=== PATIENT | male | born 1950 | race Caucasian/White ===

== ENCOUNTER 2022-08-26 03:35 | Inpatient (IN) ==
[2022-08-26] MEDS ORDERED: ONDANSETRON INJ 2 MG/ML 2 ML VIAL IV STA (05:18)
[2022-08-26] MEDS ORDERED: HYDROmorphone INJ 0.5 MG/0.5 ML SYR IV STA ×2 (05:18→07:38)
[2022-08-26 05:33] LABS: Appearance Urine Clear (Clear); Bilirubin Urine Negative (Negative); Blood Urine Negative (Negative); Color Urine Dark Yellow; Glucose Urine UA Negative (Negative); Ketones Urine 2+ (Negative); Leukocyte Esterase Urine Negative (Negative); Nitrite Urine Negative (Negative); Protein Urine Negative (Negative); Specific Gravity Urine 1.022 (1.000-1.030); Urobilinogen Urine Negative (Negative)
[2022-08-26 05:33] LABS: Basophils # (auto) 0.03 K/uL (0-0.2); Basophils % (auto) 0.3 %; Eosinophils % (auto) 2.2 %; Hematocrit (blood only) 39.8 % (40.1-51.0); Hemoglobin 14.3 g/dl (14.0-18.0); Immature Granulocytes # (auto) 0.03 K/uL (0.00-0.02); Immature Granulocytes % (auto) 0.3 %; Lymphocytes # (auto) 1.26 K/uL (1.2-3.4); Lymphocytes % (auto) 13.9 %; Mean Corpuscular Hemoglobin 33.9 pg (25.0-34.0); Mean Corpuscular Hgb Conc 35.9 g/dL (32.0-36.0); Mean Corpuscular Volume 94.3 fL (80.0-100.0); Mean Platelet Volume 10.4 fL (9.4-12.4); Monocytes # (auto) 0.58 K/uL (0.24-0.82); Monocytes % (auto) 6.4 %; Neutrophils # (auto) 6.95 K/uL (1.4-6.5); Neutrophils % (auto) 76.9 %; Platelet Count 159 K/uL (130-400); RDW Coefficient of Variation 12.6 % (11.5-14.5); RDW Standard Deviation 42.9 fL (36.4-46.3); Red Blood Count 4.22 M/uL (4.63-6.08); White Blood Count 9.05 K/ul (4.8-10.8)
[2022-08-26] MEDS ORDERED: SODIUM CHLORIDE 0.9% 1000ML 1,000 ML IV ONE (05:40)
[2022-08-26 05:42] LABS: iSTAT Creatinine 0.6 mg/dl (0.6-1.3); iSTAT Hemoglobin 12.6 g/dl (14.0-18.0); iSTAT Ionized Calcium 1.12 mmol/l (1.12-1.32)
[2022-08-26 05:42] LABS: Albumin Globulin Ratio 1.8 (0.9-2); Albumin Level 4.6 gm/dl (3.4-5.0); BUN Creatinine Ratio 30.2 (10-20); Bilirubin,Total 1.5 mg/dl (0.2-1.0); Calcium 9.8 mg/dl (8.5-10.1); Creatinine Clr Calc Pharmacy 96.3 ml/min; Est GFR (African American) 112.5 ml/min; Est GFR (Non-African American) 97.1 ml/min; Globulin 2.5 gm/dl (2.5-4.0); Potassium 3.9 mmol/L (3.5-5.1); Total Protein 7.1 gm/dl (6.0-8.3)
[2022-08-26] MEDS ORDERED: OPTIRAY 350 100ml IV ONE (05:45)
--- NOTE | 2022-08-26 07:23 | Emergency Department Note ---
Impression & Plan Small bowel obstruction Admit to the [facility] service ED Provider Note NAME: VINCE JAMIL AGE: 72 SEX: M ARRIVES VIA: Walk-In INFORMANT: Patient and his ED PROVIDER(S): Katiana Dalton DO CHIEF COMPLAINT: Abdominal pain PLAN: Disposition: Admit to the [facility] service Condition: Stable MEDICAL DECISION MAKING: This is a 72-year-old male patient who presents to the emergency department with abdominal pain. Patient does have a history of abdominal pain but states this is the worst episode has lasted the longest. Patient has a history of an abdominal hernia. I cannot appreciate a hernia on my physical exam. Patient has required IV analgesia for the pain. CT scan shows evidence of a high-grade partial small bowel obstruction. He has been on IV fluids and is remained n.p.o. [facility] will [facility] for further management. Triage Nursing notes reviewed and agree with them. Additional history obtained from his who is at the bedside Prior medical records reviewed Vital Signs: reviewed and unremarkable Differential diagnosis: Bowel obstruction, ileus, colitis, diverticulitis, incarcerated hernia ER treatment provided: IV Dilaudid IV Zofran IV normal saline Diagnostics interpreted by me: Cardiac Monitoring: Normal sinus rhythm at a rate of 80 Laboratory studies: See below Imaging studies: As per stat rad CT ABDOMEN & PELVIS With Contrast: Dilated loops of small bowel measure up to 3.3 cmwith a collapsed appearance of distal small bowel loops. Findings are c ompatible with a high-grade small bowel obstruction. Zone of transition is in the left hemipelvis likely related to adhesions Status post cholecystectomy Moderate ascites is likely associated with the small bowel process HPI: 72/M arrives for evaluation of abdominal pain. Patient developed significant periumbilical abdominal pain at noon time yesterday. He had no appetite and stopped eating. Patient has a history of bacterial over the growth in his abdomen since last year and has lost approximately 50 pounds. He takes Bentyl and stool softeners regularly for chronic abdominal pain. He has a history of diverticulitis and a hernia. However, he describes this pain as the worst it has ever been in the long as its ever been. Patient denies having any bowel movements and is not passing gas. ROS: See above HPI for pertinent positives & negatives. A total of 10 systems reviewed and were otherwise negative. PAST MEDICAL HISTORY:See Below PAST SURGICAL HISTORY:See Below FAMILY HISTORY:See Below SOCIAL HISTORY:See Below HOME MEDICATIONS:See list ALLERGIES:See list VITALS:See Below PHYSICAL EXAMINATION: HEENT: Head - normocephalic and atraumatic Pupils are equal, round, and reactive to light. Extraocular eye muscles are intact, and sclera are anicteric. Nose - moist nasal mucosa without discharge. Mouth - moist buccal mucosa. Oropharynx is nonerythematous and there is no tonsillar exudate or edema noted. Neck: Supple; no JVD, nuchal rigidity, cervical lymphadenopathy, or auscultated bruits. Heart: Regular rate and rhythm. There is a normal S1 and S2 with no murmurs, clicks, or gallops appreciated. Lungs: Clear to auscultation bilaterally with no wheezes, rales, or rhonchi. Abdomen: Soft, moderate tenderness to palpation around the umbilicus with good bowel sounds. There are no palpable pulsatile masses or hepatosplenomegaly. There is no guarding, rigidity, or rebound noted. Extremities: No evidence of cyanosis, clubbing, or edema. There are easily palpable peripheral pulses. Skin: warm and dry with good turgor and no rashes. ED COURSE: Times/Reassessments: 500: The patient was evaluated in room A-11. A complete history and physical was performed. An IV lock was initiated and labs are drawn as above. An order was placed for continuous cardiac monitoring. The patient was in a normal sinus rhythm at a rate of 80. Patient was started on IV normal saline solution. He was given a dose of IV Dilaudid and a dose of IV Zofran Patient went for CT scan of the abdomen/pelvis. I reviewed results of the laboratory studies with the patient and his . He was having more abdominal pain and was given another dose of IV Dilaudid. I discussed the case with the [facility]. 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 Tortuous colon Tubulovillous adenoma of colon Surgical History H/O colonoscopy H/O excision of lamina of cervical vertebra for decompression of spinal cord H/O mitral valve repair History of cholecystectomy History of esophagogastroduodenoscopy (EGD) History of incision and drainage Family History Mother Cancer Father Cancer Social History Smoking Status: Never smoker Hx Alcohol Use: No Hx Substance Use: No Preferred Language: Albanian Communication Ability: Effective Visual Impairment: No Limitations Hearing Ability: Normal Platform Man Required: No Beliefs That Will Affect Care: None marital status: Current Living Situation: Spouse current occupational status: employed Feels Safe at Home: Yes caffeine: Yes during the past year weight has: decreased > 10 lbs Do you think of yourself as: straight/heterosexual Gender Identity: Male Assistive Devices: None Allergies Allergies Allergy/AdvReac Type Severity Reaction Status Date / Time Penicillins Allergy Mild rash Verified 09/01/21 08:00 Home Meds Home Medications Medication Instructions Recorded Confirmed atorvastatin 10 mg tablet 10 mg PO DAILY 06/02/19 08/26/22 losartan 25 mg tablet 12.5 mg PO DAILY 06/02/19 08/26/22 aspirin 81 mg capsule 81 mg PO DAILY 08/18/21 08/26/22 ciprofloxacin HCl 500 mg tablet 500 mg PO BID 08/26/22 08/26/22 dicyclomine 10 mg capsule 5 mg PO TID PRN Abdominal Pain 08/26/22 08/26/22 docusate sodium 100 mg capsule 100 mg PO DAILY 08/26/22 08/26/22 polyethylene glycol 3350 17 gram 17 g PO DAILY 08/26/22 08/26/22 oral powder packet sildenafil 50 mg tablet 50 mg PO DAILY PRN Sexual Activity 08/26/22 08/26/22 travoprost 0.004 % eye drops 1 drp ophthalmic (eye) DAILY 08/26/22 08/26/22 Results & Data (ED) Vital Signs Vital Signs - 24 hr 08/26/22 03:38 08/26/22 05:30 08/26/22 06:30 Temperature 36.8 C Temperature Source Temporal Artery Scan Pulse Rate 84 Pulse Rate [Right Finger] 77 Pulse Rate from SpO2 Sensor Respiratory Rate 18 18 Respiratory Effort / Characteristics Non-Labored Spontaneous Respiratory Depth Normal Normal Respiratory Pattern Regular Blood Pressure 121/84 Blood Pressure [Right Arm] 126/70 Blood Pressure Mean 96 Blood Pressure Mean [Right Arm] 88 Pulse Oximetry 98 98 97 Oxygen Delivery Method Room Air Room Air Room Air Sepsis Recent Fever Within 48 Hours No Sepsis New/Unexplained Change in Mental Status No Sepsis Action Taken by Nursing No Action Required 08/26/22 05:51 08/26/22 06:00 08/26/22 06:00 Temperature Temperature Source Pulse Rate 74 72 Pulse Rate [Right Finger] Pulse Rate from SpO2 Sensor 75 71 Respiratory Rate 14 16 Respiratory Effort / Characteristics Respiratory Depth Respiratory Pattern Blood Pressure 122/67 Blood Pressure [Right Arm] Blood Pressure Mean 85 Blood Pressure Mean [Right Arm] Pulse Oximetry 96 97 Oxygen Delivery Method Sepsis Recent Fever Within 48 Hours Sepsis New/Unexplained Change in Mental Status Sepsis Action Taken by Nursing 08/26/22 06:30 08/26/22 07:00 08/26/22 07:00 Temperature Temperature Source Pulse Rate 71 70 Pulse Rate [Right Finger] Pulse Rate from SpO2 Sensor 71 71 Respiratory Rate 14 14 Respiratory Effort / Characteristics Respiratory Depth Respiratory Pattern Blood Pressure 116/65 Blood Pressure [Right Arm] Blood Pressure Mean 82 Blood Pressure Mean [Right Arm] Pulse Oximetry 97 97 Oxygen Delivery Method Sepsis Recent Fever Within 48 Hours Sepsis New/Unexplained Change in Mental Status Sepsis Action Taken by Nursing 08/26/22 07:30 Temperature Temperature Source Pulse Rate 88 Pulse Rate [Right Finger] Pulse Rate from SpO2 Sensor 89 Respiratory Rate 13 Respiratory Effort / Characteristics Respiratory Depth Respiratory Pattern Blood Pressure Blood Pressure [Right Arm] Blood Pressure Mean Blood Pressure Mean [Right Arm] Pulse Oximetry 95 Oxygen Delivery Method Sepsis Recent Fever Within 48 Hours Sepsis New/Unexplained Change in Mental Status Sepsis Action Taken by Nursing Laboratory Data Result diagrams: 08/26/22 03:50 08/26/22 14:18 Lab Results 08/26/22 08/26/22 08/26/22 Range/Units 03:50 03:50 04:00 WBC 9.05 (4.8-10.8) K/ul RBC 4.22 L (4.63-6.08) M/uL Hgb 14.3 (14.0-18.0) g/dl POC Hgb (14.0-18.0) g/dl Hct 39.8 L (40.1-51.0) % POC Hct (42-52) % MCV 94.3 (80.0-100.0) fL MCH 33.9 (25.0-34.0) pg MCHC 35.9 (32.0-36.0) g/dL RDW Std Deviation 42.9 (36.4-46.3) fL RDW Coeff of Rudi 12.6 (11.5-14.5) % Plt Count 159 (130-400) K/uL MPV 10.4 (9.4-12.4) fL Immature Gran % (Auto) 0.3 % Neut % (Auto) 76.9 % Lymph % (Auto) 13.9 % Dale % (Auto) 6.4 % Eos % (Auto) 2.2 % Baso % (Auto) 0.3 % Neut # (Auto) 6.95 H (1.4-6.5) K/uL Lymph # (Auto) 1.26 (1.2-3.4) K/uL Dale # (Auto) 0.58 (0.24-0.82) K/uL Eos # (Auto) 0.20 (0-0.50) K/uL Baso # (Auto) 0.03 (0-0.2) K/uL Immature Gran # (Auto) 0.03 H (0.00-0.02) K/uL POC Sodium (135-144) mmol/L Sodium 134 L (136-145) mmol/L POC Potassium (3.3-5.0) mmol/L Potassium 3.9 (3.5-5.1) mmol/L POC Chloride (101-112) mmol/L Chloride 99 (98-107) mmol/L Carbon Dioxide 28 (21-32) mmol/L POC Total CO2 (24-31) mmol/L Anion Gap 7 (3-11) POC Anion Gap (16-25) mmol/L POC BUN (7-18) mg/dl BUN 19 (6-23) mg/dl Creatinine 0.63 (0.6-1.4) mg/dl POC Creatinine (0.6-1.3) mg/dl Est Cr Clr Drug Dosing 96.3 ml/min Est GFR ( Amer) 112.5 ml/min Est GFR (Non-Af Amer) 97.1 ml/min BUN/Creatinine Ratio 30.2 H (10-20) Glucose 95 (70-99(Fasting)) mg/dl POC Glucose (other) (70-99) mg/dl Calcium 9.8 (8.5-10.1) mg/dl POC Ioniz Calcium Minerva (1.12-1.32) mmol/l Total Bilirubin 1.5 H (0.2-1.0) mg/dl AST 20 (13-39) U/L ALT 18 (7-52) U/L Alkaline Phosphatase 71 (34-104) U/L Total Protein 7.1 (6.0-8.3) gm/dl Albumin 4.6 (3.4-5.0) gm/dl Globulin 2.5 (2.5-4.0) gm/dl Albumin/Globulin Ratio 1.8 (0.9-2) Lipase 8 L (11-82) U/L Urine Color Dark Yellow Urine Appearance Clear (Clear) Urine pH 5.0 (4.5-7.5) Ur Specific [place] 1.022 (1.000-1.030) Urine Protein Negative (Negative) Urine Glucose (UA) Negative (Negative) Urine Ketones 2+ H (Negative) Urine Blood Negative (Negative) Urine Nitrite Negative (Negative) Urine Bilirubin Negative (Negative) Urine Urobilinogen Negative (Negative) Ur Leukocyte Esterase Negative (Negative) 08/26/22 Range/Units 05:26 WBC (4.8-10.8) K/ul RBC (4.63-6.08) M/uL Hgb (14.0-18.0) g/dl POC Hgb 12.6 L (14.0-18.0) g/dl Hct (40.1-51.0) % POC Hct 37 L (42-52) % MCV (80.0-100.0) fL MCH (25.0-34.0) pg MCHC (32.0-36.0) g/dL RDW Std Deviation (36.4-46.3) fL RDW Coeff of Rudi (11.5-14.5) % Plt Count (130-400) K/uL MPV (9.4-12.4) fL Immature Gran % (Auto) % Neut % (Auto) % Lymph % (Auto) % Dale % (Auto) % Eos % (Auto) % Baso % (Auto) % Neut # (Auto) (1.4-6.5) K/uL Lymph # (Auto) (1.2-3.4) K/uL Dale # (Auto) (0.24-0.82) K/uL Eos # (Auto) (0-0.50) K/uL Baso # (Auto) (0-0.2) K/uL Immature Gran # (Auto) (0.00-0.02) K/uL POC Sodium 134 L (135-144) mmol/L Sodium (136-145) mmol/L POC Potassium 4.0 (3.3-5.0) mmol/L Potassium (3.5-5.1) mmol/L POC Chloride 97 L (101-112) mmol/L Chloride (98-107) mmol/L Carbon Dioxide (21-32) mmol/L POC Total CO2 27 (24-31) mmol/L Anion Gap (3-11) POC Anion Gap 15.0 L (16-25) mmol/L POC BUN 18 (7-18) mg/dl BUN (6-23) mg/dl Creatinine (0.6-1.4) mg/dl POC Creatinine 0.6 (0.6-1.3) mg/dl Est Cr Clr Drug Dosing ml/min Est GFR ( Amer) ml/min Est GFR (Non-Af Amer) ml/min BUN/Creatinine Ratio (10-20) Glucose (70-99(Fasting)) mg/dl POC Glucose (other) 93 (70-99) mg/dl Calcium (8.5-10.1) mg/dl POC Ioniz Calcium Minerva 1.12 (1.12-1.32) mmol/l Total Bilirubin (0.2-1.0) mg/dl AST (13-39) U/L ALT (7-52) U/L Alkaline Phosphatase (34-104) U/L Total Protein (6.0-8.3) gm/dl Albumin (3.4-5.0) gm/dl Globulin (2.5-4.0) gm/dl Albumin/Globulin Ratio (0.9-2) Lipase (11-82) U/L Urine Color Urine Appearance (Clear) Urine pH (4.5-7.5) Ur Specific [place] (1.000-1.030) Urine Protein (Negative) Urine Glucose (UA) (Negative) Urine Ketones (Negative) Urine Blood (Negative) Urine Nitrite (Negative) Urine Bilirubin (Negative) Urine Urobilinogen (Negative) Ur Leukocyte Esterase (Negative) Administered Medications Aspirin (Aspirin 81 Mg Ectab) 81 mg PO DAILY XOCHITL Stop: 09/25/22 13:59 Last Admin: 08/26/22 14:44 Dose: Not Given Documented By: ED Atorvastatin Calcium (Atorvastatin 10 Mg Tab) 10 mg PO DAILY XOCHITL Stop: 09/25/22 13:59 Last Admin: 08/26/22 14:44 Dose: Not Given Documented By: ED Ciprofloxacin (Ciprofloxacin 500 Mg Tab) 500 mg PO BID XOCHITL Stop: 09/05/22 13:59 Last Admin: 08/26/22 14:44 Dose: Not Given Documented By: ED Docusate Sodium (Docusate Sodium 100 Mg Cap) 100 mg PO DAILY XOCHITL Stop: 09/25/22 13:59 Last Admin: 08/26/22 14:44 Dose: Not Given Documented By: ED Lactated Ringer's (Lr) 1,000 mls @ 75 mls/hr IV .[id number] XOCHITL Stop: 09/25/22 07:44 Last Admin: 08/26/22 07:56 Dose: 75 mls/hr Documented By: ED Ketorolac Tromethamine (Ketorolac Tromethamine 15 Mg/Ml Vial) 15 mg IV Q8H PRN PRN Reason: moderate pain Stop: 08/31/22 09:44 Last Admin: 08/26/22 17:02 Dose: 15 mg Documented By: SHIRA Losartan Potassium (Losartan Potassium 25 Mg Tab) 12.5 mg PO DAILY XOCHITL Stop: 09/25/22 13:59 Last Admin: 08/26/22 14:44 Dose: Not Given Documented By: ED Polyethylene Glycol (Polyethylene (Miralax) 17 Gm Pack) 17 gm PO DAILY XOCHITL Stop: 09/25/22 13:59 Last Admin: 08/26/22 14:44 Dose: Not Given Documented By: ED Travoprost (Travoprost Z 0.004% Oph Soln 2.5 Ml Btl) 1 drops OPB DAILY XOCHITL Stop: 09/25/22 13:59 Last Admin: 08/26/22 15:25 Dose: 1 drops Documented By: SHIRA Discontinued Medications Hydromorphone HCl (Hydromorphone Inj 0.5 Mg/0.5 Ml Syr) 0.5 mg IV NOW STA Stop: 08/26/22 05:19 Last Admin: 08/26/22 05:26 Dose: 0.5 mg Documented By: KASSIDY Hydromorphone HCl (Hydromorphone Inj 0.5 Mg/0.5 Ml Syr) 0.5 mg IV NOW STA Stop: 08/26/22 07:39 Last Admin: 08/26/22 07:55 Dose: 0.5 mg Documented By: RONNA Sodium Chloride (Nss 1000ml) 1,000 mls @ 999 mls/hr IV .Q1H1M ONE Stop: 08/26/22 06:40 Last Infusion: 08/26/22 07:56 Dose: 0 mls/hr Documented By: Admin: 08/26/22 05:47 Dose: 999 mls/hr Documented By: KASSIDY Ioversol (Optiray 350 100ml) 100 ml IV ONCE ONE Stop: 08/26/22 05:46 Last Admin: 08/26/22 05:46 Dose: 87 ml Documented By: TRACY Ondansetron HCl (Ondansetron Inj 2 Mg/Ml 2 Ml Vial) 4 mg IV NOW STA Stop: 08/26/22 05:19 Last Admin: 08/26/22 05:26 Dose: 4 mg Documented By: KASSIDY Imaging Data Radiologist's Impression: Abdomen/Pelvis CT 08/26/22 05:[address] WITH IV CONTRAST CT DOSE: 269.25 mGy.cm HISTORY: Generalized abdominal pain. Assess for small bowel obstruction. TECHNIQUE: Multiaxial CT images of the abdomen and pelvis were performed following the use of intravenous contrast. A dose lowering technique was ut ilized adhering to the principles of ALARA. COMPARISON STUDY: None. FINDINGS: The lung bases are clear. No pneumoperitoneum. No pneumatosis. No susp icious lytic or blastic osseous lesions. Mild body wall edema. Small amount of ascites. The bladder appears unremarkable. Moderate well-formed stool seen throughout the colon. Normal appendix. Multiple dilated gas and fluid-filled loops of proximal mid small bowel seen throughout the abdomen. There is a focal transition point within the left deep pelvis within a distal bowel loop on image 341 with the distal ileal loops being decompressed. Therefore, this is consistent with a small bowel obstruction. Prior cholecystectomy. The liver, pancreas, adrenal glands unremarkable. There are few punctate calcified granulomas within the spleen. A few bilateral renal hypodense lesions which favor cysts. No hydronephrosis. There is an indeterminate exophytic 12 mm lesion within the left kidney on image 175. This favors a hyperdense cyst but could represent a solid renal lesion. The main portal vein is patent. Dilated common bile duct is likely due to the postcholecystectomy state. No retroperitoneal lymphadenopathy. Mild calcified plaque within the normal caliber abdominal aorta. IMPRESSION: 1. Small bowel obstruction with the transition point located within the left deep pelvis as described above. 2. Small amount of ascites. 3. A 12 mm exophytic indeterminate lesion within the left kidney. This favors a hyperdense cyst but could represent a solid renal mass. Follow-up nonemergent renal ultrasound recommended for further evaluation. 4. Normal appendix. 5. Additional findings as described above. ACT 112: Negative or not required by law. Electronically signed by: Troy Mcdaniels M.D. 08/26/2022 7:59 AM Discharge Plan Visit Data Chief Complaint: Abdominal Pain Stated Complaint: ABD PAIN ED Provider: Katiana Dalton Discharge Problem: Small bowel obstruction Patient Disposition: Admitted As Inpatient Discharge Instructions Interventions: ED Discharge Assessment Last Done: 08/26/22 17:50
[2022-08-26] MEDS ORDERED: ONDANSETRON INJ 2 MG/ML 2 ML VIAL IV PRN (07:38)
[2022-08-26] MEDS: LACTATED RINGER'S 1,000 ML IV SCH ×2 (07:56→21:30)
--- NOTE | 2022-08-26 08:01 | CT Scan Report ---
ABDOMEN AND PELVIS CT WITH IV CONTRAST CT DOSE: 269.25 mGy.cm HISTORY: Generalized abdominal pain. Assess for small bowel obstruction. TECHNIQUE: Multiaxial CT images of the abdomen and pelvis were performed following the use of intrave nous contrast. A dose lowering technique was utilized adhering to the principles of ALARA. COMPARISON STUDY: None. FINDINGS: The lung bases are clear. No pneumoperitoneum. No pneumatosis. No suspicious lytic or blast ic osseous lesions. Mild body wall edema. Small amount of ascites. The bladder appears unremarkable. Moderate well-formed stool seen throughout the colon. Normal appendix. Multiple dilated gas and fluid -filled loops of proximal mid small bowel seen throughout the abdomen. There is a focal transition po int within the left deep pelvis within a distal bowel loop on image 341 with the distal ileal loops b eing decompressed. Therefore, this is consistent with a small bowel obstruction. Prior cholecystectom y. The liver, pancreas, adrenal glands unremarkable. There are few punctate calcified granulomas with in the spleen. A few bilateral renal hypodense lesions which favor cysts. No hydronephrosis. There is an indeterminate exophytic 12 mm lesion within the left kidney on image 175. This favors a hyperdens e cyst but could represent a solid renal lesion. The main portal vein is patent. Dilated common bile duct is likely due to the postcholecystectomy state. No retroperitoneal lymphadenopathy. Mild calcifi ed plaque within the normal caliber abdominal aorta. IMPRESSION: 1. Small bowel obstruction with the transition point located within the left deep pelvis as described above. 2. Small amount of ascites. 3. A 12 mm exophytic indeterminate lesion within the left kidney. This favors a hyperdense cyst but c ould represent a solid renal mass. Follow-up nonemergent renal ultrasound recommended for further jose luation. 4. Normal appendix. 5. Additional findings as described above. ACT 112: Negative or not required by law. Electronically signed by: Troy Mcdaniels M.D. 08/26/2022 7:59 AM
--- NOTE | 2022-08-26 08:47 | History & Physical Report ---
Date of Service August 26, 2022 Assessment & Plan (1) SBO (small bowel obstruction): (2) Diverticulosis of jejunum without diverticulitis: Plan: - Admit to med surg - GI consulted - General Surg consulted - CT today reviewed as above concerning for stricture as can see Multiple dilated gas and fluid-filled loops of proximal mid small bowel seen throughout the abdomen. There is a focal transition point within the left deep pelvis within a distal bowel loop on image 341 with the distal ileal loops being decompressed. Therefore, this is consistent with a small bowel obstruction. - Recent studies from outpatient [facility] reviewed Colonoscopy 02/04/2021 with normal terminal ileum, multiple small mouthed diverticula in the sigmoid, nonbleeding internal hemorrhoids on retroflexion. Upper device assisted enteroscopy on 02/04/2021 with irregular Z-line, mild gastritis, normal duodenum, severe huge chapman jejunal diverticulosis, no mass, lesions or polyp Upper EUS for suspected choledocholithiasis and abdominal pain, normal esophagus, stomach, duodenal bulb and second portion of the duodenum, no significant pathology in the ampulla or common bile duct, history of cholecystectomy, pancreatic parenchymal abnormalities consisting with hyperechoic strands and hyperechoic foci were noted in the entire pancreas, celiac trunk, endosonographically normal - Previously done studies includes urea breath test, stool antigens -- negative - WBC 9K - T bili 1.5, other LFTs within normal ranges - Stool cultures - No hx of IBS, Crohns disease, UC - Denies alcohol use, previous chewing tobacco use but quit 20 years ago. - Negative NSAID use, kidney today with normal function, ok to use toradol for pain prn today, tramdol if needed prn - Currently on cipro 500 mg BID since May per colorectal surgeon and GI - will continue - Cont LR at 75 ml/hr for hydration while NPO - No nausea, so no needs for NGT at this time - antiemetics ordered (3) HLD (hyperlipidemia): Plan: - Cont statin therapy (4) Hypertension: Plan: - Monitor BP, currently in 120s/80s, at home on losartan 12.5 mg daily DVT ppx: - teds, scds CODE: Full code Dispo: From home, likely to remain in the hospital x 1-2 days (5) Renal neoplasm: History of Present Illness Chief Complaint: Abdominal pain Primary Care Provider: Davi Kaur MD This is a 72-year-old male with PMHx of HTN, HLD, jejunal diverticulosis, history of subdural hematoma in 2016, history of intercerebral hemorrhage without residual deficit 2018, BPH without LUTS. Previously, the patient has been following with GI as an outpatient for abdominal pain and weight loss which would be began around March 2020. During his visit on 03/23/22, he reported attacks of abdominal pain, bloating, reflux 2 times per week lasting a few hours, but then sometimes has no symptoms for 2 weeks. Patient has previously reported that laying down helps as well as laying on the left side, and that symptoms would subside within a small amount of time. No constipation, and is having regular soft bowel movements daily. Since the beginning of that 2 year timeframe he has lost about 30-40 lbs. His lowest weight was about 130 lbs, and currently is back up to about 140 lbs. Pt was started on a 10 day course of Cipro 500 mg twice daily to assist specifically with weight gain and on dicyclomine for abdominal cramping, but reports this medication did not seem to improve symptoms. He is also status post cholecystectomy in February 2021. He recently saw colorectal surgeon, Dr. Lambert at [facility] – [place], [place] on 05/30/2022 and was restarted on ciprofloxacin 500 mg twice a day for 3 months for weight gain again. He had seen her again on 07/25/22 and at that point her plan was to continue antibiotics and was considering diagnostic laparoscopy and small bowel resection of worst appearing disease. Today the patient reports that his pain was different, starting yesterday and was unable to be relieved by lying down or lying on his left side. The pain was also constant in nature and unable to be improved with anything. He did not try any OTC medications, Tylenol for pain. He also reports that he has had no appetite recently and who is present at bedside is concerned and continues to try to get him to eat however he just feels that he cannot. He denies any nausea, vomiting. Last bowel movement was 2 days ago. Stated that occasionally he passes mucous with bowel movements. Reports that he is passing small amounts of flatus and belching today. He denies any abdominal distention currently. Patient denies any fevers, chills or sweats. He denies any known swollen lymph nodes or night sweats. 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 His only other concern is right hip pain, which he feels whenever he is up on his feet for extended periods of time. Sometimes his hands feel arthritic as well. He does not take any medication for this. Allergies Allergy/AdvReac Type Severity Reaction Status Date / Time Penicillins Allergy Mild rash Verified 09/01/21 08:00 Home Medications Medication Instructions Recorded Confirmed Type atorvastatin 10 mg tablet 10 mg PO DAILY 06/02/19 08/26/22 History losartan 25 mg tablet 12.5 mg PO DAILY 06/02/19 08/26/22 History aspirin 81 mg capsule 81 mg PO DAILY 08/18/21 08/26/22 History ciprofloxacin HCl 500 mg tablet 500 mg PO BID 08/26/22 08/26/22 History dicyclomine 10 mg capsule 5 mg PO TID PRN Abdominal Pain 08/26/22 08/26/22 History docusate sodium 100 mg capsule 100 mg PO DAILY 08/26/22 08/26/22 History polyethylene glycol 3350 17 gram 17 g PO DAILY 08/26/22 08/26/22 History oral powder packet sildenafil 50 mg tablet 50 mg PO DAILY PRN Sexual Activity 08/26/22 08/26/22 History travoprost 0.004 % eye drops 1 drp ophthalmic (eye) DAILY 08/26/22 08/26/22 History 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 Tortuous colon Tubulovillous adenoma of colon Surgical History H/O colonoscopy H/O excision of lamina of cervical vertebra for decompression of spinal cord H/O mitral valve repair History of cholecystectomy History of esophagogastroduodenoscopy (EGD) History of incision and drainage Family History Mother Cancer Father Cancer Social History Smoking Status: Never smoker Hx Alcohol Use: No Hx Substance Use: No Preferred Language: Albanian Visual Impairment: No Limitations Hearing Ability: Normal Beliefs That Will Affect Care: None marital status: Current Living Situation: Spouse current occupational status: employed Feels Safe at Home: Yes caffeine: Yes during the past year weight has: decreased > 10 lbs Do you think of yourself as: straight/heterosexual Gender Identity: Male Assistive Devices: Glasses Review of Systems Review of Systems: Constitutional: No fever, sweats or chills Eyes: No diplopia, no worsening or blurred vision ENT: normal hearing, no trouble swallowing Respiratory: No cough, sputum, dyspnea at rest or on exertion Cardiovascular: No chest pain, tightness or palpitations Abdomen: As per HPI. Musculoskeletal: + R hip pain, occasional finer and wrist pain, no other specific joint pain, calf pain, or swelling Neurologic: No weakness, numbness/tingling, or balance problems Psychiatric: No anxiety or depression Skin: No rash or itch Physical Exam Physical Exam: General: awake, alert, no apparent distress, thin, BMI 20.4 Head: Normocephalic, atraumatic ENT: PERRL, EOMI, no pharyngeal exudate, mucous membranes moist Chest: Clear to auscultation, on room air, no adventitious breath sounds Cardiac: Regular rate and rhythm, no murmur, no JVD, normal peripheral pulses, good capillary refill Abdominal: Hypoactive bowel sounds x 4 quadrants,no high pitched tinkling sounds, muscular abdomen, nondistended, minimally tender to palpation, no rebound or guarding Extremities: Normal inspection, no peripheral edema or erythema, calfs nontender to palpation Psych: Normal mood and affect Neuro: AAO x 3, strength intact bilaterally and rated 5/5, no motor deficits, speech is clear, no peripheral sensory deficits Results & Data Results & Data ([facility]) Vital Signs (Past 12 Hours) Vital Signs Temp Pulse Pulse Resp BP BP Pulse Ox 08/26/22 08:00 73 16 97 08/26/22 08:00 128/68 08/26/22 07:30 88 13 95 08/26/22 07:00 70 14 97 08/26/22 07:00 116/65 08/26/22 06:30 71 14 97 08/26/22 06:00 72 16 97 08/26/22 06:00 122/67 08/26/22 05:51 74 14 96 08/26/22 06:30 97 08/26/22 05:30 77 18 126/70 98 08/26/22 03:38 36.8 C 84 18 121/84 98 O2 Del Method 08/26/22 08:00 08/26/22 08:00 08/26/22 07:30 08/26/22 07:00 08/26/22 07:00 08/26/22 06:30 08/26/22 06:00 08/26/22 06:00 08/26/22 05:51 08/26/22 06:30 Room Air 08/26/22 05:30 Room Air 08/26/22 03:38 Room Air Laboratory Results 08/26/22 08/26/22 08/26/22 08:01 05:26 04:00 WBC RBC Hgb POC Hgb 12.6 L Hct POC Hct 37 L MCV MCH MCHC RDW Std Deviation RDW Coeff of Rudi Plt Count MPV Immature Gran % (Auto) Neut % (Auto) Lymph % (Auto) [place] % (Auto) Eos % (Auto) Baso % (Auto) Neut # (Auto) Lymph # (Auto) [place] # (Auto) Eos # (Auto) Baso # (Auto) Immature Gran # (Auto) POC Sodium 134 L Sodium POC Potassium 4.0 Potassium POC Chloride 97 L Chloride Carbon Dioxide POC Total CO2 27 Anion Gap POC Anion Gap 15.0 L POC BUN 18 BUN Creatinine POC Creatinine 0.6 Est Cr Clr Drug Dosing Est GFR ( Amer) Est GFR (Non-Af Amer) BUN/Creatinine Ratio Glucose POC Glucose (other) 93 Calcium POC Ioniz Calcium [place] 1.12 Total Bilirubin AST ALT Alkaline Phosphatase Total Protein Albumin Globulin Albumin/Globulin Ratio Lipase Urine Color Dark Yellow Urine Appearance Clear Urine pH 5.0 Ur Specific [place] 1.022 Urine Protein Negative Urine Glucose (UA) Negative Urine Ketones 2+ H Urine Blood Negative Urine Nitrite Negative Urine Bilirubin Negative Urine Urobilinogen Negative Ur Leukocyte Esterase Negative SARS-CoV-2, RNA, NAAT NEGATIVE 08/26/22 08/26/22 03:50 03:50 WBC 9.05 RBC 4.22 L Hgb 14.3 POC Hgb Hct 39.8 L POC Hct MCV 94.3 MCH 33.9 MCHC 35.9 RDW Std Deviation 42.9 RDW Coeff of Rudi 12.6 Plt Count 159 MPV 10.4 Immature Gran % (Auto) 0.3 Neut % (Auto) 76.9 Lymph % (Auto) 13.9 [place] % (Auto) 6.4 Eos % (Auto) 2.2 Baso % (Auto) 0.3 Neut # (Auto) 6.95 H Lymph # (Auto) 1.26 [place] # (Auto) 0.58 Eos # (Auto) 0.20 Baso # (Auto) 0.03 Immature Gran # (Auto) 0.03 H POC Sodium Sodium 134 L POC Potassium Potassium 3.9 POC Chloride Chloride 99 Carbon Dioxide 28 POC Total CO2 Anion Gap 7 POC Anion Gap POC BUN BUN 19 Creatinine 0.63 POC Creatinine Est Cr Clr Drug Dosing 96.3 Est GFR ( Amer) 112.5 Est GFR (Non-Af Amer) 97.1 BUN/Creatinine Ratio 30.2 H Glucose 95 POC Glucose (other) Calcium 9.8 POC Ioniz Calcium Min[place]a Total Bilirubin 1.5 H AST 20 ALT 18 Alkaline Phosphatase 71 Total Protein 7.1 Albumin 4.6 Globulin 2.5 Albumin/Globulin Ratio 1.8 Lipase 8 L Urine Color Urine Appearance Urine pH Ur Specific [place] Urine Protein Urine Glucose (UA) Urine Ketones Urine Blood Urine Nitrite Urine Bilirubin Urine Urobilinogen Ur Leukocyte Esterase SARS-CoV-2, RNA, NAAT Diagnostic Findings Abdomen/Pelvis CT 08/26/22 05:[address] WITH IV CONTRAST CT DOSE: 269.25 mGy.cm HISTORY: Generalized abdominal pain. Assess for small bowel obstruction. TECHNIQUE: Multiaxial CT images of the abdomen and pelvis were performed following the use of intravenous contrast. A dose lowering technique was utilized adhering to the principles of ALARA. COMPARISON STUDY: None. FINDINGS: The lung bases are clear. No pneumoperitoneum. No pneumatosis. No suspicious lytic or blastic osseous lesions. Mild body wall edema. Small amount of ascites. The bladder appears unremarkable. Moderate well-formed stool seen throughout the colon. Normal appendix. Multiple dilated gas and fluid-filled loops of proximal mid small bowel seen throughout the abdomen. There is a focal transition point within the left deep pelvis within a distal bowel loop on image 341 with the distal ileal loops being decompressed. Therefore, this is consistent with a small bowel obstruction. Prior cholecystectomy. The liver, pancreas, adrenal glands unremarkable. There are few punctate calcified granulom as within the spleen. A few bilateral renal hypodense lesions which favor cysts. No hydronephrosis. There is an indeterminate exophytic 12 mm lesion within the left kidney on image 175. This favors a hyperdense cyst but could represent a solid renal lesion. The main portal vein is patent. Dilated common bile duct is likely due to the postcholecystectomy state. No retroperitoneal lymphadenopathy. Mild calcified plaque within the normal caliber abdominal aorta. IMPRESSION: 1. Small bowel obstruction with the transition point located within the left deep pelvis as described above. 2. Small amount of ascites. 3. A 12 mm exophytic indeterminate lesion within the left kidney. This favors a hyperdense cyst but could represent a solid renal mass. Follow-up nonemergent renal ultrasound recommended for further evaluation. 4. Normal appendix. 5. Additional findings as described above. ACT 112: Negative or not required by law. Electronically signed by: Troy Mcdaniels M.D. 08/26/2022 7:59 AM Code Status & VTE Plan Code Status Full code VTE Prophylaxis Plan VTE Prophylaxis will be ordered: Yes Supervising Physician Co-Signing Physician Notes I have seen and examined the patient and have discussed the case with the provider above. I agree with the assessment and plan as stated. 72 yo M presents with abdominal pain and intermittent vomiting. He has an involved hi story of weight loss, chronic abdominal pain and intermittent nausea and is currently on chronic antibiotics. He is being worked up by GI and general surgery for his weight loss. Significant weight loss in the past year despite normal diet. Normal BMs but sometimes they appear like a "mucus ball." Breath hydrogen test for small bacterial overgrowth was inconclusive. He has been placed on chronic abx and had gained 10 lbs but weight has plateaued. Large jejunal diverticula present on imaging and scopes. He is now presenting with what appears to be a small bowel obstruction. Last BM was two days ago and was formed. Last meal was yesterday. He takes docusate and Miralax daily. Physical exam reveals no acute distress, hemodynamically stable. Cardiac exam reveals S1/2 heard with no m/g/r, lungs are clear to auscultation throughout. Abdomen is soft , NTND (has already had two doses of hydromorphone and antiemetic therapy). Fingernails with engine oil (pt is a neon sign mechanic). No per ipheral edema or other abnormality on exam. He is thin but doesn't appear cachectic. Labs reveal normal CBC, normal CMP x total bili 1.5. UA normal. CT a/p reveals small bowel obstruction with the transition point located within the left deep pelvis with a small amount of ascites. There is an incidental finding of 12 mm exophytic indeterminate lesion within the left kidney. This favors a hyperdense cyst but could represent a solid renal mass. Follow-up nonemergent renal ultrasound recommended for further evaluation. Agree with bowel rest and supportive care. GI and general surgery consults given historical complexity. DO Triston
[2022-08-26] MEDS ORDERED: traMADol HCL 50 MG TABLET PO PRN (09:45)
[2022-08-26] MEDS ORDERED: KETOROLAC TROMETHAMINE 15 MG/ML VIAL IV PRN (09:45)
[2022-08-26] MEDS ORDERED: DICYCLOMINE HCL 10 MG CAP PO PRN (13:23)
[2022-08-26] MEDS ORDERED: SILDENAFIL 50 MG PO PRN (13:23)
[2022-08-26] MEDS ORDERED: ACETAMINOPHEN 325 MG TAB PO PRN (13:23)
--- NOTE | 2022-08-26 13:48 | Gastrointestinal Consultation ---
Date of Consultation August 26, 2022 Assessment & Plan (1) SBO (small bowel obstruction): 72 year old male with history of BPH, hyperlipidemia, closed head injury, mitral regurg S/P repair, colon admitted with SBO Intermittent abd pain, weight loss x 2/3 years, EGD/Colon negative, CTAP w/ couple of nodular areas in the small bowel loop in the left abdomen could be intraluminal. Follow up CTE was negative. Was planned for VCE, retained patency in the right lower quadrant, likely in the distal small bowel. Enteroscopy in [place] w/ severe huge chapman jejunal diverticulosis. Been treated w/ ABX for suspected SIBO given flare up of his symptoms w/ negative imaging. Most recently he was evaluated by colorectal surgery and there is a tentative plan for a diagnostic laparoscopy with small bowel resection. Now admitted w/ SBO with the transition point located within the left deep pelvis as described above. Agree with general surgery consultation NPO for bowel rest Continue IVF for hydration Would consider NG tube placement if he develops nausea/vomiting Antiemetics PRN Analgesia PRN Can continue home dosing of ABX He notes his symptoms returned about 1 week ago. Midline abdominal pain. Present x 1 week. Worsened overnight and became more severe, not improved with OTC t herapy. Denies any associated nausea/vomiting. Suggests his last BM was yesterday and that this movement was normal. He has passed gas last evening and today. Currently, he states that he feels well and his pain is controlled. CT showing SBO. Weight max was 219 Supervising Physician Co-Signing Physician Notes I saw and evaluated the patient. I discussed his case with my nurse practitioner Ms. Fernandez. Patient presented with abdominal discomfort and was found to have evidence of a recurrent small bowel obstruction. He has had a fairly extensive gastrointestinal evaluation in the past to include upper endoscopy colonoscopy and wireless capsule endoscopy. The patient does have a transition point seen on the CT scan thus perhaps the patient would be best served with general surgery evaluation. Physical examination Pleasant male no obvious distress , Abdomen mildly tender without rebound Impression patient with a recurrent small bowel obstruction with transition point in his lower pelvis. Generally would recommend conservative therapy with n.p.o. status, perhaps NG tube placement and IV hydration. Would recommend general surgery consultation as there is feels that this likely be more beneficial to this patient. For the present time we would not recommend any repeat gastrointestinal evaluation.: Recommendations continue IV hydration Consider placement of an NG tube General surgery consultation GI to sign off please call with questions History of Present Illness Reason for Consultation: SBO Requesting Physician: Emelia Attending Physician: Romario Zuñiga MD History of Present Illness 72 year old male with history of BPH, hyperlipidemia, closed head injury, mitral regurg S/P repair, colon admitted with SBO. He has a complex GI history, weight loss, constipation, abd pain, EGD/Colon negative, CTAP w/ couple of nodular areas in the small bowel loop in the left abdomen could be intraluminal. Follow up CTE was negative. Was planned for VCE. Had worsening abd pain pre- procedure so KUB obtained and showed wall thickening of a loop of normal sized small bowel. Had patency capsule which appeared retained in the right lower quadrant, likely in the distal small bowel. Enteroscopy in [place] w/ severe huge chapman jejunal diverticulosis. He has been treated intermittently with ABX for suspected SIBO given flare up of his symptoms. Most recently he was evaluated by colorectal surgery and there is a tentative plan for a diagnostic laparoscopy with small bowel resection. He notes his symptoms returned about 1 week ago. Midline abdominal pain. Present x 1 week. Worsened overnight and became more severe, not improved with OTC therapy. Denies any associated nausea/vomiting. Suggests his last BM was yesterday and that this movement was normal. He has passed gas last evening and today. Currently, he states that he feels well and his pain is controlled. CT showing SBO. Weight max was 219 Unintentional weight loss from [id number] Weight stable from [id number] CTAP 2021: Small bowel obstruction with the transition point located within the left deep pelvis as described above. Small amount of ascites. A 12 mm exophytic indeterminate lesion within the left kidney. This favors a hyperdense cyst but could represent a solid renal mass. Follow-up nonemergent renal ultrasound recommended for further evaluation. Normal appendix. Hydrogen Breath test 2020: inconclusive KUB 2020:Ovoid radiopaque foreign body in the right lower quadrant, likely in the distal small bowel. Nonobstructive bowel gas pattern, with a large amount of gas throughout normal caliber large bowel. KUB 2020:Questionable wall thickening of a loop of normal sized small bowel in the right lower quadrant. 2. No evidence of intestinal obstruction. CTE 2020: No gross abnormality identified within the bowel aside from large amount of retained fecal material throughout the colon. The small bowel loops are better distended on the previous examination and the small nodular opacities can no longer clearly be identified. Remaining findings are stable from the recent diagnostic CT. CTAP 2020: Mild to moderate stool burden in the colon. Couple of nodular areas in the small bowel loop in the left abdomen could be intraluminal. Follow-up CT enterography recommended. Upper Balloon Enteroscopy 2020: To evaluate manuel-jejunal "nodular" areas seen on CT scan: - Z-line regular, 46 cm from the incisors. - Mild gastritis (previously biopsied andnegative for H. pylori). - Normal examined duodenum. - Successful single balloon-assisted enteroscopy to distal jejunum. - Severe huge chapman jejunal diverticulosis, most likely correlating to the finding seen on CT scan. - No mass lesions or polyps seen. EGD 2020: Normal esophagus. - Erythematous mucosa in the antrum. Biopsied. - Normal duodenal bulb and second portion of the duodenum. Biopsied EUS 2020: - Normal esophagus. - Normal stomach. - Normal duodenal bulb and second portion of the duodenum. Biopsied. - There was no sign of significant pathology in the ampulla. - There was no sign of significant pathology in the common bile duct. - Evidence of a cholecystectomy. - There was no evidence of significant pathology in the visualized portion of the liver. - Pancreatic parenchymal abnormalities consisting of hyperechoic strands and hyperechoic foci were noted in the entire pancreas. - The celiac trunk was endosonographically normal. Colonoscopy 2020: The examined portion of the ileum was normal. - Diverticulosis in the sigmoid colon. - Non-bleeding internal hemorrhoids. Allergies Allergy/AdvReac Type Severity Reaction Status Date / Time Penicillins Allergy Mild rash Verified 09/01/21 08:00 Home Medications Medication Instructions Recorded Confirmed Type atorvastatin 10 mg tablet 10 mg PO DAILY 06/02/19 08/26/22 History losartan 25 mg tablet 12.5 mg PO DAILY 06/02/19 08/26/22 History aspirin 81 mg capsule 81 mg PO DAILY 08/18/21 08/26/22 History ciprofloxacin HCl 500 mg tablet 500 mg PO BID 08/26/22 08/26/22 History dicyclomine 10 mg capsule 5 mg PO TID PRN Abdominal Pain 08/26/22 08/26/22 History docusate sodium 100 mg capsule 100 mg PO DAILY 08/26/22 08/26/22 History polyethylene glycol 3350 17 gram 17 g PO DAILY 08/26/22 08/26/22 History oral powder packet sildenafil 50 mg tablet 50 mg PO DAILY PRN Sexual Activity 08/26/22 08/26/22 History travoprost 0.004 % eye drops 1 drp ophthalmic (eye) DAILY 08/26/22 08/26/22 History Patient History Medical History BPH loc w urin obs/LUTS Cervical myelopathy Cervical vertebral fusion CHI (closed head injury) Colon polyps Diverticulosis Glaucoma History of rectal abscess HLD (hyperlipidemia) Hypertension Intracerebral hemorrhage Mitral regurgitation Pressure injury of sacral region, stage 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 Tortuous colon Tubulovillous adenoma of colon Surgical History H/O colonoscopy H/O excision of lamina of cervical vertebra for decompression of spinal cord H/O mitral valve repair History of cholecystectomy History of esophagogastroduodenoscopy (EGD) History of incision and drainage Family History Mother Cancer Father Cancer Social History Smoking Status: Never smoker Hx Alcohol Use: No Hx Substance Use: No Preferred Language: Citizen Of [place] Visual Impairment: No Limitations Hearing Ability: Normal Beliefs That Will Affect Care: None marital status: Current Living Situation: Spouse current occupational status: employed Feels Safe at Home: Yes caffeine: Yes during the past year weight has: decreased > 10 lbs Do you think of yourself as: straight/heterosexual Gender Identity: Male Assistive Devices: Glasses Review of Systems Review of Systems: All systems reviewed & are unremarkable except as noted in HPI & below Physical Exam Constitutional: Thin, frail male in no acute distress Eyes: PERRL, conjunctivae normal, anicteric sclerae Neck: trachea midline Respiratory: normal respiratory effort, lungs clear to auscultation Cardiovascular: Rate/Rhythm: regular rate and regular rhythm Gastrointestinal (Abdomen): Inspection/Auscultation: abdomen normal to inspection; abdomen not distended and + abnormal bowel sounds (hypoactive) Skin: no rashes, warm and dry Results & Data ([facility]) Vital Signs (Past 12 Hours) Vital Signs Temp Pulse Pulse Resp BP BP Pulse Ox 08/26/22 12:30 73 18 114/66 97 08/26/22 12:00 66 14 97 08/26/22 12:00 113/63 08/26/22 11:30 74 14 113/64 97 08/26/22 11:00 71 14 97 08/26/22 11:00 113/64 08/26/22 10:30 73 22 97 08/26/22 10:00 71 16 97 08/26/22 10:00 114/61 08/26/22 09:30 71 16 96 08/26/22 09:00 78 14 93 08/26/22 09:00 123/73 08/26/22 08:30 69 12 96 08/26/22 09:31 36.8 C 78 14 123/73 93 08/26/22 08:00 73 16 97 08/26/22 08:00 128/68 08/26/22 07:30 88 13 95 08/26/22 07:00 70 14 97 08/26/22 07:00 116/65 08/26/22 06:30 71 14 97 08/26/22 06:00 72 16 97 08/26/22 06:00 122/67 08/26/22 05:51 74 14 96 08/26/22 06:30 97 08/26/22 05:30 77 18 126/70 98 08/26/22 03:38 36.8 C 84 18 121/84 98 O2 Del Method 08/26/22 12:30 08/26/22 12:00 08/26/22 12:00 08/26/22 11:30 08/26/22 11:00 08/26/22 11:00 08/26/22 10:30 08/26/22 10:00 08/26/22 10:00 08/26/22 09:30 08/26/22 09:00 08/26/22 09:00 08/26/22 08:30 08/26/22 09:31 08/26/22 08:00 08/26/22 08:00 08/26/22 07:30 08/26/22 07:00 08/26/22 07:00 08/26/22 06:30 08/26/22 06:00 08/26/22 06:00 08/26/22 05:51 08/26/22 06:30 Room Air 08/26/22 05:30 Room Air 08/26/22 03:38 Room Air Laboratory Results 08/26/22 08/26/22 08/26/22 Range/Units 08:01 05:26 04:00 WBC (4.8-10.8) K/ul RBC (4.63-6.08) M/uL Hgb (14.0-18.0) g/dl POC Hgb 12.6 L (14.0-18.0) g/dl Hct (40.1-51.0) % POC Hct 37 L (42-52) % MCV (80.0-100.0) fL MCH (25.0-34.0) pg MCHC (32.0-36.0) g/dL RDW Std Deviation (36.4-46.3) fL RDW Coeff of Rudi (11.5-14.5) % Plt Count (130-400) K/uL MPV (9.4-12.4) fL Immature Gran % (Auto) % Neut % (Auto) % Lymph % (Auto) % [place] % (Auto) % Eos % (Auto) % Baso % (Auto) % Neut # (Auto) (1.4-6.5) K/uL Lymph # (Auto) (1.2-3.4) K/uL [place] # (Auto) (0.24-0.82) K/uL Eos # (Auto) (0-0.50) K/uL Baso # (Auto) (0-0.2) K/uL Immature Gran # (Auto) (0.00-0.02) K/uL POC Sodium 134 L (135-144) mmol/L Sodium (136-145) mmol/L POC Potassium 4.0 (3.3-5.0) mmol/L Potassium (3.5-5.1) mmol/L POC Chloride 97 L (101-112) mmol/L Chloride (98-107) mmol/L Carbon Dioxide (21-32) mmol/L POC Total CO2 27 (24-31) mmol/L Anion Gap (3-11) POC Anion Gap 15.0 L (16-25) mmol/L POC BUN 18 (7-18) mg/dl BUN (6-23) mg/dl Creatinine (0.6-1.4) mg/dl POC Creatinine 0.6 (0.6-1.3) mg/dl Est Cr Clr Drug Dosing ml/min Est GFR ( Amer) ml/min Est GFR (Non-Af Amer) ml/min BUN/Creatinine Ratio (10-20) Glucose (70-99(Fasting)) mg/dl POC Glucose (other) 93 (70-99) mg/dl Calcium (8.5-10.1) mg/dl POC Ioniz Calcium Minerva 1.12 (1.12-1.32) mmol/l Total Bilirubin (0.2-1.0) mg/dl AST (13-39) U/L ALT (7-52) U/L Alkaline Phosphatase (34-104) U/L Total Protein (6.0-8.3) gm/dl Albumin (3.4-5.0) gm/dl Globulin (2.5-4.0) gm/dl Albumin/Globulin Ratio (0.9-2) Lipase (11-82) U/L Urine Color Dark Yellow Urine Appearance Clear (Clear) Urine pH 5.0 (4.5-7.5) Ur Specific [place] 1.022 (1.000-1.030) Urine Protein Negative (Negative) Urine Glucose (UA) Negative (Negative) Urine Ketones 2+ H (Negative) Urine Blood Negative (Negative) Urine Nitrite Negative (Negative) Urine Bilirubin Negative (Negative) Urine Urobilinogen Negative (Negative) Ur Leukocyte Esterase Negative (Negative) SARS-CoV-2, RNA, NAAT NEGATIVE (NEGATIVE) 08/26/22 08/26/22 Range/Units 03:50 03:50 WBC 9.05 (4.8-10.8) K/ul RBC 4.22 L (4.63-6.08) M/uL Hgb 14.3 (14.0-18.0) g/dl POC Hgb (14.0-18.0) g/dl Hct 39.8 L (40.1-51.0) % POC Hct (42-52) % MCV 94.3 (80.0-100.0) fL MCH 33.9 (25.0-34.0) pg MCHC 35.9 (32.0-36.0) g/dL RDW Std Deviation 42.9 (36.4-46.3) fL RDW Coeff of Rudi 12.6 (11.5-14.5) % Plt Count 159 (130-400) K/uL MPV 10.4 (9.4-12.4) fL Immature Gran % (Auto) 0.3 % Neut % (Auto) 76.9 % Lymph % (Auto) 13.9 % [place] % (Auto) 6.4 % Eos % (Auto) 2.2 % Baso % (Auto) 0.3 % Neut # (Auto) 6.95 H (1.4-6.5) K/uL Lymph # (Auto) 1.26 (1.2-3.4) K/uL [place] # (Auto) 0.58 (0.24-0.82) K/uL Eos # (Auto) 0.20 (0-0.50) K/uL Baso # (Auto) 0.03 (0-0.2) K/uL Immature Gran # (Auto) 0.03 H (0.00-0.02) K/uL POC Sodium (135-144) mmol/L Sodium 134 L (136-145) mmol/L POC Potassium (3.3-5.0) mmol/L Potassium 3.9 (3.5-5.1) mmol/L POC Chloride (101-112) mmol/L Chloride 99 (98-107) mmol/L Carbon Dioxide 28 (21-32) mmol/L POC Total CO2 (24-31) mmol/L Anion Gap 7 (3-11) POC Anion Gap (16-25) mmol/L POC BUN (7-18) mg/dl BUN 19 (6-23) mg/dl Creatinine 0.63 (0.6-1.4) mg/dl POC Creatinine (0.6-1.3) mg/dl Est Cr Clr Drug Dosing 96.3 ml/min Est GFR ( Amer) 112.5 ml/min Est GFR (Non-Af Amer) 97.1 ml/min BUN/Creatinine Ratio 30.2 H (10-20) Glucose 95 (70-99(Fasting)) mg/dl POC Glucose (other) (70-99) mg/dl Calcium 9.8 (8.5-10.1) mg/dl POC Ioniz Calcium Minerva (1.12-1.32) mmol/l Total Bilirubin 1.5 H (0.2-1.0) mg/dl AST 20 (13-39) U/L ALT 18 (7-52) U/L Alkaline Phosphatase 71 (34-104) U/L Total Protein 7.1 (6.0-8.3) gm/dl Albumin 4.6 (3.4-5.0) gm/dl Globulin 2.5 (2.5-4.0) gm/dl Albumin/Globulin Ratio 1.8 (0.9-2) Lipase 8 L (11-82) U/L Urine Color Urine Appearance (Clear) Urine pH (4.5-7.5) Ur Specific [place] (1.000-1.030) Urine Protein (Negative) Urine Glucose (UA) (Negative) Urine Ketones (Negative) Urine Blood (Negative) Urine Nitrite (Negative) Urine Bilirubin (Negative) Urine Urobilinogen (Negative) Ur Leukocyte Esterase (Negative) SARS-CoV-2, RNA, NAAT (NEGATIVE)
[2022-08-26] MEDS ORDERED: LOSARTAN POTASSIUM 25 MG TAB PO SCH (14:00)
[2022-08-26] MEDS: POLYETHYLENE (MIRALAX) 17 GM PACK PO SCH (14:44)
[2022-08-26] MEDS: ATORVASTATIN 10 MG TAB PO SCH (14:44)
[2022-08-26] MEDS: DOCUSATE SODIUM 100 MG CAP PO SCH (14:44)
[2022-08-26] MEDS: ASPIRIN 81 MG ECTAB PO SCH (14:44)
[2022-08-26] MEDS: CIPROFLOXACIN 500 MG TAB PO SCH ×2 (14:44→22:14)
[2022-08-26 15:08] LABS: BUN Creatinine Ratio 26.7 (10-20); Creatinine Clr Calc Pharmacy 101.1 ml/min; Est GFR (African American) 114.8 ml/min; Est GFR (Non-African American) 99.1 ml/min; Potassium 4.1 mmol/L (3.5-5.1)
--- NOTE | 2022-08-26 15:22 | Surgery Consultation ---
Date of Consultation August 26, 2022 Assessment & Plan (1) SBO (small bowel obstruction): Chronic PSBO, no previous imaging here for comparison. Exam benign. Keep NPO for tonight, can hold on NG for now as symptoms are improving and stomach is not significantly distended. Hopefully he will continue to improve and can have outpatient follow-up as planned. If not, would consider [place] out [place] [facility] Supervising Physician Co-Signing Physician Notes As per Lupillo mccarthy The patient this time feels a lot better than he has when he first came in not complaining and abdominal discomfort He has extensive work-up at [facility] regarding this abdominal pain that appears to be localized in the left lower quadrant not triggered for any foods that he eats or activity that he does At this time we will continue with nonoperative management and will follow the patient with medical service admission History of Present Illness Attending Physician: Romario Zuñiga MD History of Present Illness 72 y/o male [place] with [facility] [place], jejunal diverticulosis and small bowel stricture now with abdominal pain and dry heaves similar to in the past but lasting longer than usual. Symptoms usually resolve within a few hours but now continued overnight. Last episode was Aug 09. Feels better after medicated in ED. He has follow-up scheduled with colorectal surgery on Sep 19. Has had numerous endoscopies and capsule endoscopy x2. Last BM was yesterday, has some flatus. Previous abdominal surgery was lap coleen. Allergies Allergy/AdvReac Type Severity Reaction Status Date / Time Penicillins Allergy Mild rash Verified 09/01/21 08:00 Home Medications Medication Instructions Recorded Confirmed Type atorvastatin 10 mg tablet 10 mg PO DAILY 06/02/19 08/26/22 History losartan 25 mg tablet 12.5 mg PO DAILY 06/02/19 08/26/22 History aspirin 81 mg capsule 81 mg PO DAILY 08/18/21 08/26/22 History ciprofloxacin HCl 500 mg tablet 500 mg PO BID 08/26/22 08/26/22 History dicyclomine 10 mg capsule 5 mg PO TID PRN Abdominal Pain 08/26/22 08/26/22 History docusate sodium 100 mg capsule 100 mg PO DAILY 08/26/22 08/26/22 History polyethylene glycol 3350 17 gram 17 g PO DAILY 08/26/22 08/26/22 History oral powder packet sildenafil 50 mg tablet 50 mg PO DAILY PRN Sexual Activity 08/26/22 08/26/22 History travoprost 0.004 % eye drops 1 drp ophthalmic (eye) DAILY 08/26/22 08/26/22 History Patient History Medical History BPH loc w urin obs/LUTS Cervical myelopathy Cervical vertebral fusion CHI (closed head injury) Colon polyps Diverticulosis Glaucoma History of rectal abscess HLD (hyperlipidemia) Hypertension Intracerebral hemorrhage Mitral regurgitation Pressure injury of sacral region, stage 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 Tortuous colon Tubulovillous adenoma of colon Surgical History H/O colonoscopy H/O excision of lamina of cervical vertebra for decompression of spinal cord H/O mitral valve repair History of cholecystectomy History of esophagogastroduodenoscopy (EGD) History of incision and drainage Family History Mother Cancer Father Cancer Social History Smoking Status: Never smoker Hx Alcohol Use: No Hx Substance Use: No Preferred Language: [place] Visual Impairment: No Limitations Hearing Ability: Normal Beliefs That Will Affect Care: None marital status: Current Living Situation: Spouse current occupational status: employed Feels Safe at Home: Yes caffeine: Yes during the past year weight has: decreased > 10 lbs Do you think of yourself as: straight/heterosexual Gender Identity: Male Assistive Devices: Glasses Review of Systems Constitutional: no fever and no chills Gastrointestinal: + abdominal pain, + belching and + nausea; no bloating and no vomiting Physical Exam Constitutional: WD/WN, vitals as above Respiratory: normal respiratory effort, lungs clear to auscultation Cardiovascular: RRR, no murmur, no edema Gastrointestinal (Abdomen): Inspection/Auscultation: + abdominal surgical scar (laparoscopy); abdomen not distended Percussion/Palpation: abdomen soft; abdomen nontender Skin: no rashes, warm and dry Results & Data ([facility]) Vital Signs (Past 12 Hours) Vital Signs Temp Pulse Pulse Resp BP BP Pulse Ox 08/26/22 14:57 82 14 131/71 98 08/26/22 14:00 77 15 97 08/26/22 14:00 131/71 08/26/22 13:30 73 24 98 08/26/22 13:00 71 16 96 08/26/22 13:00 128/74 08/26/22 12:30 73 18 114/66 97 08/26/22 12:00 66 14 97 08/26/22 12:00 113/63 08/26/22 11:30 74 14 113/64 97 08/26/22 11:00 71 14 97 08/26/22 11:00 113/64 08/26/22 10:30 73 22 97 08/26/22 10:00 71 16 97 08/26/22 10:00 114/61 08/26/22 09:30 71 16 96 08/26/22 09:00 78 14 93 08/26/22 09:00 123/73 08/26/22 08:30 69 12 96 08/26/22 09:31 36.8 C 78 14 123/73 93 08/26/22 08:00 73 16 97 08/26/22 08:00 128/68 08/26/22 07:30 88 13 95 08/26/22 07:00 70 14 97 08/26/22 07:00 116/65 08/26/22 06:30 71 14 97 08/26/22 06:00 72 16 97 08/26/22 06:00 122/67 08/26/22 05:51 74 14 96 08/26/22 06:30 97 08/26/22 05:30 77 18 126/70 98 08/26/22 03:38 36.8 C 84 18 121/84 98 O2 Del Method 08/26/22 14:57 Room Air 08/26/22 14:00 08/26/22 14:00 08/26/22 13:30 08/26/22 13:00 08/26/22 13:00 08/26/22 12:30 08/26/22 12:00 08/26/22 12:00 08/26/22 11:30 08/26/22 11:00 08/26/22 11:00 08/26/22 10:30 08/26/22 10:00 08/26/22 10:00 08/26/22 09:30 08/26/22 09:00 08/26/22 09:00 08/26/22 08:30 08/26/22 09:31 08/26/22 08:00 08/26/22 08:00 08/26/22 07:30 08/26/22 07:00 08/26/22 07:00 08/26/22 06:30 08/26/22 06:00 08/26/22 06:00 08/26/22 05:51 08/26/22 06:30 Room Air 08/26/22 05:30 Room Air 08/26/22 03:38 Room Air PG Care Time/CCT Total # of Minutes Spent Total Time Spent with Patient: Total time spent is greater than 50% in coordination of care (as documented) at patient's floor/unit and/or counseling patient: Coding Level of Care Code 49193 Initial Inpt Care Lvl 1 Diagnoses SBO (small bowel obstruction) K56.609
[2022-08-26] MEDS: TRAVOPROST Z 0.004% OPH SOLN 2.5 ML BTL OPB SCH (15:25)
--- NOTE | 2022-08-26 17:19 | Ultrasound Report ---
US renal/blad retro comp CLINICAL HISTORY: 12mm renal neoplasm TECHNIQUE: Multiple sonographic real-time images of the kidneys and bladder were obtained. COMPARISON: Comparison is made to CT abdomen pelvis 08/26/2022 FINDINGS: The right kidney measures 9.4 cm in length, and the left kidney measures 11.8 cm in length. The right kidney is normal in size, contour, cortical thickness, and echogenicity. No hydronephrosis is identified. No renal lesion is identified. No perinephric fluid collection is seen. The left kidney is normal in size, contour, cortical thickness and echogenicity. No hydronephrosis i s identified. A dominant cyst measures 3.1 cm with a mural nodule and septation. Partial visualizati on of a smaller cystic lesion corresponding to hyperdense lesion on CT performed same day. No perine phric fluid collection is seen. The bladder is underdistended limiting visualization. Possible wall thickening. IMPRESSION: 1. A 12 mm exophytic lesion in the left kidney represents a cyst rather than a solid nodule. 2. A mural nodule and septation are noted in the left superior pole cyst. No nodular enhancement was seen on CT. ACT 112: Negative or not required by law. Electronically signed by: Magdaleno Chávez M.D. 08/26/2022 5:18 PM
--- NOTE | 2022-08-27 05:51 | Surgery Progress Note ---
Date of Service August 27, 2022 Assessment & Plan (1) Small bowel obstruction: Plan: Patient has been admitted on the hospitalist service. Recommend proceeding as follows: Consideration be given to advancing diet as he has had return of his bowel function. Would recommend beginning with clear liquids. Continue IV fluids until oral intake is adequate Admission and Anticipated Discharge Date Admission Date: August 26, 2022 Supervising Physician Co-Signing Physician Notes As per En Larsen physician physician's assistant Patient is started on clear liquids for breakfast Subjective Patient is resting comfortably in bed. He notes that he feels improved since arrival to the hospital. He says that he has had a bowel movement and is passing flatus since admission. He denies any nausea or vomiting. Physical Exam Gastrointestinal (Abdomen): Abdomen is soft, nondistended, nontender to palpation. Results & Data ([facility]) Vital Signs (Past 12 Hours) Vital Signs Temp Pulse Resp BP Pulse Ox O2 Del Method 08/26/22 22:06 36.9 C 74 14 118/71 95 Room Air 08/26/22 22:04 37.1 C 74 14 121/71 95 Room Air 08/26/22 17:58 37.1 C 81 16 114/71 97 Room Air PG Care Time/CCT Total # of Minutes Spent Total Time Spent with Patient: Total time spent is greater than 50% in coordination of care (as documented) at patient's floor/unit and/or counseling patient: Coding Level of Care Code 19117 Subseq Hosp Care Lvl 1 Diagnoses Small bowel obstruction K56.609
[2022-08-27 07:10] LABS: BUN Creatinine Ratio 34.3 (10-20); Calcium 8.6 mg/dl (8.5-10.1); Creatinine Clr Calc Pharmacy 86.9 ml/min; Est GFR (African American) 109.7 ml/min; Est GFR (Non-African American) 94.7 ml/min
[2022-08-27 07:46] LABS: Hematocrit (blood only) 33.5 % (40.1-51.0); Mean Corpuscular Hemoglobin 32.9 pg (25.0-34.0); Mean Corpuscular Hgb Conc 35.8 g/dL (32.0-36.0); Mean Corpuscular Volume 91.8 fL (80.0-100.0); Mean Platelet Volume 10.5 fL (9.4-12.4); Platelet Count 138 K/uL (130-400); RDW Coefficient of Variation 12.2 % (11.5-14.5); RDW Standard Deviation 41.3 fL (36.4-46.3); Red Blood Count 3.65 M/uL (4.63-6.08); White Blood Count 6.14 K/ul (4.8-10.8)
[2022-08-27] MEDS: ASPIRIN 81 MG ECTAB PO SCH (10:34)
[2022-08-27] MEDS: DOCUSATE SODIUM 100 MG CAP PO SCH (10:34)
[2022-08-27] MEDS: POLYETHYLENE (MIRALAX) 17 GM PACK PO SCH (10:34)
[2022-08-27] MEDS: TRAVOPROST Z 0.004% OPH SOLN 2.5 ML BTL OPB SCH (10:34)
[2022-08-27] MEDS: ATORVASTATIN 10 MG TAB PO SCH (10:34)
[2022-08-27] MEDS: LACTATED RINGER'S 1,000 ML IV SCH ×2 (10:35→21:11)
[2022-08-27] MEDS: CIPROFLOXACIN 500 MG TAB PO SCH ×2 (10:35→21:08)
--- NOTE | 2022-08-27 15:37 | Hospitalist Progress Note ---
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 There is a focal transition point within the left deep pelvis within a distal bowel loop on image 341 with the distal ileal loops being decompressed. Therefore, this is consistent with a small bowel obstruction. - Recent studies from outpatient [facility] reviewed Colonoscopy 02/04/2021 with normal terminal ileum, multiple small mouthed diverticula in the sigmoid, nonbleeding internal hemorrhoids on retroflexion. Upper device assisted enteroscopy on 02/04/2021 with irregular Z-line, mild gastritis, normal duodenum, severe huge chapman jejunal diverticulosis, no mass, lesions or polyp Upper EUS for suspected choledocholithiasis and abdominal pain, normal esophagus, stomach, duodenal bulb and second portion of the duodenum, no significant pathology in the ampulla or common bile duct, history of cholecystectomy, pancreatic parenchymal abnormalities consisting with hyperechoic strands and hyperechoic foci were noted in the entire pancreas, celiac trunk, endosonographically normal - Previously done studies includes urea breath test, stool antigens -- negative - WBC 9K - T bili 1.5, other LFTs within normal ranges - Stool cultures - No hx of IBS, Crohns disease, UC - Denies alcohol use, previous chewing tobacco use but quit 20 years ago. - Negative NSAID use, kidney today with normal function, ok to use toradol for pain prn today, tramdol if needed prn - Currently on cipro 500 mg BID since May per colorectal surgeon and GI - will continue - Cont LR at 75 ml/hr for hydration while NPO - No nausea, so no needs for NGT at this time - antiemetics ordered 08/27 Positive BMs, abdominal pain, nausea resolved Clear liquids for now Monitor closely General surgery consulted (3) HLD (hyperlipidemia): Plan: - Cont statin therapy (4) Hypertension: Plan: - Monitor BP, currently in 120s/80s, at home on losartan 12.5 mg daily DVT ppx: - teds, scds CODE: Full code Dispo: From home, possible discharge tomorrow when cleared by general surgery (5) Renal neoplasm: Admission and Anticipated Discharge Date Admission Date: August 26, 2022 Subjective Follow-up for small bowel obstruction, etc. Seen sitting up in bed, having lunch with clear liquid diet Comfortable, not distressed States he feels better today compared to yesterday No abdominal pain, nausea vomiting Positive BMs this morning no chest pain, dyspnea, palpitations, dizziness Tolerating clear liquid diet so far No other symptom Review of Systems Review of Systems: all noted and negative except for above Physical Exam Physical Exam: General- oriented x 3, not in distress, speaks in sentences with no effort or accessory muscle use Eyes- anicteric Neck- no JVD Lungs- clear breath sounds bilaterally, no rales/wheezes Heart- normal rate, regular rhythm; no murmurs Abdomen- normal bowel sounds, nondistended, soft, nontender Extremities- no pretibial edema, no calf tenderness Neuro- alert, oriented x 3; no gross focal neurologic deficits Skin- warm & dry Results & Data Results & Data ([facility]) Vital Signs (Past 12 Hours) Vital Signs Temp Pulse Resp BP Pulse Ox O2 Del Method 08/27/22 07:45 37.0 C 70 18 112/62 97 Room Air all noted and reviewed including below
--- NOTE | 2022-08-28 05:04 | Surgery Progress Note ---
Date of Service August 28, 2022 Assessment & Plan (1) Small bowel obstruction: Plan: Patient has been admitted on the hospitalist service. We recommend proceeding as follows: Consideration be given to advancing diet as he is tolerating clear liquids and if this is tolerated he can be discharged home thereafter Continue IV fluids until certain oral intake will be adequate Admission and Anticipated Discharge Date Admission Date: August 26, 2022 Supervising Physician Co-Signing Physician Notes As per En Larsen physician communication assistant will increase diet and if tolerates patient can be discharged from our point of view Subjective Patient is resting comfortably in bed. He denies any nausea or vomiting. He notes that his bowels move several times yesterday. He denies any nausea or vomiting. He denies significant abdominal pain. He is tolerating clear liquids without difficulty. Physical Exam Gastrointestinal (Abdomen): Abdomen is soft, nondistended, nontender to palpation. Bowel sounds are present. Results & Data ([facility]) Vital Signs (Past 12 Hours) Vital Signs Temp Pulse Resp BP Pulse Ox O2 Del Method 08/27/22 21:46 36.9 C 60 16 116/67 96 Room Air PG Care Time/CCT Total # of Minutes Spent Total Time Spent with Patient: Total time spent is greater than 50% in coordination of care (as documented) at patient's floor/unit and/or counseling patient: Coding Level of Care Code 91235 Subseq Hosp Care Lvl 1 Diagnoses Small bowel obstruction K56.609
[2022-08-28] MEDS: TRAVOPROST Z 0.004% OPH SOLN 2.5 ML BTL OPB SCH (08:35)
[2022-08-28] MEDS: ATORVASTATIN 10 MG TAB PO SCH (08:36)
[2022-08-28] MEDS: POLYETHYLENE (MIRALAX) 17 GM PACK PO SCH (08:36)
[2022-08-28] MEDS: CIPROFLOXACIN 500 MG TAB PO SCH ×2 (08:36→20:30)
[2022-08-28] MEDS: DOCUSATE SODIUM 100 MG CAP PO SCH (08:36)
[2022-08-28] MEDS: ASPIRIN 81 MG ECTAB PO SCH (08:36)
--- NOTE | 2022-08-28 10:55 | XRay Report ---
KUB CLINICAL HISTORY: Follow-up small bowel obstruction. FINDINGS: 2 AP supine abdominal radiographs are correlated with abdominal CT dated 08/26/2022. Cholec ystectomy clips are seen in the right upper quadrant. Gaseous distention of the small bowel loops ind icates persistent small bowel obstruction. Small bowel loops measure up to 3.6 cm in diameter. There is a small amount of gas and stool within the colon. No evidence of intraperitoneal free air is seen on these supine images. There are no abnormal abdominal calcifications. Phleboliths are noted in the pelvis. The skeletal structures are osteopenic and appear intact. There is lumbosacral spondylosis. T he patient is status post midline sternotomy and cardiac valve surgery. Epicardial pacing leads are i n place. The heart is enlarged. IMPRESSION: Persistent small bowel obstruction. Electronically signed by: John Palomo M.D. 08/28/2022 10:54 AM
--- NOTE | 2022-08-28 16:51 | Hospitalist Progress Note ---
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 There is a focal transition point within the left deep pelvis within a distal bowel loop on image 341 with the distal ileal loops being decompressed. Therefore, this is consistent with a small bowel obstruction. - Recent studies from outpatient [facility] reviewed Colonoscopy 02/04/2021 with normal terminal ileum, multiple small mouthed diverticula in the sigmoid, nonbleeding internal hemorrhoids on retroflexion. Upper device assisted enteroscopy on 02/04/2021 with irregular Z-line, mild gastritis, normal duodenum, severe huge chapman jejunal diverticulosis, no mass, lesions or polyp Upper EUS for suspected choledocholithiasis and abdominal pain, normal esophagus, stomach, duodenal bulb and second portion of the duodenum, no significant pathology in the ampulla or common bile duct, history of cholecystectomy, pancreatic parenchymal abnormalities consisting with hyperechoic strands and hyperechoic foci were noted in the entire pancreas, celiac trunk, endosonographically normal - Previously done studies includes urea breath test, stool antigens -- negative - WBC 9K - T bili 1.5, other LFTs within normal ranges - Stool cultures - No hx of IBS, Crohns disease, UC - Denies alcohol use, previous chewing tobacco use but quit 20 years ago. - Negative NSAID use, kidney today with normal function, ok to use toradol for pain prn today, tramdol if needed prn - Currently on cipro 500 mg BID since May per colorectal surgeon and GI - will continue - Cont LR at 75 ml/hr for hydration while NPO - No nausea, so no needs for NGT at this time - antiemetics ordered 08/27 Positive BMs, abdominal pain, nausea resolved Clear liquids for now Monitor closely General surgery consulted 08/28 Repeat KUB: Persistent small bowel obstruction pattern Patient however clinically improving, tolerating soft diet positive BMs Discussed with Dr. Gomez, recommend to continue monitoring patient for now while on soft diet We will monitor closely Reevaluate in the morning (3) HLD (hyperlipidemia): Plan: - Cont statin therapy (4) Hypertension: Plan: - Monitor BP, currently in 120s/80s, at home on losartan 12.5 mg daily DVT ppx: - teds, scds CODE: Full code Dispo: Anticipate discharge to home when cleared by general surgeon (5) Renal neoplasm: Admission and Anticipated Discharge Date Admission Date: August 26, 2022 Subjective Follow-up for small bowel obstruction, etc. Seen resting in bed, comfortable, in good spirits Tolerating soft diet so far No abdominal pain, nausea vomiting No fevers or chills no chest pain, dyspnea, palpitations, dizziness No other symptoms Review of Systems Review of Systems: all noted and negative except for above Physical Exam Physical Exam: General- oriented x 3, not in distress, speaks in sentences with no effort or accessory muscle use Eyes- anicteric Neck- no JVD Lungs- clear breath sounds bilaterally, no crackles or wheezing Heart- normal rate, regular rhythm; no murmurs Abdomen- normal bowel sounds, nondistended, soft, nontender Extremities- no pretibial edema, no calf tenderness Neuro- alert, oriented x 3; no gross focal neurologic deficits Skin- warm & dry Results & Data Results & Data ([facility]) Vital Signs (Past 12 Hours) Vital Signs Temp Pulse Resp BP Pulse Ox O2 Del Method 08/28/22 15:30 36.8 C 66 18 116/66 99 Room Air 08/28/22 07:26 36.6 C 78 18 125/69 100 Room Air all noted and reviewed including below
[2022-08-29] MEDS: CIPROFLOXACIN 500 MG TAB PO SCH (09:12)
[2022-08-29] MEDS: ASPIRIN 81 MG ECTAB PO SCH (09:13)
[2022-08-29] MEDS: ATORVASTATIN 10 MG TAB PO SCH (09:13)
[2022-08-29] MEDS: TRAVOPROST Z 0.004% OPH SOLN 2.5 ML BTL OPB SCH (09:14)
[2022-08-29] MEDS: DOCUSATE SODIUM 100 MG CAP PO SCH (09:18)
[2022-08-29] MEDS: POLYETHYLENE (MIRALAX) 17 GM PACK PO SCH (09:18)
--- NOTE | 2022-08-29 11:37 | Discharge Summary ---
Discharge Summary Date of Service August 29, 2022 Notes For Next Care Provider Patient small bowel obstruction resolved with conservative management Patient has an upcoming appointment with colorectal surgeon Dr. Ashlie Lambert at [facility] for evaluation of jejunal diverticulitis, possible small bowel resection Medication Changes From Visit None Admission HPI Per Admitting Provider This is a 72-year-old male with PMHx of HTN, HLD, jejunal diverticulosis, history of subdural hematoma in 2015, history of intercerebral hemorrhage with out residual deficit 2018, BPH without LUTS. Previously, the patient has been following with GI as an outpatient for abdominal pain and weight loss which would be began around March 2020. During his visit on 03/23/22, he reported attacks of abdominal pain, bloating, reflux 2 times per week lasting a few hours, but then sometimes has no symptoms for 2 weeks. Patient has previously reported that laying down helps as well as laying on the left side, and that symptoms would subside within a small amount of time. No constipation, and is having regular soft bowel movements daily. Since the beginning of that 2 year timeframe he has lost about 30-40 lbs. His lowest weight was about 130 lbs, and currently is back up to about 140 lbs. Pt was started on a 10 day course of Cipro 500 mg twice daily to assist specifically with weight gain and on dicyclomine for abdominal cramping, but reports this medication did not seem to improve symptoms. He is also status post cholecystectomy in February 2021. He recently saw colorectal surgeon, Dr. Lambert at [facility] on 05/30/2022 and was restarted on ciprofloxacin 500 mg twice a day for 3 months for weight gain again. He had seen her again on 07/25/22 and at that point her plan was to continue antibiotics and was considering diagnostic laparoscopy and small bowel resection of worst appearing disease. Today the patient reports that his pain was different, starting yesterday and was unable to be relieved by lying down or lying on his left side. The pain was also constant in nature and unable to be improved with anything. He did not try any OTC medications, Tylenol for pain. He also reports that he has had no appetite recently and who is present at bedside is concerned and continues to try to get him to eat however he just feels that he cannot. He denies any nausea, vomiting. Last bowel movement was 2 days ago. Stated that occasionally he passes mucous with bowel movements. Reports that he is passing small amounts of flatus and belching today. He denies any abdominal distention currently. Patient denies any fevers, chills or sweats. He denies any known swollen lymph nodes or night sweats. 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 His only other concern is right hip pain, which he feels whenever he is up on his feet for extended periods of time. Sometimes his hands feel arthritic as well. He does not take any medication for this. Admission Exam Per Admitting Provider Physical Exam: General: awake, alert, no apparent distress, thin, BMI 20.4 Head: Normocephalic, atraumatic ENT: PERRL, EOMI, no pharyngeal exudate, mucous membranes moist Chest: Clear to auscultation, on room air, no adventitious breath sounds Cardiac: Regular rate and rhythm, no murmur, no JVD, normal peripheral pulses, good capillary refill Abdominal: Hypoactive bowel sounds x 4 quadrants,no high pitched tinkling sounds, muscular abdomen, nondistended, minimally tender to palpation, no rebound or guarding Extremities: Normal inspection, no peripheral edema or erythema, calfs nontender to palpation Psych: Normal mood and affect Neuro: AAO x 3, strength intact bilaterally and rated 5/5, no motor deficits, speech is clear, no peripheral sensory deficits Principal Dx & Hospital Course #1 = Principal Diagnosis (1) SBO (small bowel obstruction): (2) 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 There is a focal transition point within the left deep pelvis within a distal bowel loop on image 341 with the distal ileal loops being decompressed. Therefore, this is consistent with a small bowel obstruction. - Recent studies from outpatient [facility] reviewed Colonoscopy 02/04/2021 with normal terminal ileum, multiple small mouthed diverticula in the sigmoid, nonbleeding internal hemorrhoids on retroflexion. Upper device assisted enteroscopy on 02/04/2021 with irregular Z-line, mild gastritis, normal duodenum, severe huge chapman jejunal diverticulosis, no mass, lesions or polyp Upper EUS for suspected choledocholithiasis and abdominal pain, normal esophagus, stomach, duodenal bulb and second portion of the duodenum, no significant pathology in the ampulla or common bile duct, history of chol ecystectomy, pancreatic parenchymal abnormalities consisting with hyperechoic strands and hyperechoic foci were noted in the entire pancreas, celiac trunk, endosonographically normal -Follows with GI, also with [facility] colorectal surgery Dr. Ashlie Lambert for SIBO, jejunal diverticulosis Possible small bowel resection being contemplated, upcoming appointment September 19, 2020 Patient seen by general surgery service Manage conservatively with bowel rest, IV fluids Fortunately patient clinically improved significantly, positive bowel movements, abdominal pain resolved, tolerating soft diet Repeat KUB showing persistent small bowel obstruction pattern but patient clinically improving as mentioned above Cleared for discharge by general surgery Advised low fiber diet for a few days Follow-up with PCP in 1 week Follow-up with colorectal surgery [facility] as scheduled (3) HLD (hyperlipidemia): - Cont statin therapy (4) Hypertension: - on losartan 12.5 mg daily (5) Renal lesion: Exophytic lesion at the left kidney found on CT abdomen pelvis incidentally Renal ultrasound recommended Renal ultrasound: 1. A 12 mm exophytic lesion in the left kidney represents a cyst rather than a solid nodule. 2. A mural nodule and septation are noted in the left superior pole cyst. No nodular enhancement was seen on CT. Please refer to full report in the Ordered Studies section Plan Discharge to home Follow-up with PCP in 1 week Follow-up with colorectal surgery in [place] September, Discharge Exam General: awake, alert, no apparent distress, thin, BMI 20.4 Head: Normocephalic, atraumatic ENT: PERRL, EOMI, no pharyngeal exudate, mucous membranes moist Chest: Clear to auscultation, on room air, no adventitious breath sounds Cardiac: Regular rate and rhythm, no murmur, no JVD, normal peripheral pulses, good capillary refill Abdominal: Hypoactive bowel sounds x 4 quadrants,no high pitched tinkling sounds, muscular abdomen, nondistended, minimally tender to palpation, no rebound or guarding Extremities: Normal inspection, no peripheral edema or erythema, calfs nontender to palpation Psych: Normal mood and affect Neuro: AAO x 3, strength intact bilaterally and rated 5/5, no motor deficits, speech is clear, no peripheral sensory deficits Updated Medication List Medication Instructions Recorded Confirmed Type atorvastatin 10 mg tablet 10 mg PO DAILY 06/02/19 08/26/22 History losartan 25 mg tablet 12.5 mg PO DAILY 06/02/19 08/26/22 History aspirin 81 mg capsule 81 mg PO DAILY 08/18/21 08/26/22 History ciprofloxacin HCl 500 mg tablet 500 mg PO BID 08/26/22 08/26/22 History dicyclomine 10 mg capsule 5 mg PO TID PRN Abdominal Pain 08/26/22 08/26/22 History docusate sodium 100 mg capsule 100 mg PO DAILY 08/26/22 08/26/22 History polyethylene glycol 3350 17 gram 17 g PO DAILY 08/26/22 08/26/22 History oral powder packet sildenafil 50 mg tablet 50 mg PO DAILY PRN Sexual Activity 08/26/22 08/26/22 History travoprost 0.004 % eye drops 1 drp ophthalmic (eye) DAILY 08/26/22 08/26/22 History Hospital Stay Data Consultations 08/26/22 07:38 ED Decision to Admit Stat 08/26/22 07:39 Consult General Surgery Routine 08/26/22 13:23 Consult Gastroenterology Routine Diagnostic Imagining Performed Abdomen/Pelvis CT 08/26/22 05:[address] WITH IV CONTRAST CT DOSE: 269.25 mGy.cm HISTORY: Generalized abdominal pain. Assess for small bowel obstruction. TECHNIQUE: Multiaxial CT images of the abdomen and pelvis were performed following the use of intravenous contrast. A dose lowering technique was utilized adhering to the principles of ALARA. COMPARISON STUDY: None. FINDINGS: The lung bases are clear. No pneumoperitoneum. No pneumatosis. No suspicious lytic or blastic osseous lesions. Mild body wall edema. Small amount of ascites. The bladder appears unremarkable. Moderate well-formed stool seen throughout the colon. Normal appendix. Multiple dilated gas and fluid-filled loops of proximal mid small bowel seen throughout the abdomen. There is a focal transition point within the left deep pelvis within a distal bowel loop on image 341 with the distal ileal loops being decompressed. Therefore, this is consistent with a small bowel obstruction. Prior cholecystectomy. The liver, pancreas, adrenal glands unremarkable. There are few punctate calcified granulomas within the spleen. A few bilateral renal hypodense lesions which favor cysts. No hydronephrosis. There is an indeterminate exophytic 12 mm lesion within the left kidney on image 175. This favors a hyperdense cyst but could represent a solid renal lesion. The main portal vein is patent. Dilated common bile duct is likely due to the postcholecystectomy state. No retroperitoneal lymphadenopathy. Mild calcified plaque within the normal caliber abdominal aorta. IMPRESSION: 1. Small bowel obstruction with the transition point located within the left deep pelvis as described above. 2. Small amount of ascites. 3. A 12 mm exophytic indeterminate lesion within the left kidney. This favors a hyperdense cyst but could represent a solid renal mass. Follow-up nonemergent renal ultrasound recommended for further evaluation. 4. Normal appendix. 5. Additional findings as described above. ACT 112: Negative or not required by law. Electronically signed by: Troy Mcdaniels M.D. 08/26/2022 7:59 AM Renal Ultrasound 08/26/22 12:16 US renal/blad retro comp CLINICAL HISTORY: 12mm renal neoplasm TECHNIQUE: Multiple sonographic real-time images of the kidneys and bladder were obtained. COMPARISON: Comparison is made to CT abdomen pelvis 08/26/2022 FINDINGS: The right kidney measures 9.4 cm in length, and the left kidney measures 11.8 cm in length. The right kidney is normal in size, contour, cortical thickness, and echogenicity. No hydronephrosis is identified. No renal lesion is identified. No perinephric fluid collection is seen. The left kidney is normal in size, contour, cortical thickness and echogenicity. No hydronephrosis is identified. A dominant cyst measures 3.1 cm with a mural nodule and septation. Partial visualization of a smaller cystic lesion corresponding to hyperdense lesion on CT performed same day. No perinephric fluid collection is seen. The bladder is underdistended limiting visualization. Possible wall thickening. IMPRESSION: 1. A 12 mm exophytic lesion in the left kidney represents a cyst rather than a solid nodule. 2. A mural nodule and septation are noted in the left superior pole cyst. No nodular enhancement was seen on CT. ACT 112: Negative or not required by law. Electronically signed by: Magdaleno Chávez M.D. 08/26/2022 5:18 PM KUB X-Ray 08/28/22 10:27 KUB CLINICAL HISTORY: Follow-up small bowel obstruction. FINDINGS: 2 AP supine abdominal radiographs are correlated with abdominal CT dated 08/26/2022. Cholecystectomy clips are seen in the right upper quadrant. Gaseous distention of the small bowel loops indicates persistent small bowel obstruction. Small bowel loops measure up to 3.6 cm in diameter. There is a sma ll amount of gas and stool within the colon. No evidence of intraperitoneal free air is seen on these supine images. There are no abnormal abdominal calcifications. Phleboliths are noted in the pelvis. The skeletal structures are osteopenic and appear intact. There is lumbosacral spondylosis. The patient is status post midline sternotomy and cardiac valve surgery. Epicardial pacing leads are in place. The heart is enlarged. IMPRESSION: Persistent small bowel obstruction. Electronically signed by: John Palomo M.D. 08/28/2022 10:54 AM Pending Results Patient Have Any Pending Studies at Discharge: Yes Discharge Instructions Given to Patient (Per Discharging Provider) Please continue your usual medication regimen including MiraLAX and docusate. Low fiber diet for the next 3 to 5 days. Drink plenty of fluids. PLEASE CALL YOUR PRIMARY CARE PHYSICIAN OR RETURN TO THE ER IF WITH WORSENING OF SYMPTOMS, INCLUDING Worsening abdominal pain, nausea vomiting, fevers or chills, etc. FOLLOW UP WITH PRIMARY CARE PHYSICIAN OUTLINED ABOVE. Follow-up with [facility] colorectal surgeon Dr. Lambert. Total Time Total Time Spent Total Time Spent (In Minutes): >30 minutes
== END 2022-08-29 12:09 | disposition home or self-care (01) | DRG 390 ==
LOC: ED 03:35 → EDINP 07:38 → 3N 17:50

== ENCOUNTER 2023-08-23 10:08 | Inpatient (IN) ==
[2023-08-23] MEDS ORDERED: METOPROLOL TARTRATE 1 MG/ML VIAL IV STA (10:39)
[2023-08-23] MEDS ORDERED: SODIUM CHLORIDE 0.9% 500 ML IV SCH (10:45)
--- NOTE | 2023-08-23 10:56 | Emergency Department Note ---
Impression & Plan Atrial fibrillation with rapid ventricular response, Cough, Headache, COVID-19, Weakness ED Provider Note Provider: Ismael Worthington MD DATE OF SERVICE: 08/23/2023 CHIEF COMPLAINT: Weakness, cough HISTORY OF PRESENT ILLNESS: Patient is a 73-year-old gentleman history of SBO, hypertension, and A-fib on Eliquis follows with [facility] cardiology referred here from the primary office today with illness starting 4 days ago on Monday. Cough maybe a little shortness of breath with weakness. Generalized myalgias. Some congestion. Pending COVID test at this time. Denies leg swelling. Little bit pain in the neck and shoulders and the bit of headache at times. Denies any trauma or falls. States compliance to medication but and he is home medication yet today. Is normally on Eliquis. Reports feeling quite weak and found to be in A-fib at the office and sent here for further evaluation. Denies abdominal pain or significant nausea or vomiting. Denies chest pain but again some pain in the neck and shoulders. Has been present for several days. PAST MEDICAL HISTORY: As noted above MEDICATIONS: Reviewed home medication SOCIAL HISTORY: PHYSICAL EXAM: GENERAL: alert and oriented in no acute distress on stretcher Head: normocephalic and atraumatic EYES: No injection, discharge or icterus. NECK: Trachea midline. ENT: Mucous membranes pink and moist. LUNGS: Airway patent. No retractions. Breath sounds clear with good air entry bilaterally. HEART: Tachycardic irregular regular rate and rhythm. ABDOMEN: Soft and non-tender, without guarding or rebound. SKIN: Acyanotic, warm, dry, without rashes EXTREMITIES: Without swelling, tenderness or deformity NEUROLOGICAL: No focal deficits. No aphasia. No facial droop or slurred speech. Ambulatory. EK bpm atrial fibrillation with rapid ventricular response. No acute ST segment elevation with inferior T wave inversions and incomplete right bundle branch block. QTc 406. CONTINUOUS CARDIAC MONITORING: was ordered and showed a heart rate of 70s-140s bpm in A-fib Patient's laboratory studies and imaging reviewed. Differential includes Infection, dehydration, metabolic abnormality, hypo/hyperglycemia, electrolyte disturbance, anemia, hypoxia, cardiac sources, intracerebral event, toxicologic, neurologic, as well as other pathologies. IMPRESSION/MEDICAL DECISION MAKING: Patient appears to be in rapid A-fib likely contributing to his symptoms. Reports a bit of pain in the neck and shoulders as well as a bit of a headache. Unclear if this is all from infectious etiology or possibly a mimic of demand ischemia given his tachycardia. Normally on Eliquis. Did not take morning meds including metoprolol. Given IV dose of metoprolol. Does not appear fluid overloaded. Benign abdomen otherwise. Respiratory viral panel sent. Electrolytes and culture sent. Patient responded well to 1 IV dose of metoprolol here. Transiently on oxygen but quickly weaned off here. Generalized weakness. Troponin minimally elevated likely demand in setting of rapid A-fib. Believe COVID-19 a test positive for his causing exacerbation of his A-fib and the majority of his other symptoms. Patient does have a mild leukocytosis of 12.9 but no clear evidence of pneumonia on the x-ray. Electrolytes without severe abnormality or signs of significant kidney dysfunction with a sodium noted however of 131. Did receive some IV fluid hydration. Respiratory viral panel negative other than COVID. Head CT co mpleted given his report of headache and use of anticoagulation history of head bleed which was reassuringly reported as normal. Given his generalized weakness with COVID for which he has been vaccinated before as well as elevated troponin recommend continued observation. Patient in agreement. Hospitalist contacted. Given a dose of Tylenol here to help with headache myalgias. DIAGNOSIS: Rapid A-fib, weakness, COVID-19, cough, headache DISPOSITION: Hospitalist will evaluate Patient was agreeable with this plan. 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 Tortuous colon Tubulovillous adenoma of colon Surgical History H/O colonoscopy H/O excision of lamina of cervical vertebra for decompression of spinal cord H/O mitral valve repair History of cholecystectomy History of esophagogastroduodenoscopy (EGD) History of incision and drainage Family History Mother Cancer Father Cancer Social History Smoking Status: Never smoker Hx Alcohol Use: No Hx Substance Use: No Preferred Language: Swedish Communication Ability: Effective Visual Impairment: No Limitations Hearing Ability: Normal Food Processor Required: No Beliefs That Will Affect Care: None marital status: Current Living Situation: Spouse current occupational status: employed Other Information That Helps Us Care for You: No Feels Safe at Home: Yes Safety Concerns: Feels Safe At This Time Diet: regular caffeine: Yes during the past year weight has: decreased > 10 lbs Do you think of yourself as: straight/heterosexual Gender Identity: Male Assistive Devices: Denture - Upper, Denture - Lower and Glasses Allergies Allergies Allergy/AdvReac Type Severity Reaction Status Date / Time Penicillins Allergy Mild rash Verified 07/14/23 08:52 Home Meds Home Medications Medication Instructions Recorded Confirmed apixaban 5 mg tablet (Eliquis) 5 mg PO BID 08/23/23 08/23/23 atorvastatin 10 mg tablet 10 mg PO DAILY 08/23/23 08/23/23 metoprolol succinate 25 mg 25 mg PO DAILY 08/23/23 08/23/23 tablet,extended release 24 hr omeprazole 40 mg capsule,delayed 40 mg PO DAILY 08/23/23 08/23/23 release Results & Data (ED) Vital Signs Vital Signs - 24 hr 08/23/23 10:16 08/23/23 10:47 08/23/23 10:51 Temperature 36.8 C Temperature Source Temporal Artery Scan Pulse Rate 127 H 128 H 155 H Pulse Rate [Apical] Pulse Rate from SpO2 Sensor Pulse Rhythm Irregular Pulse Rhythm [Apical] Respiratory Rate 18 14 Respiratory Effort / Characteristics Non-Labored Respiratory Depth Normal Respiratory Pattern Regular Blood Pressure 124/72 146/94 H Blood Pressure Mean 89 Blood Pressure Position Sitting Pulse Oximetry 99 96 Oxygen Delivery Method Room Air Room Air Oxygen Flow Rate Sepsis Recent Fever Within 48 Hours No Sepsis New/Unexplained Change in Mental Status No Sepsis Action Taken by Nursing No Action Required 08/23/23 10:54 08/23/23 10:56 08/23/23 10:47 Temperature Temperature Source Pulse Rate 121 H Pulse Rate [Apical] 134 H Pulse Rate from SpO2 Sensor Pulse Rhythm Pulse Rhythm [Apical] Irregular Respiratory Rate 22 20 Respiratory Effort / Characteristics Respiratory Depth Respiratory Pattern Blood Pressure Blood Pressure Mean Blood Pressure Position Pulse Oximetry 96 95 Oxygen Delivery Method Room Air Room Air Oxygen Flow Rate 0 Sepsis Recent Fever Within 48 Hours Sepsis New/Unexplained Change in Mental Status Sepsis Action Taken by Nursing 08/23/23 10:50 08/23/23 11:00 08/23/23 11:34 Temperature Temperature Source Pulse Rate 121 H 103 H 108 H Pulse Rate [Apical] Pulse Rate from SpO2 Sensor 108 H Pulse Rhythm Pulse Rhythm [Apical] Respiratory Rate 23 23 Respiratory Effort / Characteristics Respiratory Depth Respiratory Pattern Blood Pressure 97/66 L Blood Pressure Mean 76 Blood Pressure Position Pulse Oximetry 78 L Oxygen Delivery Method Oxygen Flow Rate Sepsis Recent Fever Within 48 Hours Sepsis New/Unexplained Change in Mental Status Sepsis Action Taken by Nursing 08/23/23 11:02 08/23/23 11:02 08/23/23 11:10 Temperature Temperature Source Pulse Rate 99 H 102 H Pulse Rate [Apical] Pulse Rate from SpO2 Sensor 105 H 111 H Pulse Rhythm Pulse Rhythm [Apical] Respiratory Rate 26 H 24 Respiratory Effort / Characteristics Respiratory Depth Respiratory Pattern Blood Pressure 97/66 L Blood Pressure Mean 78 Blood Pressure Position Pulse Oximetry 99 98 Oxygen Delivery Method Oxygen Flow Rate Sepsis Recent Fever Within 48 Hours Sepsis New/Unexplained Change in Mental Status Sepsis Action Taken by Nursing 08/23/23 11:32 08/23/23 11:48 08/23/23 11:50 Temperature Temperature Source Pulse Rate 108 H 103 H 109 H Pulse Rate [Apical] Pulse Rate from SpO2 Sensor Pulse Rhythm Pulse Rhythm [Apical] Respiratory Rate 24 13 24 Respiratory Effort / Characteristics Respiratory Depth Respiratory Pattern Blood Pressure Blood Pressure Mean Blood Pressure Position Pulse Oximetry Oxygen Delivery Method Oxygen Flow Rate Sepsis Recent Fever Within 48 Hours Sepsis New/Unexplained Change in Mental Status Sepsis Action Taken by Nursing 08/23/23 12:00 08/23/23 12:10 08/23/23 12:27 Temperature Temperature Source Pulse Rate 95 H 103 H 102 H Pulse Rate [Apical] Pulse Rate from SpO2 Sensor 94 H 95 H Pulse Rhythm Pulse Rhythm [Apical] Respiratory Rate 22 22 Respiratory Effort / Characteristics Respiratory Depth Respiratory Pattern Blood Pressure Blood Pressure Mean Blood Pressure Position Pulse Oximetry 95 81 L Oxygen Delivery Method Oxygen Flow Rate Sepsis Recent Fever Within 48 Hours Sepsis New/Unexplained Change in Mental Status Sepsis Action Taken by Nursing 08/23/23 12:20 08/23/23 12:33 08/23/23 12:37 Temperature Temperature Source Pulse Rate 98 H 125 H Pulse Rate [Apical] Pulse Rate from SpO2 Sensor 100 H Pulse Rhythm Pulse Rhythm [Apical] Respiratory Rate 21 18 Respiratory Effort / Characteristics Respiratory Depth Respiratory Pattern Blood Pressure 140/97 Blood Pressure Mean 109 Blood Pressure Position Pulse Oximetry 92 Oxygen Delivery Method Oxygen Flow Rate Sepsis Recent Fever Within 48 Hours Sepsis New/Unexplained Change in Mental Status Sepsis Action Taken by Nursing 08/23/23 12:37 08/23/23 12:40 08/23/23 12:50 Temperature Temperature Source Pulse Rate 115 H 118 H 90 Pulse Rate [Apical] Pulse Rate from SpO2 Sensor Pulse Rhythm Pulse Rhythm [Apical] Respiratory Rate 19 19 23 Respiratory Effort / Characteristics Respiratory Depth Respiratory Pattern Blood Pressure Blood Pressure Mean Blood Pressure Position Pulse Oximetry Oxygen Delivery Method Oxygen Flow Rate Sepsis Recent Fever Within 48 Hours Sepsis New/Unexplained Change in Mental Status Sepsis Action Taken by Nursing 08/23/23 13:00 Temperature Temperature Source Pulse Rate 96 H Pulse Rate [Apical] Pulse Rate from SpO2 Sensor Pulse Rhythm Pulse Rhythm [Apical] Respiratory Rate 22 Respiratory Effort / Characteristics Respiratory Depth Respiratory Pattern Blood Pressure Blood Pressure Mean Blood Pressure Position Pulse Oximetry Oxygen Delivery Method Oxygen Flow Rate Sepsis Recent Fever Within 48 Hours Sepsis New/Unexplained Change in Mental Status Sepsis Action Taken by Nursing Laboratory Data 08/23/23 10:45 08/23/23 10:45 Lab Results 08/23/23 08/23/23 08/23/23 Range/Units 10:45 10:45 10:45 WBC 12.09 H (4.8-10.8) K/ul RBC 4.53 L (4.70-6.10) M/uL Hgb 15.0 (14.0-18.0) g/dl Hct 42.6 (42.0-52.0) % MCV 94.0 (80.0-100.0) fL MCH 33.1 (25.0-34.0) pg MCHC 35.2 (32.0-36.0) g/dL RDW Std Deviation 43.4 (36.4-46.3) fL RDW Coeff of Rudi 12.6 (11.5-14.5) % Plt Count 127 L (130-400) K/uL MPV 10.6 (9.4-12.4) fL Immature Gran % (Auto) 0.5 % Neut % (Auto) 83.0 % Lymph % (Auto) 8.1 % [place] % (Auto) 8.3 % Eos % (Auto) 0.0 % Baso % (Auto) 0.1 % Neut # (Auto) 10.04 H (1.40-6.50) K/uL Lymph # (Auto) 0.98 L (1.20-3.40) K/uL [place] # (Auto) 1.00 H (0.11-0.59) K/uL Eos # (Auto) 0.00 (0.00-0.50) K/uL Baso # (Auto) 0.01 (0.00-0.20) K/uL Immature Gran # (Auto) 0.06 (0.01-0.20) K/uL PT 12.4 H (9.0-12.0) Seconds INR 1.1 (0.9-1.1) Sodium 131 L (136-145) mmol/L Potassium 4.4 (3.5-5.1) mmol/L Chloride 96 L (98-107) mmol/L Carbon Dioxide 26 (21-32) mmol/L Anion Gap 9 (3-11) BUN 20 (6-23) mg/dl Creatinine 0.85 (0.6-1.4) mg/dl Est Cr Clr Drug Dosing 66.8 ml/min Est GFR ( Amer) 98.8 ml/min Est GFR (Non-Af Amer) 85.2 ml/min BUN/Creatinine Ratio 23.5 H (10-20) Glucose 105 H (70-99(Fasting)) mg/dl Lactate (0.4-2.0) mmol/L Calcium 9.7 (8.6-10.3) mg/dl Magnesium 1.8 (1.7-2.4) mg/dl Total Bilirubin 1.5 H (0.2-1.0) mg/dl AST 17 (13-39) U/L ALT 20 (7-52) U/L Alkaline Phosphatase 78 (34-104) U/L Troponin I High Sens 32.1 H (0-20) pg/ml Total Protein 7.4 (6.0-8.3) gm/dl Albumin 4.6 (3.4-5.0) gm/dl Globulin 2.8 (2.5-4.0) gm/dl Albumin/Globulin Ratio 1.6 (0.9-2) TSH 2.098 (0.300-4.500) uIu/ml Adenovirus (PCR) (NotDetected) B. pertussis DNA (PCR) (NotDetected) B.parapertussis DNA PCR (NotDetected) C. pneumoniae DNA (PCR) (NotDetected) Coronavirus OC43 (PCR) (NotDetected) Coronavirus HKU1 (PCR) (NotDetected) Coronavirus 229E (PCR) (NotDetected) SARS-CoV-2 (PCR) (NotDetected) Coronavirus NL63 (PCR) (NotDetected) Human Metapneumovir PCR (NotDetected) Influenza Type A (PCR) (NotDetected) Influenza Type B (PCR) (NotDetected) M. pneumoniae (PCR) (NotDetected) Parainfluenza 1 (PCR) (NotDetected) Parainfluenza 2 (PCR) (NotDetected) Parainfluenza 3 (PCR) (NotDetected) Parainfluenza 4 (PCR) (NotDetected) RSV (PCR) (NotDetected) Entero/Rhino (PCR) (NotDetected) 08/23/23 08/23/23 08/23/23 Range/Units 10:45 11:25 12:41 WBC (4.8-10.8) K/ul RBC (4.70-6.10) M/uL Hgb (14.0-18.0) g/dl Hct (42.0-52.0) % MCV (80.0-100.0) fL MCH (25.0-34.0) pg MCHC (32.0-36.0) g/dL RDW Std Deviation (36.4-46.3) fL RDW Coeff of Rudi (11.5-14.5) % Plt Count (130-400) K/uL MPV (9.4-12.4) fL Immature Gran % (Auto) % Neut % (Auto) % Lymph % (Auto) % [place] % (Auto) % Eos % (Auto) % Baso % (Auto) % Neut # (Auto) (1.40-6.50) K/uL Lymph # (Auto) (1.20-3.40) K/uL [place] # (Auto) (0.11-0.59) K/uL Eos # (Auto) (0.00-0.50) K/uL Baso # (Auto) (0.00-0.20) K/uL Immature Gran # (Auto) (0.01-0.20) K/uL PT (9.0-12.0) Seconds INR (0.9-1.1) Sodium (136-145) mmol/L Potassium (3.5-5.1) mmol/L Chloride (98-107) mmol/L Carbon Dioxide (21-32) mmol/L Anion Gap (3-11) BUN (6-23) mg/dl Creatinine (0.6-1.4) mg/dl Est Cr Clr Drug Dosing ml/min Est GFR ( Amer) ml/min Est GFR (Non-Af Amer) ml/min BUN/Creatinine Ratio (10-20) Glucose (70-99(Fasting)) mg/dl Lactate 1.2 (0.4-2.0) mmol/L Calcium (8.6-10.3) mg/dl Magnesium (1.7-2.4) mg/dl Total Bilirubin (0.2-1.0) mg/dl AST (13-39) U/L ALT (7-52) U/L Alkaline Phosphatase (34-104) U/L Troponin I High Sens 29.3 H (0-20) pg/ml Total Protein (6.0-8.3) gm/dl Albumin (3.4-5.0) gm/dl Globulin (2.5-4.0) gm/dl Albumin/Globulin Ratio (0.9-2) TSH (0.300-4.500) uIu/ml Adenovirus (PCR) Not Detected (NotDetected) B. pertussis DNA (PCR) Not Detected (NotDetected) B.parapertussis DNA PCR Not Detected (NotDetected) C. pneumoniae DNA (PCR) Not Detected (NotDetected) Coronavirus OC43 (PCR) Not Detected (NotDetected) Coronavirus HKU1 (PCR) Not Detected (NotDetected) Coronavirus 229E (PCR) Not Detected (NotDetected) SARS-CoV-2 (PCR) DETECTED A* (NotDetected) Coronavirus NL63 (PCR) Not Detected (NotDetected) Human Metapneumovir PCR Not Detected (NotDetected) Influenza Type A (PCR) Not Detected (NotDetected) Influenza Type B (PCR) Not Detected (NotDetected) M. pneumoniae (PCR) Not Detected (NotDetected) Parainfluenza 1 (PCR) Not Detected (NotDetected) Parainfluenza 2 (PCR) Not Detected (NotDetected) Parainfluenza 3 (PCR) Not Detected (NotDetected) Parainfluenza 4 (PCR) Not Detected (NotDetected) RSV (PCR) Not Detected (NotDetected) Entero/Rhino (PCR) Not Detected (NotDetected) Administered Medications Discontinued Medications Acetaminophen (Acetaminophen 500 Mg Tab) 1,000 mg PO NOW STA Stop: 08/23/23 12:24 Last Admin: 08/23/23 12:36 Dose: 1,000 mg Documented By: JAMSHID Apixaban (Apixaban 5 Mg Tablet) 5 mg PO BID XOCHITL Stop: 09/22/23 12:29 Last Admin: 08/23/23 12:37 Dose: 5 mg Documented By: JAMSHID Dexamethasone (Dexamethasone Sod Inj 4 Mg/Ml Vial) 6 mg IV NOW STA Stop: 08/23/23 12:04 Last Admin: 08/23/23 12:37 Dose: 6 mg Documented By: JAMSHID Sodium Chloride (Nss) 500 mls @ 999 mls/hr IV .Q31M XOCHITL Stop: 08/23/23 11:15 Last Infusion: 08/23/23 12:27 Dose: 0 mls/hr Documented By: Admin: 08/23/23 10:50 Dose: 999 mls/hr Documented By: JAMSHID Metoprolol Succinate (Metoprolol Succ 25mg Ext Rel Tab) 25 mg PO QAM XOCHITL Stop: 09/22/23 12:29 Last Admin: 08/23/23 12:43 Dose: 25 mg Documented By: JAMSHID Metoprolol Tartrate (Metoprolol Tartrate 1 Mg/Ml Vial) 5 mg IV NOW STA Stop: 08/23/23 10:40 Last Admin: 08/23/23 10:47 Dose: 5 mg Documented By: KV Imaging Data Radiologist's Impression: Chest X-Ray 08/23/23 10:39 SINGLE VIEW CHEST CLINICAL HISTORY: Cough. Generalized weakness FINDINGS: 2 AP, portable, upright chest radiographs are compared to chest x-ray and chest CT dated 03/25/2012. The patient is status post midline sternotomy and cardiac valve surgery. The heart is enlarged noting atherosclerotic calcification of the thoracic aorta. The pulmonary vasculature is noncongested. Chronic interstitial thickening is similar to previous. There are punctate calcified fibroadenomas. As a normal scarring are seen bilaterally. No airspace consolidation or large pleural effusion is identified. No pneumothorax is seen. The skeletal structures are osteopenic. The bony thorax is grossly intact. IMPRESSION: Cardiomegaly with no active disease in the chest. ACT 112: Negative or not required by law. Electronically signed by: John Palomo M.D. 08/23/2023 11:[address] 08/23/23 11:16 CT SCAN OF THE BRAIN WITHOUT IV CONTRAST CLINICAL HISTORY: Headache COMPARISON STUDY: No priors. TECHNIQUE: Unenhanced axial CT scan of the brain is performed from the vertex to the skull base. A dose lowering technique was utilized adhering to the principles of ALARA. CT DOSE: 547.75 mGy.cm FINDINGS: Brain parenchyma: There is age-related involutional change noting mild subcortical and periventricular microangiopathic disease. There is no hemorrhage, mass effect, or evidence of acute territorial ischemia by CT criteria. Whitney-white matter differentiation is preserved. No extra-axial fluid collection is seen. Ventricles, sulci, cisterns: Prominent secondary to involutional change. Intracranial vasculature: There is atherosclerotic calcification of the cavernous carotid arteries. Calvarium: Unremarkable. Sinuses and mastoids: The visualized paranasal sinuses are clear. The mastoid air cells are well pneumatized. Orbits: The bony orbits are grossly intact. There are bilateral ocular lens implants. IMPRESSION: There is no hemorrhage, mass effect, or evidence of acute territorial ischemia by CT criteria. ACT 112: Negative or not required by law. Electronically signed by: John Palomo M.D. 08/23/2023 11:57 AM Discharge Plan Visit Data Chief Complaint: Cardiac Assessment Stated Complaint: DOC REF,AFIB,SOB ED Provider: Ismael Worthington Discharge Problem: Atrial fibrillation with rapid ventricular response, Cough, Headache, COVID-19, Weakness Patient Disposition: Admitted As Inpatient Discharge Instructions Interventions: ED Discharge Assessment Last Done: 08/23/23 13:45
[2023-08-23 11:17] LABS: Basophils # (auto) 0.01 K/uL (0.00-0.20); Basophils % (auto) 0.1 %; Hematocrit (blood only) 42.6 % (42.0-52.0); Immature Granulocytes # (auto) 0.06 K/uL (0.01-0.20); Immature Granulocytes % (auto) 0.5 %; Lymphocytes # (auto) 0.98 K/uL (1.20-3.40); Lymphocytes % (auto) 8.1 %; Mean Corpuscular Hemoglobin 33.1 pg (25.0-34.0); Mean Corpuscular Hgb Conc 35.2 g/dL (32.0-36.0); Mean Platelet Volume 10.6 fL (9.4-12.4); Monocytes % (auto) 8.3 %; Neutrophils # (auto) 10.04 K/uL (1.40-6.50); Platelet Count 127 K/uL (130-400); RDW Coefficient of Variation 12.6 % (11.5-14.5); RDW Standard Deviation 43.4 fL (36.4-46.3); Red Blood Count 4.53 M/uL (4.70-6.10); White Blood Count 12.09 K/ul (4.8-10.8)
--- NOTE | 2023-08-23 11:17 | XRay Report ---
SINGLE VIEW CHEST CLINICAL HISTORY: Cough. Generalized weakness FINDINGS: 2 AP, portable, upright chest radiographs are compared to chest x-ray and chest CT dated . The patient is status post midline sternotomy and cardiac valve surgery. The heart is enlarg ed noting atherosclerotic calcification of the thoracic aorta. The pulmonary vasculature is nonconges jose antonio. Chronic interstitial thickening is similar to previous. There are punctate calcified fibroadenom as. As a normal scarring are seen bilaterally. No airspace consolidation or large pleural effusion is identified. No pneumothorax is seen. The skeletal structures are osteopenic. The bony thorax is sebastian sly intact. IMPRESSION: Cardiomegaly with no active disease in the chest. ACT 112: Negative or not required by law. Electronically signed by: John Palomo M.D. 08/23/2023 11:15 AM
[2023-08-23 11:29] LABS: Albumin Globulin Ratio 1.6 (0.9-2); Albumin Level 4.6 gm/dl (3.4-5.0); BUN Creatinine Ratio 23.5 (10-20); Bilirubin,Total 1.5 mg/dl (0.2-1.0); Calcium 9.7 mg/dl (8.6-10.3); Creatinine Clr Calc Pharmacy 66.8 ml/min; Est GFR (African American) 98.8 ml/min; Est GFR (Non-African American) 85.2 ml/min; Globulin 2.8 gm/dl (2.5-4.0); Magnesium 1.8 mg/dl (1.7-2.4); Potassium 4.4 mmol/L (3.5-5.1); Total Protein 7.4 gm/dl (6.0-8.3)
[2023-08-23 11:33] LABS: Troponin I High Sensitivity 32.1 pg/ml (0-20)
[2023-08-23 11:39] LABS: INR 1.1 (0.9-1.1); Prothrombin Time 12.4 Seconds (9.0-12.0)
[2023-08-23 11:42] LABS: Thyroid Stimulating Hormone 2.098 uIu/ml (0.300-4.500)
[2023-08-23 11:59] LABS: Adenovirus PCR Not Detected (NotDetected); Bordetella parapertussis PCR Not Detected (NotDetected); Bordetella pertussis PCR Not Detected (NotDetected); Chlamydia pneumoniae PCR Not Detected (NotDetected); Coronavirus 229E PCR Not Detected (NotDetected); Coronavirus HKU1 PCR Not Detected (NotDetected); Coronavirus NL63 PCR Not Detected (NotDetected); Coronavirus OC43PCR Not Detected (NotDetected); Human Metapneumovirus PCR Not Detected (NotDetected); Influenza A PCR Not Detected (NotDetected); Influenza B PCR Not Detected (NotDetected); Mycoplasma pneumoniae PCR Not Detected (NotDetected); Parainfluenza Virus 1 PCR Not Detected (NotDetected); Parainfluenza Virus 2 PCR Not Detected (NotDetected); Parainfluenza Virus 3 PCR Not Detected (NotDetected); Parainfluenza Virus 4 PCR Not Detected (NotDetected); Respiratory Syncytial VirusPCR Not Detected (NotDetected); Rhinovirus/Enterovirus PCR Not Detected (NotDetected)
--- NOTE | 2023-08-23 11:59 | CT Scan Report ---
CT SCAN OF THE BRAIN WITHOUT IV CONTRAST CLINICAL HISTORY: Headache COMPARISON STUDY: No priors. TECHNIQUE: Unenhanced axial CT scan of the brain is performed from the vertex to the skull base. A do se lowering technique was utilized adhering to the principles of ALARA. CT DOSE: 547.75 mGy.cm FINDINGS: Brain parenchyma: There is age-related involutional change noting mild subcortical and periventricula r microangiopathic disease. There is no hemorrhage, mass effect, or evidence of acute territorial isc hemia by CT criteria. Whitney-white matter differentiation is preserved. No extra-axial fluid collection is seen. Ventricles, sulci, cisterns: Prominent secondary to involutional change. Intracranial vasculature: There is atherosclerotic calcification of the cavernous carotid arteries. Calvarium: Unremarkable. Sinuses and mastoids: The visualized paranasal sinuses are clear. The mastoid air cells are well pneu matized. Orbits: The bony orbits are grossly intact. There are bilateral ocular lens implants. IMPRESSION: There is no hemorrhage, mass effect, or evidence of acute territorial ischemia by CT isiah powell. ACT 112: Negative or not required by law. Electronically signed by: John Palomo M.D. 08/23/2023 11:57 AM
[2023-08-23 12:03] LABS: Coronavirus CoV-2 (COVID19)PCR DETECTED (NotDetected)
[2023-08-23] MEDS ORDERED: DEXAMETHASONE SOD INJ 4 MG/ML VIAL IV STA (12:03)
[2023-08-23] MEDS ORDERED: ACETAMINOPHEN 500 MG TAB PO STA (12:23)
[2023-08-23] MEDS ORDERED: METOPROLOL SUCC 25MG EXT REL TAB PO SCH (12:30)
[2023-08-23] MEDS ORDERED: APIXABAN 5 MG TABLET PO SCH (12:30)
--- NOTE | 2023-08-23 13:05 | History & Physical Report ---
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 Initial O2 sat 99% on room air with repeat recorded at 81% on room air. However upon repeat evaluation is 97% on room air. WBC: 12. Lactate WNL CXR: No infiltrate In ER given dexamethasone 6mg IV Airborne isolation Supplemental oxygen as needed. Currently patient not hypoxic Dexamethasone 6mg IV daily Will hold on Remdesivir at this time as discussion with patient and he declines Incentive spirometry Mucinex Xopenex inhaler prn CBC, CMP in am (2) Atrial fibrillation with RVR: Plan: History persistent atrial fibrillation. Anticoagulated on Eliquis Rapid atrial fibrillation in setting of acute infection with COVID-19 Initial ER presentation with afib with heart rate in the 120s. Has trended down to HR 90's-low 100's. BP 140/97 In ER given IV metoprolol tartrate 5mg and his home morning dose of metoprolol succinate 25mg TSH: 2.0. Troponin: 32 Continue Eliquis Plan to continue home metoprolol succinate however will closely monitor HR and may need to further adjust medication 07/04/2023 echo: Mild diffuse LV hypokinesis, EF 45-50%, mitral valve repair and annuloplasty ring, mild mitral regurgitation, mild tricuspid regurgitation, aortic root mildly enlarged 3.9 cm, proximal ascending thoracic aorta mildly enlarged 4 cm Will hold on repeat echo at this time Consider cardiology consult if worsening (3) Elevated troponin: Plan: HS Troponin: 32 -->29 EKG Afib RVR, incomplete RBBB Likely demand ischemia in setting of rapid A-fib Trend troponin Will hold on echo at this time given recent outpatient echo. If troponins uptrending plan on repeat echo and cardiology consult (4) H/O mitral valve repair: Plan: Myxomatous mitral regurgitation s/p mitral valve repair in 2012 Follows with [facility] cardiology (5) Hypertension: Plan: Continue metoprolol succinate (6) HLD (hyperlipidemia): Plan: Continue atorvastatin DVT Prophylaxis On Eliquis Full Code as per discussion with pt, however reports would not want prolonged life support if poor prognosis Follows with Dr Pancho Lovell for routine care Pt was seen and care coordinated with Dr Harp. 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 History obtained from patient as well as inpatient and outpatient chart review. Patient states 3 days ago started with sore throat, ear pressure, headache, fatigue, rhinorrhea, cough, myalgias. States cough productive white color phlegm. Denies any shortness of breath, chest pain, palpitations. Had fever up to 102F. States today temperature has been 98F. Seen at PCPs office today for reported fever, URI symptoms. At PCPs office found to be tachycardic and in rapid atrial fibrillation and was referred to ER. Patient states didn't have meds this morning, otherwise he has not missed doses of medications. Reports family sick recently with URI symptoms as well. Reports had 3 COVID-19 vaccinations. Patient follows with [facility] cardiology. Was transition from metoprolol tartrate to metoprolol succinate in 07/2023. Denies diaphoresis, N/V/D/C, dizziness, syncope, vision changes, CP, SOB, orthopnea, palpitations, hemoptysis, choking, ear discharge, abdominal pain, paresthesias, extremity edema, rashes, urinary symptoms. Allergies Allergy/AdvReac Type Severity Reaction Status Date / Time Penicillins Allergy Mild rash Verified 07/14/23 08:52 Home Medications Medication Instructions Recorded Confirmed Type apixaban 5 mg tablet (Eliquis) 5 mg PO BID 08/23/23 08/23/23 History atorvastatin 10 mg tablet 10 mg PO DAILY 08/23/23 08/23/23 History metoprolol succinate 25 mg 25 mg PO DAILY 08/23/23 08/23/23 History tablet,extended release 24 hr omeprazole 40 mg capsule,delayed 40 mg PO DAILY 08/23/23 08/23/23 History release 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 Tortuous colon Tubulovillous adenoma of colon Surgical History H/O colonoscopy H/O excision of lamina of cervical vertebra for decompression of spinal cord H/O mitral valve repair History of cholecystectomy History of esophagogastroduodenoscopy (EGD) History of incision and drainage Family History Mother Cancer Father Cancer Social History Smoking Status: Never smoker Hx Alcohol Use: No Hx Substance Use: No Preferred Language: [place] Communication Ability: Effective Visual Impairment: No Limitations Hearing Ability: Normal District Plant Engineer Required: No Beliefs That Will Affect Care: None marital status: Current Living Situation: Spouse current occupational status: employed Other Information That Helps Us Care for You: No Feels Safe at Home: Yes Safety Concerns: Feels Safe At This Time Diet: regular caffeine: Yes during the past year weight has: decreased > 10 lbs Do you think of yourself as: straight/heterosexual Gender Identity: Male Assistive Devices: Denture - Upper, Denture - Lower and Glasses Review of Systems Review of Systems: All systems reviewed & are unremarkable except as noted in HPI & below Physical Exam Physical Exam: General: no acute distress, WDWN Head: normocephalic, atraumatic Eyes: conjunctiva non-injected, anicteric ENT: normal inspection external ears, nose, mucous membranes moist Neck: supple, trachea midline, +healed surgical scar posterior neck Lungs: clear, no respiratory distress, 97% on RA, R: 20, no wheezing/rhonchi/rales noted CV: irregularly irregular, no pretibial edema Abd: normal BS, soft, non-tender Ext: no cyanosis, no erythema, no calf tenderness Neuro: A&O x 3, no focal deficits noted, normal affect Skin: warm, dry Results & Data Results & Data Vital Signs (Past 12 Hours) Vital Signs Temp Pulse Pulse Resp BP Pulse Ox O2 Del Method 08/23/23 12:27 102 H 08/23/23 12:10 103 H 22 81 L 08/23/23 12:00 95 H 22 95 08/23/23 11:50 109 H 24 08/23/23 11:48 103 H 13 08/23/23 11:32 108 H 24 08/23/23 11:10 102 H 24 98 08/23/23 11:02 97/66 L 08/23/23 11:02 99 H 26 H 99 08/23/23 11:34 108 H 08/23/23 11:00 103 H 23 97/66 L 78 L 08/23/23 10:50 121 H 23 08/23/23 10:47 121 H 20 08/23/23 10:56 95 Room Air 08/23/23 10:54 134 H 22 96 Room Air 08/23/23 10:51 155 H 14 96 Room Air 08/23/23 10:47 128 H 146/94 H 08/23/23 10:16 36.8 C 127 H 18 124/72 99 Room Air O2 Flow Rate 08/23/23 12:27 08/23/23 12:10 08/23/23 12:00 08/23/23 11:50 08/23/23 11:48 08/23/23 11:32 08/23/23 11:10 08/23/23 11:02 08/23/23 11:02 08/23/23 11:34 08/23/23 11:00 08/23/23 10:50 08/23/23 10:47 08/23/23 10:56 0 08/23/23 10:54 08/23/23 10:51 08/23/23 10:47 08/23/23 10:16 Laboratory Results Short CBC 08/23/23 Range/Units 10:45 WBC 12.09 H (4.8-10.8) K/ul Hgb 15.0 (14.0-18.0) g/dl Hct 42.6 (42.0-52.0) % Plt Count 127 L (130-400) K/uL BMP 08/23/23 10:45 Sodium 131 L Potassium 4.4 Chloride 96 L Carbon Dioxide 26 BUN 20 Creatinine 0.85 Glucose 105 H Calcium 9.7 Liver Function 08/23/23 Range/Units 10:45 Total Bilirubin 1.5 H (0.2-1.0) mg/dl AST 17 (13-39) U/L ALT 20 (7-52) U/L Alkaline Phosphatase 78 (34-104) U/L Albumin 4.6 (3.4-5.0) gm/dl Urine 08/23/23 Range/Units Unknown Urine Color Dark Yellow Urine Appearance Clear (Clear) Urine pH 5.5 (4.5-7.5) Ur Specific [place] 1.028 (1.000-1.030) Urine Protein 1+ H (Negative) Urine Glucose (UA) Negative (Negative) Diagnostic Findings Chest X-Ray 08/23/23 10:39 SINGLE VIEW CHEST CLINICAL HISTORY: Cough. Generalized weakness FINDINGS: 2 AP, portable, upright chest radiographs are compared to chest x-ray and chest CT dated 03/25/2012. The patient is status post midline sternotomy and cardiac valve surgery. The heart is enlarged noting atherosclerotic calcification of the thoracic aorta. The pulmonary vasculature is noncongested. Chronic interstitial thickening is similar to previous. There are punctate calcified fibroadenomas. As a normal scarring are seen bilaterally. No airspace consolidation or large pleural effusion is identified. No pneumothorax is seen. The skeletal structures are osteopenic. The bony thorax is grossly intact. IMPRESSION: Cardiomegaly with no active disease in the chest. ACT 112: Negative or not required by law. Electronically signed by: John Palomo M.D. 08/23/2023 11:[address] 08/23/23 11:16 CT SCAN OF THE BRAIN WITHOUT IV CONTRAST CLINICAL HISTORY: Headache COMPARISON STUDY: No priors. TECHNIQUE: Unenhanced axial CT scan of the brain is performed from the vertex to the skull base. A dose lowering technique was utilized adhering to the principles of ALARA. CT DOSE: 547.75 mGy.cm FINDINGS: Brain parenchyma: There is age-related involutional change noting mild subcortical and periventricular microangiopathic disease. There is no hemorrhage, mass effect, or evidence of acute territorial ischemia by CT criteria. Whitney-white matter differentiation is preserved. No extra-axial fluid collection is seen. Ventricles, sulci, cisterns: Prominent secondary to involutional change. Intracranial vasculature: There is atherosclerotic calcification of the cavernous carotid arteries. Calvarium: Unremarkable. Sinuses and mastoids: The visualized paranasal sinuses are clear. The mastoid air cells are well pneumatized. Orbits: The bony orbits are grossly intact. There are bilateral ocular lens implants. IMPRESSION: There is no hemorrhage, mass effect, or evidence of acute territorial ischemia by CT criteria. ACT 112: Negative or not required by law. Electronically signed by: John Palomo M.D. 08/23/2023 11:57 AM ECG Additional Comments: atrial fibrillation, rate 134, incomplete RBBB per my interpreation Supervising Physician Co-Signing Physician Notes I have seen and discussed the case with the collaborating PA-C. I agree with the above H&P. I have reviewed and confirmed the patients medical history, the findings on physical examination, and the patients diagnosis and treatment plan with Shirley MCCALL and agree with the information documented. In short, Mr. Light is a 73 year old gentleman with history including PAF who is admitted due to a fib RVR iso COVID infection. Patient initally with rates in 130s, improved with po metorpolol and IV lopressor, as well as small fluid bolus. There was concern initially for hypoxia, prompting IV dex; but patient denied any respiratory symptoms, noting mostly postnasal drip and generalized fatigue, with occasional cough. Plan to continue dex IV, hold on remdesivir per patient, and to monitor on tele for adequate rate control. Symptomatic management. Rest of plan as above.
[2023-08-23 13:19] LABS: Appearance Urine Clear (Clear); Bacteria Urine Automated Negative (Negative); Blood Urine Trace (Negative); Color Urine Dark Yellow; Epithelial Cell Urine Auto 20-30 /lpf (0-5); Glucose Urine UA Negative (Negative); Ketones Urine 3+ (Negative); Leukocyte Esterase Urine Trace (Negative); Nitrite Urine Negative (Negative); Protein Urine 1+ (Negative); Specific Gravity Urine 1.028 (1.000-1.030); Urobilinogen Urine Positive (Negative); pH Urine 5.5 (4.5-7.5)
[2023-08-23 13:25] LABS: Bilirubin Urine 1+ (Negative)
[2023-08-23 13:27] LABS: RBC Urine Automated 0-4 /hpf (0-4)
[2023-08-23] MEDS ORDERED: ACETAMINOPHEN 325 MG TAB PO PRN (13:46)
[2023-08-23] MEDS ORDERED: ONDANSETRON INJ 2 MG/ML 2 ML VIAL IV PRN (13:46)
[2023-08-23] MEDS ORDERED: POLYETHYLENE (MIRALAX) 17 GM PACK PO PRN (13:46)
[2023-08-23] MEDS ORDERED: LEVALBUTEROL TARTRATE 15 GM HFA.AER.AD INH PRN (14:07)
--- NOTE | 2023-08-23 16:50 | Electrocardiogram Report ---
Test Reason : Blood Pressure : / mmHG Vent. Rate : 134 BPM Atrial Rate : 000 BPM P-R Int : 000 ms QRS Dur : 102 ms QT Int : 272 ms P-R-T Axes : 000 123 -21 degrees QTc Int : 406 ms Poor data quality, interpretation may be adversely affected Atrial fibrillation with rapid ventricular response with premature ventricular or aberrantly conducte d complexes Right axis deviation Incomplete right bundle branch block Septal infarct , age undetermined T wave abnormality, consider inferior ischemia Abnormal ECG When compared with ECG of 02-FEB-2013 17:39, Atrial fibrillation has replaced Sinus rhythm Vent. rate has increased BY 70 BPM Incomplete right bundle branch block is now Present Septal infarct is now Present Confirmed by Quinton Morris ([id number]) on 08/23/2023 4:49:56 PM Referred By: REFERRED SELF Confirmed By:Quinton Morris
[2023-08-23] MEDS: guaiFENesin 600 MG TABCR PO SCH (21:41)
[2023-08-23] MEDS: APIXABAN 5 MG TABLET PO SCH (21:42)
[2023-08-24 07:46] LABS: Hematocrit (blood only) 34.5 % (42.0-52.0); Hemoglobin 12.2 g/dl (14.0-18.0); Immature Granulocytes # (auto) 0.04 K/uL (0.01-0.20); Immature Granulocytes % (auto) 0.7 %; Lymphocytes # (auto) 0.55 K/uL (1.20-3.40); Lymphocytes % (auto) 9.5 %; Mean Corpuscular Hemoglobin 32.8 pg (25.0-34.0); Mean Corpuscular Hgb Conc 35.4 g/dL (32.0-36.0); Mean Corpuscular Volume 92.7 fL (80.0-100.0); Mean Platelet Volume 10.4 fL (9.4-12.4); Monocytes # (auto) 0.43 K/uL (0.11-0.59); Monocytes % (auto) 7.4 %; Neutrophils # (auto) 4.78 K/uL (1.40-6.50); Neutrophils % (auto) 82.4 %; Platelet Count 113 K/uL (130-400); RDW Coefficient of Variation 12.5 % (11.5-14.5); RDW Standard Deviation 42.5 fL (36.4-46.3); Red Blood Count 3.72 M/uL (4.70-6.10)
[2023-08-24 07:58] LABS: Albumin Globulin Ratio 1.5 (0.9-2); Albumin Level 3.5 gm/dl (3.4-5.0); Bilirubin,Total 0.8 mg/dl (0.2-1.0); Calcium 8.7 mg/dl (8.6-10.3); Creatinine Clr Calc Pharmacy 93.9 ml/min; Est GFR (Non-African American) 98.4 ml/min; Globulin 2.3 gm/dl (2.5-4.0); Magnesium 1.9 mg/dl (1.7-2.4); Potassium 4.4 mmol/L (3.5-5.1); Total Protein 5.8 gm/dl (6.0-8.3)
[2023-08-24] MEDS ORDERED: dexAMETHasone 6 MG in SYRINGE 0 ML IV SCH (09:00)
[2023-08-24] MEDS: guaiFENesin 600 MG TABCR PO SCH ×2 (10:25→22:11)
[2023-08-24] MEDS: METOPROLOL SUCC 25MG EXT REL TAB PO SCH (10:25)
[2023-08-24] MEDS: PANTOprazole 40 MG TAB PO SCH (10:25)
[2023-08-24] MEDS: APIXABAN 5 MG TABLET PO SCH ×2 (10:27→22:11)
[2023-08-24] MEDS: ATORVASTATIN 10 MG TAB PO SCH (10:27)
--- NOTE | 2023-08-24 13:00 | Electrocardiogram Report ---
Test Reason : Blood Pressure : / mmHG Vent. Rate : 069 BPM Atrial Rate : 060 BPM P-R Int : 000 ms QRS Dur : 108 ms QT Int : 420 ms P-R-T Axes : 000 077 026 degrees QTc Int : 450 ms Atrial fibrillation Abnormal ECG When compared with ECG of 23-AUG-2023 10:31, Vent. rate has decreased BY 65 BPM Incomplete right bundle branch block is no longer Present Criteria for Septal infarct are no longer Present Confirmed by Angelo Allen ([id number] on 08/24/2023 1:00:07 PM Referred By: REFERRED SELF Confirmed By:Angelo Allen
--- NOTE | 2023-08-24 16:03 | Hospitalist Progress Note ---
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 Initial O2 sat 99% on room air with repeat recorded at 81% on room air. However upon repeat evaluation is 97% on room air. WBC: 12. Lactate WNL CXR: No infiltrate In ER given dexamethasone 6mg IV Airborne isolation Supplemental oxygen as needed. Currently patient not hypoxic Dexamethasone 6mg IV daily Will hold on Remdesivir at this time as discussion with patient and he declines Incentive spirometry Mucinex Xopenex inhaler prn Respiratory symptoms are absent and he has been saturating normally on room air We will discontinue intravenous dexamethasone and observe (2) Atrial fibrillation with RVR: Plan: History persistent atrial fibrillation. Anticoagulated on Eliquis Rapid atrial fibrillation in setting of acute infection with COVID-19 Initial ER presentation with afib with heart rate in the 120s. Has trended down to HR 90's-low 100's. BP 140/97 In ER given IV metoprolol tartrate 5mg and his home morning dose of metoprolol succinate 25mg TSH: 2.0. Troponin: 32 Continue Eliquis Plan to continue home metoprolol succinate however will closely monitor HR and may need to further adjust medication 07/04/2023 echo: Mild diffuse LV hypokinesis, EF 45-50%, mitral valve repair and annuloplasty ring, mild mitral regurgitation, mild tricuspid regurgitation, aortic root mildly enlarged 3.9 cm, proximal ascending thoracic aorta mildly enlarged 4 cm Will hold on repeat echo at this time Heart rate remains stable following restarting cardiac medications Cardiology consult has been canceled and the patient heart rate remains stable We will continue current management (3) Elevated troponin: Plan: HS Troponin: 32 -->29 EKG Afib RVR, incomplete RBBB Likely demand ischemia in setting of rapid A-fib Trend troponin Will hold on echo at this time given recent outpatient echo. If troponins uptrending plan on repeat echo and cardiology consult (4) H/O mitral valve repair: Plan: Myxomatous mitral regurgitation s/p mitral valve repair in 2012 Follows with [facility] cardiology (5) Hypertension: Plan: Continue metoprolol succinate (6) HLD (hyperlipidemia): Plan: Continue atorvastatin DVT Prophylaxis On Eliquis Full Code as per discussion with pt, however reports would not want prolonged life support if poor prognosis Follows with Dr Pancho Lovell for routine care Likely discharge tomorrow Admission and Anticipated Discharge Date Admission Date: August 23, 2023 Subjective 08/24/2023 The patient was seen and examined in telemetry unit He was admitted with URI symptoms for the last 3 days and noted to have A-fib with RVR and COVID-positive He has been feeling much better since admission Apparently he was not taking his cardiac medications for the last few days Heart rate is controlled and symptoms are better Review of Systems Review of Systems: All systems reviewed and are unremarkable except as noted below Physical Exam Physical Exam: Lying in bed comfortably Constitutional: average body habitus; not ill appearing Eyes: PERRL, conjunctivae normal, anicteric sclerae ENMT: external ear and nose normal, oropharynx normal Neck: trachea midline, no thyromegaly Respiratory: no respiratory distress Auscultation: lungs clear to auscultation bilaterally Cardiovascular: Rate/Rhythm: regular rate and regular rhythm Heart Sounds: normal S1 and normal S2; no murmur Extremities: no edema Gastrointestinal (Abdomen): Inspection/Auscultation: normal bowel sounds; abdomen not distended Percussion/Palpation: abdomen soft; abdomen nontender Musculoskeletal: No acute arthritis involving any joint Neurologic: normal touch/pain/proprioception and moves all extremities; no focal motor deficits Lymphatic: no cervical or axillary lymphadenopathy Results & Data Results & Data Vital Signs (Past 12 Hours) Vital Signs Temp Pulse Resp BP Pulse Ox O2 Del Method 08/24/23 11:52 36.6 C 79 19 117/74 99 Room Air 08/24/23 07:50 36.7 C 76 19 106/62 98 Room Air Laboratory Results Short CBC 08/24/23 Range/Units 06:58 WBC 5.80 (4.8-10.8) K/ul Hgb 12.2 L (14.0-18.0) g/dl Hct 34.5 L (42.0-52.0) % Plt Count 113 L (130-400) K/uL BMP 08/24/23 06:58 Sodium 132 L Potassium 4.4 Chloride 100 Carbon Dioxide 28 BUN 21 Creatinine 0.60 Glucose 121 H Calcium 8.7 Liver Function 08/24/23 Range/Units 06:58 Total Bilirubin 0.8 D (0.2-1.0) mg/dl AST 14 (13-39) U/L ALT 15 (7-52) U/L Alkaline Phosphatase 53 (34-104) U/L Albumin 3.5 (3.4-5.0) gm/dl Medications Administered Current Inpatient Medications Acetaminophen (Acetaminophen 325 Mg Tab) 650 mg PO Q4H PRN PRN Reason: Pain or Fever Stop: 09/22/23 13:45 Apixaban (Apixaban 5 Mg Tablet) 5 mg PO BID XOCHITL Stop: 09/22/23 20:59 Last Admin: 08/24/23 10:27 Dose: 5 mg Atorvastatin Calcium (Atorvastatin 10 Mg Tab) 10 mg PO DAILY XOCHITL Stop: 09/23/23 08:59 Last Admin: 08/24/23 10:27 Dose: 10 mg Guaifenesin (Guaifenesin 600 Mg Tabcr) 600 mg PO Q12 XOCHITL Stop: 08/26/23 20:59 Last Admin: 08/24/23 10:25 Dose: 600 mg Dexamethasone 6 mg/ Syringe 1.5 mls @ 1 mls/min IV DAILY XOCHITL Stop: 09/02/23 09:02 Last Admin: 08/24/23 10:38 Dose: 1 mls/min Levalbuterol HCl (Levalbuterol Tartrate 15 Gm Hfa.Aer.Ad) 2 puffs INH QIDR PRN PRN Reason: Shortness Of Breath Or Wheezing Stop: 09/22/23 14:06 Metoprolol Succinate (Metoprolol Succ 25mg Ext Rel Tab) 25 mg PO DAILY XOCHITL Stop: 09/23/23 08:59 Last Admin: 08/24/23 10:25 Dose: 25 mg Ondansetron HCl (Ondansetron Inj 2 Mg/Ml 2 Ml Vial) 4 mg IV Q6H PRN PRN Reason: Nausea Stop: 09/22/23 13:45 Pantoprazole Sodium (Pantoprazole 40 Mg Tab) 40 mg PO DAILY XOCHITL Stop: 09/23/23 08:59 Last Admin: 08/24/23 10:25 Dose: 40 mg Polyethylene Glycol (Polyethylene (Miralax) 17 Gm Pack) 17 gm PO DAILY PRN PRN Reason: Constipation Stop: 09/22/23 13:45
[2023-08-24 20:01] VITALS: RESP 18
[2023-08-25 03:43] VITALS: TEMP 97.3
[2023-08-25 07:22] LABS: Basophils # (auto) 0.01 K/uL (0.00-0.20); Basophils % (auto) 0.1 %; Hematocrit (blood only) 35.3 % (42.0-52.0); Hemoglobin 12.6 g/dl (14.0-18.0); Immature Granulocytes # (auto) 0.05 K/uL (0.01-0.20); Immature Granulocytes % (auto) 0.6 %; Lymphocytes # (auto) 0.54 K/uL (1.20-3.40); Mean Corpuscular Hemoglobin 33.1 pg (25.0-34.0); Mean Corpuscular Hgb Conc 35.7 g/dL (32.0-36.0); Mean Corpuscular Volume 92.7 fL (80.0-100.0); Mean Platelet Volume 10.1 fL (9.4-12.4); Monocytes # (auto) 0.59 K/uL (0.11-0.59); Monocytes % (auto) 7.6 %; Neutrophils # (auto) 6.56 K/uL (1.40-6.50); Neutrophils % (auto) 84.7 %; Platelet Count 121 K/uL (130-400); RDW Coefficient of Variation 12.8 % (11.5-14.5); RDW Standard Deviation 42.9 fL (36.4-46.3); Red Blood Count 3.81 M/uL (4.70-6.10); White Blood Count 7.75 K/ul (4.8-10.8)
[2023-08-25 07:42] LABS: BUN Creatinine Ratio 31.8 (10-20); Calcium 9.2 mg/dl (8.6-10.3); Creatinine Clr Calc Pharmacy 85.4 ml/min; Est GFR (African American) 109.6 ml/min; Est GFR (Non-African American) 94.6 ml/min; Magnesium 1.8 mg/dl (1.7-2.4)
[2023-08-25 08:28] VITALS: BP 102/66; PULSE 72; O2SAT 99
[2023-08-25] MEDS: APIXABAN 5 MG TABLET PO SCH (10:28)
[2023-08-25] MEDS: METOPROLOL SUCC 25MG EXT REL TAB PO SCH (10:28)
[2023-08-25] MEDS: guaiFENesin 600 MG TABCR PO SCH (10:28)
[2023-08-25] MEDS: ATORVASTATIN 10 MG TAB PO SCH (10:29)
[2023-08-25] MEDS: PANTOprazole 40 MG TAB PO SCH (10:29)
--- NOTE | 2023-08-25 14:23 | Hospitalist Progress Note ---
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 Initial O2 sat 99% on room air with repeat recorded at 81% on room air. However upon repeat evaluation is 97% on room air. WBC: 12. Lactate WNL CXR: No infiltrate In ER given dexamethasone 6mg IV Airborne isolation Supplemental oxygen as needed. Currently patient not hypoxic Dexamethasone 6mg IV daily Will hold on Remdesivir at this time as discussion with patient and he declines Incentive spirometry Mucinex Xopenex inhaler prn Respiratory symptoms are absent and he has been saturating normally on room air We will discontinue intravenous dexamethasone and observe Remains asymptomatic-he will be discharged home with home isolation for the next of the days (2) Atrial fibrillation with RVR: Plan: History persistent atrial fibrillation. Anticoagulated on Eliquis Rapid atrial fibrillation in setting of acute infection with COVID-19 Initial ER presentation with afib with heart rate in the 120s. Has trended down to HR 90's-low 100's. BP 140/97 In ER given IV metoprolol tartrate 5mg and his home morning dose of metoprolol succinate 25mg TSH: 2.0. Troponin: 32 Continue Eliquis Plan to continue home metoprolol succinate however will closely monitor HR and may need to further adjust medication 07/04/2023 echo: Mild diffuse LV hypokinesis, EF 45-50%, mitral valve repair and annuloplasty ring, mild mitral regurgitation, mild tricuspid regurgitation, aortic root mildly enlarged 3.9 cm, proximal ascending thoracic aorta mildly enlarged 4 cm Will hold on repeat echo at this time Heart rate remains stable following restarting cardiac medications Cardiology consult has been canceled and the patient heart rate remains stable We will continue current management Discussed with the senior buyer planner-it is controlled and will not change any medication (3) Elevated troponin: Plan: HS Troponin: 32 -->29 EKG Afib RVR, incomplete RBBB Likely demand ischemia in setting of rapid A-fib Trend troponin Will hold on echo at this time given recent outpatient echo. If troponins uptrending plan on repeat echo and cardiology consult (4) H/O mitral valve repair: Plan: Myxomatous mitral regurgitation s/p mitral valve repair in 2013 Follows with [facility] cardiology (5) Hypertension: Plan: Continue metoprolol succinate (6) HLD (hyperlipidemia): Plan: Continue atorvastatin DVT Prophylaxis On Eliquis Full Code as per discussion with pt, however reports would not want prolonged life support if poor prognosis Follows with Dr Pancho Lovell for routine care Likely discharge tomorrow Admission and Anticipated Discharge Date Admission Date: August 23, 2023 Subjective 08/24/2023 The patient was seen and examined in telemetry unit He was admitted with URI symptoms for the last 3 days and noted to have A-fib with RVR and COVID-positive He has been feeling much better since admission Apparently he was not taking his cardiac medications for the last few days Heart rate is controlled and symptoms are better 08/25/2023 The patient was seen and examined in telemetry unit He has been feeling much better without respiratory and/or cardiac symptoms Case discussed with Dr. Gleason in the room with any change with his metoprolol on discharge Review of Systems Review of Systems: All systems reviewed and are unremarkable except as noted below Physical Exam Physical Exam: Lying in bed comfortably Constitutional: average body habitus; not ill appearing Eyes: PERRL, conjunctivae normal, anicteric sclerae ENMT: external ear and nose normal, oropharynx normal Neck: trachea midline, no thyromegaly Respiratory: no respiratory distress Auscultation: lungs clear to auscultation bilaterally Cardiovascular: Rate/Rhythm: regular rate and regular rhythm Heart Sounds: normal S1 and normal S2; no murmur Extremities: no edema Gastrointestinal (Abdomen): Inspection/Auscultation: normal bowel sounds; abdomen not distended Percussion/Palpation: abdomen soft; abdomen nontender Musculoskeletal: No acute arthritis involving any of the joint Neurologic: normal touch/pain/proprioception and moves all extremities; no focal motor deficits Lymphatic: no cervical or axillary lymphadenopathy Results & Data Results & Data Vital Signs (Past 12 Hours) Vital Signs Temp Pulse Resp BP Pulse Ox O2 Del Method 08/25/23 07:30 Room Air 08/25/23 08:27 36.3 C L 72 18 102/66 99 Room Air 08/25/23 03:43 36.3 C L 71 18 91/53 L 97 Room Air Laboratory Results Short CBC 08/25/23 Range/Units 06:34 WBC 7.75 (4.8-10.8) K/ul Hgb 12.6 L (14.0-18.0) g/dl Hct 35.3 L (42.0-52.0) % Plt Count 121 L (130-400) K/uL BMP 08/25/23 06:34 Sodium 135 L Potassium 4.0 Chloride 101 Carbon Dioxide 28 BUN 21 Creatinine 0.66 Glucose 118 H Calcium 9.2
--- NOTE | 2023-08-26 08:00 | Discharge Summary ---
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 History obtained from patient as well as inpatient and outpatient chart review. Patient states 3 days ago started with sore throat, ear pressure, headache, fatigue, rhinorrhea, cough, myalgias. States cough productive white color phlegm. Denies any shortness of breath, chest pa in, palpitations. Had fever up to 102F. States today temperature has been 98F. Seen at PCPs office today for reported fever, URI symptoms. At PCPs office found to be tachycardic and in rapid atrial fibrillation and was referred to ER. Patient states didn't have meds this morning, otherwise he has not missed doses of medications. Reports family sick recently with URI symptoms as well. Reports had 3 COVID-19 vaccinations. Patient follows with [facility] cardiology. Was transition from metoprolol tartrate to metoprolol succinate in 07/2023. Denies diaphoresis, N/V/D/C, dizziness, syncope, vision changes, CP, SOB, orthopnea, palpitations, hemoptysis, choking, ear discharge, abdominal pain, paresthesias, extremity edema, rashes, urinary symptoms. Admission Exam Per Admitting Provider Physical Exam: General: no acute distress, WDWN Head: normocephalic, atraumatic Eyes: conjunctiva non-injected, anicteric ENT: normal inspection external ears, nose, mucous membranes moist Neck: supple, trachea midline, +healed surgical scar posterior neck Lungs: clear, no respiratory distress, 97% on RA, R: 20, no wheezing/rhonchi/rales noted CV: irregularly irregular, no pretibial edema Abd: normal BS, soft, non-tender Ext: no cyanosis, no erythema, no calf tenderness Neuro: A&O x 3, no focal deficits noted, normal affect Skin: warm, dry Principal Diagnosis Atrial fibrillation with RVR, Discharge Exam Lying in bed comfortably Constitutional average body habitus; not ill appearing Eyes PERRL, conjunctivae normal, anicteric sclerae ENMT external ear and nose normal, oropharynx normal Neck trachea midline, no thyromegaly Respiratory no respiratory distress Auscultation: lungs clear to auscultation bilaterally Cardiovascular Rate/Rhythm: regular rate and regular rhythm Heart Sounds: normal S1 and normal S2; no murmur Extremities: no edema Gastrointestinal (Abdomen) Inspection/Auscultation: normal bowel sounds; abdomen not distended Percussion/Palpation: abdomen soft; abdomen nontender Neurologic normal touch/pain/proprioception and moves all extremities; no focal motor deficits Lymphatic no cervical or axillary lymphadenopathy Discharge Data Allergies Allergy/AdvReac Type Severity Reaction Status Date / Time Penicillins Allergy Mild rash Verified 07/14/23 08:52 Consultations 08/23/23 13:05 ED Decision to Admit Stat Ordered Studies 08/23/23 11:16 CT head/brain wo con Stat Hospital Course (1) COVID-19: Patient is 73-year-old male with PMH HTN, dyslipidemia, 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 Initial O2 sat 99% on room air with repeat recorded at 81% on room air. However upon repeat evaluation is 97% on room air. WBC: 12. Lactate WNL CXR: No infiltrate In ER given dexamethasone 6mg IV Airborne isolation Supplemental oxygen as needed. Currently patient not hypoxic Dexamethasone 6mg IV daily Will hold on Remdesivir at this time as discussion with patient and he declines Incentive spirometry Mucinex Xopenex inhaler prn Respiratory symptoms are absent and he has been saturating normally on room air We will discontinue intravenous dexamethasone and observe Remains asymptomatic-he will be discharged home with home isolation for the next of the days (2) Atrial fibrillation with RVR: History persistent atrial fibrillation. Anticoagulated on Eliquis Rapid atrial fibrillation in setting of acute infection with COVID-19 Initial ER presentation with afib with heart rate in the 120s. Has trended down to HR 90's-low 100's. BP 140/97 In ER given IV metoprolol tartrate 5mg and his home morning dose of metoprolol succinate 25mg TSH: 2.0. Troponin: 32 Continue Eliquis Plan to continue home metoprolol succinate however will closely monitor HR and may need to further adjust medication 07/04/2023 echo: Mild diffuse LV hypokinesis, EF 45-50%, mitral valve repair and annuloplasty ring, mild mitral regurgitation, mild tricuspid regurgitation, aortic root mildly enlarged 3.9 cm, proximal ascending thoracic aorta mildly enlarged 4 cm Will hold on repeat echo at this time Heart rate remains stable following restarting cardiac medications Cardiology consult has been canceled and the patient heart rate remains stable We will continue current management 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 If troponins uptrending plan on repeat echo and cardiology consult (4) H/O mitral valve repair: Myxomatous mitral regurgitation s/p mitral valve repair in 2012 Follows with [facility] cardiology (5) Hypertension: Continue metoprolol succinate (6) HLD (hyperlipidemia): Continue atorvastatin DVT Prophylaxis On Eliquis Full Code as per discussion with pt, however reports would not want prolonged life support if poor prognosis Follows with Dr Pancho Lovell for routine care Likely discharge tomorrow Total Time Total Time Spent Total Time Spent (In Minutes): 35 minutes Discharge Plan Discharge Items Patient Disposition: Home - Self-Care Reason For Visit: AFIB RVR Discharge Diagnosis: Atrial fibrillation with RVR, Activity: Resume your previous activity Non-emergency contact: Primary Care Provider Call non-emergency contact if: you have any medication questions and your symptoms worsen Follow-up/Referrals: Davi Kaur MD [Primary Care Provider] - (Date & Time 08/31/2023 9:40 AM Provider BOYD Bishop Department Family Practice [facility] ) Diet: Heart Healthy Addtl Attending Provider Instructions: Please take precautions to avoid falls No change in your current medications Please give appointment with your healthcare provider Follow the isolation instruction as per the guidelines below: Home Isolation COVID-19 Instructions The following information about Home Isolation is from the CDC Website: https://www.cdc.gov/coronavirus/2019-ncov/hcp/eiqpdkiz-ubevxlr-xzwzhj.html Stay home except to get medical care People who are mildly ill with COVID-19 are able to isolate at home during their illness. You should restrict activities outside your home, except for getting medical care. Do not go to work, school, or public areas. Avoid using public transportation, ride-sharing, or taxis. Separate yourself from other people and animals in your home People: As much as possible, you should stay in a specific room and away from other people in your home. Also, you should use a separate bathroom, if available. Animals: You should restrict contact with pets and other animals while you are sick with COVID-19, just like you would around other people. Although there have not been reports of pets or other animals becoming sick with COVID-19, it is still recommended that people sick with COVID-19 limit contact with animals until more information is known about the virus. When possible, have another member of your household care for your animals while you are sick. If you are sick with COVID-19, avoid contact with your pet, including petting, snuggling, being kissed or licked, and sharing food. If you must care for your pet or be around animals while you are sick, wash your hands before and after you interact with pets and wear a face mask. Call ahead before visiting your doctor If you have a medical appointment, call the healthcare provider and tell them that you have or may have COVID-19. This will help the healthcare providers office take steps to keep other people from getting infected or exposed. Wear a face mask You should wear a face mask when you are around other people (e.g., sharing a room or vehicle) or pets and before you enter a healthcare providers office. If you are not able to wear a face mask (for example, because it causes trouble breathing), then people who live with you should not stay in the same room with you, or they should wear a face mask if they enter your room. Cover your coughs and sneezes Cover your mouth and nose with a tissue when you cough or sneeze. Throw used tissues in a lined trash can. Immediately wash your hands with soap and water for at least 20 seconds or, if soap and water are not available, clean your hands with an alcohol-based hand analysis director that contains at least 60% alcohol. Clean your hands often Wash your hands often with soap and water for at least 20 seconds, especially after blowing your nose, coughing, or sneezing; going to the bathroom; and before eating or preparing food. If soap and water are not readily available, use an alcohol-based hand analysis director with at least 60% alcohol, covering all surfaces of your hands and rubbing them together until they feel dry. Soap and water are the best option if hands are visibly dirty. Avoid touching your eyes, nose, and mouth with unwashed hands. Avoid sharing personal household items You should not share dishes, drinking glasses, cups, eating utensils, towels, or bedding with other people or pets in your home. After using these items, they should be washed thoroughly with soap and water. Clean all high-touch surfaces everyday High touch surfaces include counters, tabletops, doorknobs, bathroom fixtures, toilets, phones, keyboards, tablets, and bedside tables. Also, clean any surfaces that may have blood, stool, or body fluids on them. Use a household cleaning spray or wipe, according to the label instructions. Labels contain instructions for safe and effective use of the cleaning product including precautions you should take when applying the product, such as wearing gloves and making sure you have good ventilation during use of the product. Monitor your symptoms Seek prompt medical attention if your illness is worsening (e.g., difficulty breathing).Beforeseeking care, call your healthcare provider and tell them that you have, or are being evaluated for, COVID-19. Put on a face mask before you enter the facility. These steps will help the healthcare providers office to keep other people in the office or waiting room from getting infected or exposed. Ask your healthcare provider to call the local or state health department. Persons who are placed under active monitoring or facilitated self- monitoring should follow instructions provided by their local health department or occupational health professionals, as appropriate. When working with your local health department check their available hours. If you have a medical emergency and need to call 911, notify the dispatch personnel that you have, or are being evaluated for COVID-19. If possible, put on a face mask before emergency medical services arrive. Discontinuing home isolation Patients with confirmed COVID-19 should remain under home isolation precautions until the risk of secondary transmission to others is thought to be low. The decision to discontinue home isolation precautions should be made on a [id number] basis, in consultation with healthcare providers and state and local health departments. Pending Studies at Discharge: No Stand-Alone Forms: My [facility], Smoking Cessation Medications and DC Order Prescriptions: Continued atorvastatin 10 mg tablet 10 mg PO DAILY omeprazole 40 mg capsule,delayed release(DR/EC) 40 mg PO DAILY metoprolol succinate 25 mg tablet extended release 24 hr 25 mg PO DAILY Eliquis 5 mg tablet 5 mg PO BID Discharge Orders: Discharge Order (Routine); Ordered 08/25/23 Ordered By: Vandana Escalante Admission Data Admit Date/Time: 08/23/23 13:09 Attending Provider: Vandana Escalante Admit Provider: Julai Harp Primary Care Provider: Davi Kaur Other Providers: Julia Harp Other Interventions: Discharge Summary Assessment (RN) Last Done: 08/25/23 14:45
== END 2023-08-25 15:38 | disposition home or self-care (01) | DRG 178 ==
LOC: ED 10:08 → SUATTDRO 13:09 → EDINP 13:09 → 2S 22:04
DX: L89.151 Pressure ulcer of sacral region, stage 1; Z79.899 Other long term (current) drug therapy; I24.89 Other forms of acute ischemic heart disease; Z79.01 Long term (current) use of anticoagulants; U07.1 COVID-19; I45.10 Unspecified right bundle-branch block; Z88.0 Allergy status to penicillin; I10 Essential (primary) hypertension; Z98.1 Arthrodesis status; I48.19 Other persistent atrial fibrillation; N40.0 Benign prostatic hyperplasia without lower urinary tract symptoms; R79.89 Other specified abnormal findings of blood chemistry; E78.5 Hyperlipidemia, unspecified

== ENCOUNTER 2025-08-06 10:37 | Inpatient (IN) ==
--- NOTE | 2025-08-06 10:48 | Emergency Department Note ---
Impression & Plan Fall from standing, Chronic anticoagulation, Anemia, Thrombocytopenia, Acute hyponatremia, Clavicle fracture, Hematoma ED Provider Note NAME: VINCE JAMIL AGE: 75 SEX: M : 1950 ARRIVES VIA: Walk-In INFORMANT: Patient, ED PROVIDER(S): Chandan Padilla DO CHIEF COMPLAINT: fall HPI: This was not prehospital trauma/injury alert by EMS. This is a 75-year-old male with the PMHx of paroxysmal atrial fibrillation on chronic anticoagulation with apixaban, hypertension, hyperlipidemia, mitral valve repair presenting to [facility] for further evaluation of fall. Patient is accompanied by his who provide additional history. The patient states that this morning he was walking out to his woodpile when he tripped on brush that he had cut in the previous days. Patient states he fell directly onto his right shoulder. Patient did strike the right side of his head. He did not lose consciousness. Patient denies prodromal symptoms and states that this is purely a mechanical fall. Patient reports severe pain within his right shoulder. He is concerned about it being dislocated. No prior surgery or dislocation to the shoulder. Patient denies any other complaints at this time. No pain medications prior to arrival. They endorse anticoagulation with apixaban. They deny neck or back pain. They deny fever or chills. No cough or congestion. Denies chest pain or palpitations. No shortness of breath. They deny abdominal pain, nausea and vomiting. No urinary complaints. No recent changes in bowel movements. Patient denies recent changes in medications or OTC supplements. Patient offers no other complaints, today. ADDITIONAL HISTORY OBTAINED: Per HPI Chronic Medical/Social Conditions Affecting Care: Per HPI PAST MEDICAL HISTORY: See Below PAST SURGICAL HISTORY: See Below FAMILY HISTORY: See Below SOCIAL HISTORY: See Below HOME MEDICATIONS: See Below ALLERGIES: See Below VITALS: See Below PHYSICAL EXAMINATION: Primary Survey Airway: Intact Breathing: Normal, breath sounds equal bilaterally Circulation: Skin warm, distal pulses 2+, capillary refill less than 2 seconds Disability Pupils: Equal and reactive to light, 4mm, brisk GCS: 15, E = 4, V=5, M= 6 Motor Function: Moves all extremities. Sensory: No deficits Secondary Survey GEN: Well developed and well-nourished HENT: Head: No external signs of trauma. No obvious contusions, abrasions, or laceration. No raccoon eyes or helms sign. Mouth/Throat: No blood within the oral cavity. No malocclusion. Eyes: EOMI. Pupils are 4 mm, round and reactive bilaterally. Ears: TMs are intact bilaterally. no hematomas. No hemotympanum. Nose: no nasal septal hematoma. no gross deformity. Neck: C-collar in place. no midline C-spine tenderness. No step-offs. Cardiovascular: RRR. Pulses present in all 4 extremities. Pulmonary/Chest: BS equal bilaterally. no tenderness or ecchymosis. Abdomen: no tenderness or ecchymosis. Musculoskeletal: Pelvis: no instability. Back: no midline tenderness. No step-offs or deformities. Extremities: no gross deformities. tenderness to palpation with poor range of motion of the right shoulder. Tenderness over the clavicle. Extremity is neurovascularly intact. 2+ radials with brisk cap refill. no obvious deformity. Soft tissues are normal. SILT M/R/U. 5/5 AIN/PIN/U. 2+ radials with brisk capillary refill. Minimal R knee abrasion. Skin: No laceration. Knee abrasion. Neuro: No focal neurological deficits. GCS as above. Psych: Normal mood and affect. MEDICAL DECISION MAKING: Vitals: The patient is afebrile and HDS. An order was placed for continuous cardiorespiratory monitoring. I reviewed and this shows a rate of 60-80s with regular rhythm. EKG: EKG independently interpreted by me reveals rate controlled atrial fibrillation at 81 bpm. There are frequent PVCs present on the rhythm strip appears to be 3. No significant interval changes otherwise. Patient does not have any evidence of ST segment changes to suggest STEMI. Differential diagnoses include but not limited to multi-system trauma, ICH, skull fracture, spine / spinal cord injury, fracture, dislocation, traumatic abdominal injuries, solid / visceral organ injuries, MSK sprain / strain, contusion, whiplash, concussion In summary, this is a 75-year-old male who presented as an injury alert. Patient was brought into the emergency/resuscitation room by EMS. Full ATLS protocol was initiated under direction of the ED team. The history was concerning for multi-system trauma. Airway intact and self maintained, breath sounds bilateral and equal along with normal effort, circulation intact with pp in 4 extremities, GCS 15 with normal speech and sensorium and AGUIRRE. Full physical examination as above. History and secondary survey as above. Labs drawn. eFAST deferred for WBCT as the patient has no abdominal/chest complaints, evidence of trauma in these areas or hemodynamic instability. Collar placed on arrival. Pt was not given tetanus. Initial/stabilizing treatments include Pain control medications. Imaging performed and reviewed as above. Patient was taken to the CT suite. Labs were independently interpreted by me as chronic anemia and thrombocytopenia. Does have acute on chronic hyponatremia. Given the patient's coagulopathy and chronic anticoagulation, I am concerned about the patient's propensity very for worsening bleeding. CTH independently interpreted by me reveals no evidence of ICH. No significant hydrocephalus. No major skull fractures. CTH does not demonstrate findings to suggest an etiology of the patient's symptoms or presentation, today. CT C-spine did not reveal any acute fracture or dislocation of the neck. However, there is a comminuted and displaced clavicle fracture with subsequent hematoma. On reevaluation, the patient had an expanding hematoma superior to the right clavicle into the neck. Given these findings and anticoagulation, plan for CTA imaging. The patient's cervical collar was removed today. The patient's imaging was reviewed and the CT C-Spine was negative for acute injury. The patient was alert and oriented prior to his/her exam. On exam, he/she was non-tender to palpation midline and had full ROM without any neurologic deficits. The patient tolerated this procedure well. Collar removed. We considered escalation of care regarding this patient given traumatic injuries. There is no active extravasation on CTA imaging therefore no interventions are required. Do feel the patient is appropriate to stay at this hospital given isolated injury to the clavicle with subsequent hematoma. Patient was agreeable to this and prefers not to be transferred. The patient's complex injuries include fall from standing leading to comminuted clavicular fracture on the right with subsequent large hematoma. Based on the patient's age, code existing illnesses, exam and lab findings, the decision to treat as an inpatient was made. given the patient's coagulopathy and chronic anticoagulation, I do recommend admission for observation of hematoma. Size of hematoma will need to be closely observed. Can apply compression if worsening. I recommend holding anticoagulation at this time. Last dose of Eliquis was this morning. Patient was discussed with orthopedic surgery as well as vascular surgery. Vascular surgery (paged at [phone], discussion held at [phone]). stated since there is no active extra of on the patient's CTA imaging and this is likely venous, that no intervention is necessary besides compression and ice. Orthopedic surgery (discussed at 1300 and updated throughout course) does not recommend operative repair at this time. Patient will be discussed with the hospitalist team for admission. To admit this patient at 1413. Patient was discussed with Sarah of the hospitalist service and subsequently admitted to Dr. Zuñiga's service. Past Med/Surg History Problem List (Updated 08/06/25 @ 14:30 by Chandan Padilla DO) Hematoma (Acute) Clavicle fracture (Acute) Acute hyponatremia (Acute) Thrombocytopenia (Acute) Anemia (Acute) Chronic anticoagulation (Acute) Fall from standing (Acute) Right clavicle fracture Fall Bilateral hip joint arthritis Greater trochanteric bursitis of both hips COVID-19 (Acute) Weakness (Acute) COVID-19 (Acute) Headache (Acute) Cough (Acute) Atrial fibrillation with rapid ventricular response (Acute) Elevated troponin H/O mitral valve repair Atrial fibrillation with RVR COVID-19 Lumbar spondylosis Degenerative joint disease of right hip Trochanteric bursitis, right hip Renal lesion Small bowel obstruction (Acute) Renal neoplasm Diverticulosis of jejunum without diverticulitis SBO (small bowel obstruction) Glaucoma (Chronic) Hypertension (Chronic) HLD (hyperlipidemia) (Chronic) Medical History Pressure injury of sacral region, stage 1 Cervical vertebral fusion Tubulovillous adenoma of colon Cervical myelopathy Colon polyps Tortuous colon BPH loc w urin obs/LUTS Intracerebral hemorrhage Subdural hematoma CHI (closed head injury) 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 History of rectal abscess Mitral regurgitation Diverticulosis Surgical History H/O excision of lamina of cervical vertebra for decompression of spinal cord History of esophagogastroduodenoscopy (EGD) History of incision and drainage History of cholecystectomy H/O colonoscopy Family History Mother Cancer Father Cancer Social History Smoking Status: Never smoker Hx Alcohol Use: No Hx Substance Use: No Preferred Language: Chinese Communication Ability: Effective Visual Impairment: No Limitations Hearing Ability: Normal [employer] Required: No Beliefs That Will Affect Care: None marital status: Current Living Situation: Spouse current occupational status: employed Feels Safe at Home: Yes Diet: regular caffeine: Yes during the past year weight has: decreased > 10 lbs Do you think of yourself as: straight/heterosexual Gender Identity: Male Assistive Devices: None Allergies Allergies Allergy/AdvReac Type Severity Reaction Status Date / Time Penicillins Allergy Mild rash Verified 06/04/25 13:14 Home Meds Home Medications Medication Instructions Recorded Confirmed apixaban 5 mg tablet (Eliquis) 5 mg PO BID 08/23/23 08/06/25 atorvastatin 10 mg tablet 10 mg PO DAILY 08/23/23 08/06/25 metoprolol succinate 25 mg 25 mg PO DAILY 08/23/23 08/06/25 tablet,extended release 24 hr carbidopa 25 mg-levodopa 100 mg 1.5 tab PO TID 08/06/25 08/06/25 tablet furosemide 20 mg tablet 20 mg PO QAM 08/06/25 08/06/25 Results & Data (ED) Vital Signs Vital Signs - 24 hr 08/06/25 10:41 08/06/25 11:16 08/06/25 11:16 Temperature 36.4 C L Temperature Source Temporal Artery Scan Pulse Rate 64 Pulse Rate [Apical] 80 Pulse Rhythm [Apical] Pulse Strength [Apical] Respiratory Rate 18 18 Respiratory Effort / Characteristics Respiratory Depth Respiratory Pattern Blood Pressure 139/62 Blood Pressure [Left Arm] 138/68 Blood Pressure Mean 87 Blood Pressure Mean [Left Arm] 91 Blood Pressure Position [Left Arm] Pulse Oximetry 99 98 Oxygen Delivery Method Room Air Room Air Room Air Oxygen Flow Rate Sepsis New/Unexplained Change in Mental Status No Sepsis Action Taken by Nursing No Action Required 08/06/25 12:00 08/06/25 13:14 08/06/25 13:30 Temperature 36.6 C 36.9 C Temperature Source Oral Pulse Rate 83 81 Pulse Rate [Apical] 80 Pulse Rhythm [Apical] Regular Pulse Strength [Apical] Normal Respiratory Rate 14 18 17 Respiratory Effort / Characteristics Non-Labored Respiratory Depth Normal Respiratory Pattern Regular Blood Pressure 125/73 130/67 Blood Pressure [Left Arm] 125/81 Blood Pressure Mean 88 Blood Pressure Mean [Left Arm] 95 Blood Pressure Position [Left Arm] Lying Pulse Oximetry 96 99 98 Oxygen Delivery Method Room Air Room Air Room Air Oxygen Flow Rate 0 Sepsis New/Unexplained Change in Mental Status Sepsis Action Taken by Nursing Laboratory Data 08/06/25 11:06 08/06/25 11:06 Lab Results 08/06/25 Range/Units 11:06 WBC 5.60 (4.8-10.8) K/ul RBC 3.99 L (4.70-6.10) M/uL Hgb 13.0 L (14.0-18.0) g/dl Hct 36.8 L (42.0-52.0) % MCV 92.2 (80.0-100.0) fL MCH 32.6 (25.0-34.0) pg MCHC 35.3 (32.0-36.0) g/dL RDW Std Deviation 43.1 (36.4-46.3) fL RDW Coeff of Rudi 12.8 (11.5-14.5) % Plt Count 123 L (130-400) K/uL MPV 10.6 (9.4-12.4) fL Immature Gran % (Auto) 0.7 % Neut % (Auto) 64.0 % Lymph % (Auto) 22.1 % Jewell % (Auto) 9.6 % Eos % (Auto) 2.7 % Baso % (Auto) 0.9 % Neut # (Auto) 3.58 (1.40-6.50) K/uL Lymph # (Auto) 1.24 (1.20-3.40) K/uL Jewell # (Auto) 0.54 (0.11-0.59) K/uL Eos # (Auto) 0.15 (0.00-0.50) K/uL Baso # (Auto) 0.05 (0.00-0.20) K/uL Immature Gran # (Auto) 0.04 (0.01-0.20) K/uL PT 12.7 H (9.0-12.0) Seconds INR 1.2 H (0.9-1.1) APTT 32 H (21-31) Seconds PTT Ratio 1.2 Sodium 129 L (136-145) mmol/L Potassium 4.0 (3.5-5.1) mmol/L Chloride 94 L (98-107) mmol/L Carbon Dioxide 29 (21-32) mmol/L Anion Gap 6 (3-11) BUN 14 (6-23) mg/dl Creatinine 0.69 (0.6-1.4) mg/dl Est Cr Clr Drug Dosing Not Reportable eGFR 95.31 BUN/Creatinine Ratio 20.3 H (10-20) Glucose 93 (70-99(Fasting)) mg/dl Calcium 9.3 (8.6-10.3) mg/dl Total Bilirubin 1.1 H (0.2-1.0) mg/dl AST 24 (13-39) U/L ALT 7 (7-52) U/L Alkaline Phosphatase 70 (34-104) U/L Total Protein 6.7 (6.0-8.3) gm/dl Albumin 4.3 (3.4-5.0) gm/dl Globulin 2.4 L (2.5-4.0) gm/dl Albumin/Globulin Ratio 1.8 (0.9-2) Lipase 28 (11-82) U/L Administered Medications Discontinued Medications Fentanyl Citrate (Fentanyl Citrate Pf 100 Mcg/2 Ml Vial) 50 mcg IV NOW STA Stop: 08/06/25 10:53 Last Admin: 08/06/25 11:07 Dose: 50 mcg Documented By: JACINTA Ioversol (Optiray 320 125ml) 112 ml IV ONCE ONE Stop: 08/06/25 13:14 Last Admin: 08/06/25 13:13 Dose: 112 ml Documented By: MAURA Imaging Data Radiologist's Impression: Cervical Spine CT 08/06/25 10:52 CT cervical spine wo con CT DOSE: 1235.47 mGy.cm CLINICAL HISTORY: 75 years-old Male with Trauma. Acute neck trauma status post COMPARISON: Head CT same day TECHNIQUE: Multiple axial CT images of the cervical spine were obtained without contrast. A dose lowering technique was utilized adhering to the principles of ALARA. FINDINGS: Demineralized appearance of the bones. Multilevel degenerative changes include moderate disc space narrowing with degenerative partial bony fusion at C5-C6 and C6-C7. Posterior interbody cristian and screw fusion hardware and posterior decompression is noted at C3-C6. No evidence of hardware fracture or definite loosening. No acute fracture or subluxation identified. Multilevel neural foraminal narrowing. Acute, comminuted, angled and displaced partially imaged mid right clavicular fracture with adjacent edema and 6 cm hematoma. Median sternotomy wires are present. The visualized lung apices appear clear. IMPRESSION: 1. No acute cervical spine fracture or subluxation identified. 2. Partially imaged acute, comminuted, angulated and displaced right clavicular fracture with adjacent hematoma. 3. Degenerative and postoperative changes as above. ACT 112: Negative or not required by law. The above report was generated using voice recognition software. It may contain grammatical, syntax or spelling errors. Electronically signed by: Arthur De Los Santos M.D. 08/06/2025 12:25 PM Chest X-Ray 08/06/25 10:52 XR chest 1V not portable CLINICAL HISTORY: Trauma COMPARISON STUDY: 08/23/2023 FINDINGS: Stable cardiac valve repair. Heart size and pulmonary vasculature are normal. No consolidation or pleural effusion. No pneumothorax. There is an acute fracture at the right clavicle. IMPRESSION: Acute fracture at the right clavicle with no pneumothorax. ACT 112: Negative or not required by law. Electronically signed by: Zak Lion M.D. 08/06/2025 2:[address] 08/06/25 10:52 CT head/brain wo con CLINICAL HISTORY: trauma. TECHNIQUE: Multiple axial CT images of the head were obtained without contrast. A dose lowering technique was utilized adhering to the principles of ALARA. CT DOSE: 1235 COMPARISON: 10/30/2023 FINDINGS: No intracranial hemorrhage seen. No mass effect, midline shift, or hydrocephalus. No skull fracture seen. Visualized paranasal sinuses and mastoid air cells are clear. IMPRESSION: No acute findings. ACT 112: Negative or not required by law. The above report was generated using voice recognition software. It may contain grammatical, syntax or spelling errors. Electronically signed by: Zak Lion M.D. 08/06/2025 12:18 PM Humerus X-Ray 08/06/25 10:52 XR shoulder RT min 2V routine, XR humerus RT 2V CLINICAL HISTORY: fall COMPARISON: None FINDINGS: There is an acute mildly comminuted mildly displaced fracture at the mid to distal shaft of the right clavicle. No other fracture or dislocation seen at the right shoulder or right humerus. IMPRESSION: Acute fracture at the right clavicle. ACT 112: Negative or not required by law. Electronically signed by: Zak Lion M.D. 08/06/2025 2:15 PM Pelvis X-Ray 08/06/25 10:52 XR pelvis 1-2V routine CLINICAL HISTORY: Trauma COMPARISON: None FINDINGS: No fracture or dislocation seen. IMPRESSION: No fracture seen. ACT 112: Negative or not required by law. Electronically signed by: Zak Lion M.D. 08/06/2025 2:14 PM Shoulder X-Ray 08/06/25 10:52 XR shoulder RT min 2V routine, XR humerus RT 2V CLINICAL HISTORY: fall COMPARISON: None FINDINGS: There is an acute mildly comminuted mildly displaced fracture at the mid to distal shaft of the right clavicle. No other fracture or dislocation seen at the right shoulder or right humerus. IMPRESSION: Acute fracture at the right clavicle. ACT 112: Negative or not required by law. Electronically signed by: Zak Lion M.D. 08/06/2025 2:15 PM Chest CTA 08/06/25 12:54 CT angio chest w con CT DOSE: 452.12 mGy.cm HISTORY: 75 years-old Male with R clavicle fracture with large expanding hematoma. Acute right chest wall pain status post trauma TECHNIQUE: Multiple CTA images of the chest were obtained after the intravenous administration of 112 ml Optiray. Coronal and sagittal MIPS were obtained from the axial data set and were submitted for review. All measurements were obtained according to NASCET criteria. A dose lowering technique was utilized adhering to the principles of ALARA. COMPARISON: CT abdomen and pelvis 10/30/2023 FINDINGS: CTA: Cardiomegaly with prosthetic mitral valve. Mild coronary artery calcifications. Median sternotomy. Mild fusiform dilation of the ascending thoracic aorta, 4.0 x 4.0 cm without dissection. Patent imaged great vessels. No pulmonary emboli identified. CT CHEST: Acute, comminuted, angulated, displaced and foreshortened fracture involves the mid to distal third of the right clavicle. There is adjacent deep tissue edema with 11 cm hematoma. No areas of active extravasation identified. Hematoma compresses the adjacent internal jugular vein. Partially imaged large lipoma in the left upper arm measures over 8 cm. No additional acute fracture identified. Degenerative changes of the shoulders and spine. No dominant thyroid nodule. No lymphadenopathy. Nonspecific right hilar lymph nodes measure up to 8 mm. No pneumothorax, pleural effusion or overt pulmonary edema. No suspicious pulmonary nodules or masses. Subsegmental dependent right basilar atelectasis. No acute upper abdominal abnormality. Left renal cysts are present. Postoperative changes are noted within the upper abdominal bowel loop. IMPRESSION: 1. Acute, comminuted, angulated, displaced and foreshortened right clavicular fracture with adjacent 11 cm hematoma extends into the supraclavicular tissues. No active extravasation. 2. No mild dilation of the ascending thoracic aorta measures 4 cm. Otherwise unremarkable CTA component of the study 3. No pneumothorax. ACT 112: Negative or not required by law. The above report was generated using voice recognition software. It may contain grammatical, syntax or spelling errors. Electronically signed by: Arthur De Los Santos M.D. 08/06/2025 1:41 PM Discharge Plan Visit Data Chief Complaint: Trauma Stated Complaint: FALL, R SHOULDER INJURY ED Provider: Chandan Padilla Discharge Problem: Fall from standing, Chronic anticoagulation, Anemia, Thrombocytopenia, Acute hyponatremia, Clavicle fracture, Hematoma Patient Disposition: Admitted As Inpatient Condition: Serious Forms Stand Alone Forms: [facility], Important Visit Information Prescriptions Prescriptions: No Action atorvastatin 10 mg tablet 10 mg PO DAILY metoprolol succinate 25 mg tablet extended release 24 hr 25 mg PO DAILY Eliquis 5 mg tablet 5 mg PO BID furosemide 20 mg tablet 20 mg PO QAM carbidopa-levodopa 25-100 mg tablet 1.5 tab PO TID Referrals Referrals: Davi Kaur MD [Primary Care Provider] -
[2025-08-06 11:37] LABS: Hematocrit (blood only) 36.8 % (42.0-52.0); Hemoglobin 13.0 g/dl (14.0-18.0); Immature Granulocytes # (auto) 0.04 K/uL (0.01-0.20); Immature Granulocytes % (auto) 0.7 %; Mean Corpuscular Hemoglobin 32.6 pg (25.0-34.0); Mean Corpuscular Volume 92.2 fL (80.0-100.0); Platelet Count 123 K/uL (130-400); RDW Standard Deviation 43.1 fL (36.4-46.3); Red Blood Count 3.99 M/uL (4.70-6.10); White Blood Count 5.60 K/ul (4.8-10.8)
[2025-08-06 11:55] LABS: Alanine Aminotransferase 7 U/L (7-52); Albumin Globulin Ratio 1.8 (0.9-2); Albumin Level 4.3 gm/dl (3.4-5.0); Alkaline Phosphatase 70 U/L (34-104); Anion Gap 6 (3-11); Bilirubin,Total 1.1 mg/dl (0.2-1.0); Blood Urea Nitrogen 14 mg/dl (6-23); Calcium 9.3 mg/dl (8.6-10.3); Carbon Dioxide 29 mmol/L (21-32); Chloride 94 mmol/L (98-107); Globulin 2.4 gm/dl (2.5-4.0); Glucose 93 mg/dl (70-99(Fasting)); Lipase 28 U/L (11-82); Potassium 4.0 mmol/L (3.5-5.1); Sodium 129 mmol/L (136-145); Total Protein 6.7 gm/dl (6.0-8.3)
--- NOTE | 2025-08-06 12:19 | CT Scan Report ---
CT head/brain wo con CLINICAL HISTORY: trauma. TECHNIQUE: Multiple axial CT images of the head were obtained without contrast. A dose lowering tech nique was utilized adhering to the principles of ALARA. CT DOSE: 1235 COMPARISON: 10/30/2023 FINDINGS: No intracranial hemorrhage seen. No mass effect, midline shift, or hydrocephalus. No skull fracture seen. Visualized paranasal sinuses and mastoid air cells are clear. IMPRESSION: No acute findings. ACT 112: Negative or not required by law. The above report was generated using voice recognition software. It may contain grammatical, syntax o r spelling errors. Electronically signed by: Zak Lion M.D. 08/06/2025 12:18 PM
--- NOTE | 2025-08-06 12:26 | CT Scan Report ---
CT cervical spine wo con CT DOSE: 1235.47 mGy.cm CLINICAL HISTORY: 75 years-old Male with Trauma. Acute neck trauma status post COMPARISON: Head CT same day TECHNIQUE: Multiple axial CT images of the cervical spine were obtained without contrast. A dose low ering technique was utilized adhering to the principles of ALARA. FINDINGS: Demineralized appearance of the bones. Multilevel degenerative changes include moderate dis c space narrowing with degenerative partial bony fusion at C5-C6 and C6-C7. Posterior interbody cristian a nd screw fusion hardware and posterior decompression is noted at C3-C6. No evidence of hardware fract ure or definite loosening. No acute fracture or subluxation identified. Multilevel neural foraminal n arrowing. Acute, comminuted, angled and displaced partially imaged mid right clavicular fracture with adjacent edema and 6 cm hematoma. Median sternotomy wires are present. The visualized lung apices appear clear . IMPRESSION: 1. No acute cervical spine fracture or subluxation identified. 2. Partially imaged acute, comminuted, angulated and displaced right clavicular fracture with adjacen t hematoma. 3. Degenerative and postoperative changes as above. ACT 112: Negative or not required by law. The above report was generated using voice recognition software. It may contain grammatical, syntax o r spelling errors. Electronically signed by: Arthur De Los Santos M.D. 08/06/2025 12:25 PM
[2025-08-06 12:30] LABS: INR 1.2 (0.9-1.1); Partial Thromboplastin Time 32 Seconds (21-31); Prothrombin Time 12.7 Seconds (9.0-12.0)
[2025-08-06] MEDS: OPTIRAY 320 125ml IV ONE (13:13)
--- NOTE | 2025-08-06 13:43 | CT Scan Report ---
CT angio chest w con CT DOSE: 452.12 mGy.cm HISTORY: 75 years-old Male with R clavicle fracture with large expanding hematoma. Acute right ches t wall pain status post trauma TECHNIQUE: Multiple CTA images of the chest were obtained after the intravenous administration of 112 ml Optiray. Coronal and sagittal MIPS were obtained from the axial data set and were submitted for review. All measurements were obtained according to NASCET criteria. A dose lowering technique was u tilized adhering to the principles of ALARA. COMPARISON: CT abdomen and pelvis 10/30/2023 FINDINGS: CTA: Cardiomegaly with prosthetic mitral valve. Mild coronary artery calcifications. Median sternotomy. Mi ld fusiform dilation of the ascending thoracic aorta, 4.0 x 4.0 cm without dissection. Patent imaged great vessels. No pulmonary emboli identified. CT CHEST: Acute, comminuted, angulated, displaced and foreshortened fracture involves the mid to distal third o f the right clavicle. There is adjacent deep tissue edema with 11 cm hematoma. No areas of active ext ravasation identified. Hematoma compresses the adjacent internal jugular vein. Partially imaged large lipoma in the left upper arm measures over 8 cm. No additional acute fracture identified. Degenerati ve changes of the shoulders and spine. No dominant thyroid nodule. No lymphadenopathy. Nonspecific right hilar lymph nodes measure up to 8 m m. No pneumothorax, pleural effusion or overt pulmonary edema. No suspicious pulmonary nodules or mas ses. Subsegmental dependent right basilar atelectasis. No acute upper abdominal abnormality. Left toby al cysts are present. Postoperative changes are noted within the upper abdominal bowel loop. IMPRESSION: 1. Acute, comminuted, angulated, displaced and foreshortened right clavicular fracture with adjacent 11 cm hematoma extends into the supraclavicular tissues. No active extravasation. 2. No mild dilation of the ascending thoracic aorta measures 4 cm. Otherwise unremarkable CTA compone nt of the study 3. No pneumothorax. ACT 112: Negative or not required by law. The above report was generated using voice recognition software. It may contain grammatical, syntax o r spelling errors. Electronically signed by: Arthur De Los Santos M.D. 08/06/2025 1:41 PM
--- NOTE | 2025-08-06 14:15 | XRay Report ---
XR pelvis 1-2V routine CLINICAL HISTORY: Trauma COMPARISON: None FINDINGS: No fracture or dislocation seen. IMPRESSION: No fracture seen. ACT 112: Negative or not required by law. Electronically signed by: Zak Lion M.D. 08/06/2025 2:14 PM
--- NOTE | 2025-08-06 14:16 | XRay Report ---
XR shoulder RT min 2V routine, XR humerus RT 2V CLINICAL HISTORY: fall COMPARISON: None FINDINGS: There is an acute mildly comminuted mildly displaced fracture at the mid to distal shaft o f the right clavicle. No other fracture or dislocation seen at the right shoulder or right humerus. IMPRESSION: Acute fracture at the right clavicle. ACT 112: Negative or not required by law. Electronically signed by: Zak Lion M.D. 08/06/2025 2:15 PM
--- NOTE | 2025-08-06 14:20 | History & Physical Report ---
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, history of right lower extremity/right iliac vein/right common femoral DVT s/p cardiac catheterization prior to mitral valve repair operation with documented resolution on duplex s/p treatment with Coumadin, mild aortic root/proximal ascending aorta dilatation, HTN, history of traumatic subdural hematoma in 2017, cervical myelopathy s/p C3-C6 posterior cervical decompression, 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 Chest CTA: Acute, comminuted, angulated, displaced and foreshortened right c lavicular fracture with adjacent 11cm hematoma extends into the supraclavicular tissues. No active extravasation. Additional trauma imaging including cervical spine CT, CXR, head CT, pelvis XR, R humerus XR and R shoulder XR otherwise grossly unremarkable. #Right clavicular fracture with adjacent 11 cm hematoma s/p mechanical fall Appreciate ortho consult No urgent surgical intervention per discussion between ED provider and on-call ortho surgeon, Dr. John Hold Eliquis given hematoma formation -Monitor H/H Q6H for now -Currently saturating on RA with no evidence of airway compromise -RUE neurovascularly intact on exam PRN analgesia Activity restrictions as per ortho -For now will focus on RUE immobilization until otherwise outlined Will tentatively keep NPO at MN pending ortho eval #Acute hyponatremia Sodium previously within normal range per outpatient chart review Check serum osmolality, urine osmolality and urine sodium for further evaluation Repeat sodium level this evening around 5PM, continue to monitor #Persistent atrial fibrillation Holding Eliquis for now as outlined above Rate-controlled, continue BB #Parkinson's disease 3-4 reported mechanical falls over the past 3 months (increasing frequency per pt's ) Does not use assistive devices for ambulation at baseline Appreciate PT/OT evaluation to assist mobility status #Chronic systolic CHF Trace bilateral pedal edema on exam which is unchanged from baseline per pt's (present >3mo) Will hold Lasix for now and reassess volume status in AM #HLD #Nonobstructive CAD Continue statin #Mild aortic root/proximal ascending aorta dilatation Prior diagnosis Mild fusiform dilation of the ascending thoracic aorta, 4.0 x 4.0 cm without dissection noted on chest CTA TTE, 01/2025: mildly enlarged proximal ascending thoracic aorta #Myxomatous mitral valve disease with severe mitral regurgitation s/p complex mitral valve repair in January 2013 Follows with [facility] cardiology, Dr. Colbert TTE, 01/2025: LVEF = 55-59%, severely enlarged LA (c/w pt's h/o atrial fibrillation), mild MR/TR DVT Prophylaxis: Eliquis on hold, SCDs/TEDs only for now ISO above Code Status: FULL CODE PCP: Davi Kaur MD Disposition: Admit to med/telemetry Patient seen in collaboration with Dr. Zuñiga. Please see addendum. I spent a total of 60 minutes coordinating, documenting, and providing care for this patient excluding time spent in the performance of separately billed services or time spent by another provider/QHP. This included personally reviewing all current laboratories and imaging studies, medical reconciliation, outpatient chart review and discussion with specialists. This chart was completed in part utilizing Speech Voice Recognition Software. Grammatical errors, random word insertions, pronoun errors, and incomplete sentences are an occasional consequence of this system due to software limitations, ambient noise, and hardware issues. Any formal questions or concerns about the content, text, or information contained within the body of this dictation should be directly addressed to the provider for clarification. 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 s/p complex mitral valve repair in January 2013, history of right lower extremity/right iliac vein/right common femoral DVT s/p cardiac catheterization prior to mitral valve repair operation with documented re solution on duplex s/p treatment with Coumadin, mild aortic root/proximal ascending aorta dilatation, HTN, history of traumatic subdural hematoma in 2017, cervical myelopathy s/p C3-C6 posterior cervical decompression, history of jejunal diverticulitis s/p laparoscopic small bowel resection, persistent atrial fibrillation anticoagulated on Eliquis, chronic systolic CHF, venous stasis dermatitis of both lower extremities, BPH with LUTS, left renal mass, FAZAL and Parkinson's disease who presented to the ED with complaint of right shoulder pain s/p mechanical fall at home. History obtained from the patient, patient's at bedside, discussion with ED provider and associated chart review. Sustained mechanical fall while outside stacking wood piles behind his house. Notes he tripped over the tall grass and weeds. Denies any prodromal symptoms. No LOC. Landed on right side, primarily right shoulder and right side of face. Significant right shoulder pain s/p fall. Was able to get up off the ground on his own and call his to bring him to the ED. Denies any chest pain or SOB. No reported right upper extremity paraesthesias or loss of tactile sensation. Able to flex and extend the right elbow however it is limited by pain and discomfort. No smoking history. Former alcohol use, quit >20 years ago. No recreational drug use. Has sustained about 3 or 4 falls in the past 3 months. History of Parkinson's disease. Does not use any assistive devices for ambulation at baseline. Allergies Allergy/AdvReac Type Severity Reaction Status Date / Time Penicillins Allergy Mild rash Verified 06/04/25 13:14 Home Medications Medication Instructions Recorded Confirmed Type apixaban 5 mg tablet (Eliquis) 5 mg PO BID 08/23/23 08/06/25 History atorvastatin 10 mg tablet 10 mg PO DAILY 08/23/23 08/06/25 History metoprolol succinate 25 mg 25 mg PO HS 08/23/23 08/06/25 History tablet,extended release 24 hr carbidopa 25 mg-levodopa 100 mg 1.5 tab PO TID 08/06/25 08/06/25 History tablet furosemide 20 mg tablet 20 mg PO QAM 08/06/25 08/06/25 History Past Med/Surg History Problem List (Updated 08/06/25 @ 15:52 by Sarah Nguyen PA-C) Hyponatremia Hematoma (Acute) Clavicle fracture (Acute) Acute hyponatremia (Acute) Thrombocytopenia (Acute) Anemia (Acute) Chronic anticoagulation (Acute) Fall from standing (Acute) Right clavicle fracture Fall Bilateral hip joint arthritis Greater trochanteric bursitis of both hips COVID-19 (Acute) Weakness (Acute) COVID-19 (Acute) Headache (Acute) Cough (Acute) Atrial fibrillation with rapid ventricular response (Acute) Elevated troponin H/O mitral valve repair Atrial fibrillation with RVR COVID-19 Lumbar spondylosis Degenerative joint disease of right hip Trochanteric bursitis, right hip Renal lesion Small bowel obstruction (Acute) Renal neoplasm Diverticulosis of jejunum without diverticulitis SBO (small bowel obstruction) Glaucoma (Chronic) Hypertension (Chronic) HLD (hyperlipidemia) (Chronic) Medical History Pressure injury of sacral region, stage 1 Cervical vertebral fusion Tubulovillous adenoma of colon Cervical myelopathy Colon polyps Tortuous colon BPH loc w urin obs/LUTS Intracerebral hemorrhage Subdural hematoma CHI (closed head injury) 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 History of rectal abscess Mitral regurgitation Diverticulosis Surgical History H/O excision of lamina of cervical vertebra for decompression of spinal cord History of esophagogastroduodenoscopy (EGD) History of incision and drainage History of cholecystectomy H/O colonoscopy Family History Mother Cancer Father Cancer Social History Smoking Status: Never smoker Hx Alcohol Use: No Hx Substance Use: No Preferred Language: Telugu Communication Ability: Effective Visual Impairment: No Limitations Hearing Ability: Normal Compound Specialist Required: No Beliefs That Will Affect Care: None marital status: Current Living Situation: Spouse current occupational status: employed Other Information That Helps Us Care for You: No Feels Safe at Home: Yes Safety Concerns: Feels Safe At This Time Diet: regular caffeine: Yes during the past year weight has: decreased > 10 lbs Do you think of yourself as: straight/heterosexual Gender Identity: Male Assistive Devices: None Review of Systems Review of Systems: At least ten systems reviewed and negative, except as noted in the HPI. Physical Exam Physical Exam: General: Thin elderly M, NAD, sitting up in bed, A&Ox3, at bedside HEENT: Normocephalic, atraumatic, moist mucous membranes Respiratory: Normal respiratory effort, CTAB Cardiovascular: Irregularly irregular rhythm, regular rate, trace bilateral pedal edema Abdomen/GI: Normal bowel sounds, soft, nontender to palpation in all quadrants Extremities/Musculoskeletal: No cyanosis or clubbing, mild edema R clavicular region with overlying hematoma formation which is quite TTP, able to flex/extend at R elbow but is limited 2/2 pain, RUE tactile sensation intact, + R radial pulse, R hand junior paralegal strength 5/5 Neurologic: No overt focal deficits, CN's II-XI not formally tested but appear grossly intact bilaterally Results & Data Results & Data Vital Signs (Past 12 Hours) Vital Signs Temp Pulse Pulse Resp BP BP Pulse Ox 08/06/25 13:30 81 17 130/67 98 08/06/25 13:14 36.9 C 83 18 125/73 99 08/06/25 12:00 36.6 C 80 14 125/81 96 08/06/25 11:16 08/06/25 11:16 80 18 138/68 98 08/06/25 10:41 36.4 C L 64 18 139/62 99 O2 Del Method O2 Flow Rate 08/06/25 13:30 Room Air 08/06/25 13:14 Room Air 0 08/06/25 12:00 Room Air 08/06/25 11:16 Room Air 08/06/25 11:16 Room Air 08/06/25 10:41 Room Air Laboratory Results Short CBC 08/06/25 Range/Units 11:06 WBC 5.60 (4.8-10.8) K/ul Hgb 13.0 L (14.0-18.0) g/dl Hct 36.8 L (42.0-52.0) % Plt Count 123 L (130-400) K/uL BMP 08/06/25 11:06 Sodium 129 L Potassium 4.0 Chloride 94 L Carbon Dioxide 29 BUN 14 Creatinine 0.69 Glucose 93 Calcium 9.3 Liver Function 08/06/25 Range/Units 11:06 Total Bilirubin 1.1 H (0.2-1.0) mg/dl AST 24 (13-39) U/L ALT 7 (7-52) U/L Alkaline Phosphatase 70 (34-104) U/L Albumin 4.3 (3.4-5.0) gm/dl Diagnostic Findings Cervical Spine CT 08/06/25 10:52 CT cervical spine wo con CT DOSE: 1235.47 mGy.cm CLINICAL HISTORY: 75 years-old Male with Trauma. Acute neck trauma status post COMPARISON: Head CT same day TECHNIQUE: Multiple axial CT images of the cervical spine were obtained without contrast. A dose lowering technique was utilized adhering to the principles of ALARA. FINDINGS: Demineralized appearance of the bones. Multilevel degenerative changes include moderate disc space narrowing with degenerative partial bony fusion at C5-C6 and C6-C7. Posterior interbody cristian and screw fusion hardware and posterior decompression is noted at C3-C6. No evidence of hardware fracture or definite loosening. No acute fracture or subluxation identified. Multilevel neural foraminal narrowing. Acute, comminuted, angled and displaced partially imaged mid right clavicular fracture with adjacent edema and 6 cm hematoma. Median sternotomy wires are present. The visualized lung apices appear clear. IMPRESSION: 1. No acute cervical spine fracture or subluxation identified. 2. Partially imaged acute, comminuted, angulated and displaced right clavicular fracture with adjacent hematoma. 3. Degenerative and postoperative changes as above. ACT 112: Negative or not required by law. The above report was generated using voice recognition software. It may contain grammatical, syntax or spelling errors. Electronically signed by: Arthur De Los Santos M.D. 08/06/2025 12:25 PM Chest X-Ray 08/06/25 10:52 XR chest 1V not portable CLINICAL HISTORY: Trauma COMPARISON STUDY: 08/23/2023 FINDINGS: Stable cardiac valve repair. Heart size and pulmonary vasculature are normal. No consolidation or pleural effusion. No pneumothorax. There is an acute fracture at the right clavicle. IMPRESSION: Acute fracture at the right clavicle with no pneumothorax. ACT 112: Negative or not required by law. Electronically signed by: Zak Lion M.D. 08/06/2025 2:[address] 08/06/25 10:52 CT head/brain wo con CLINICAL HISTORY: trauma. TECHNIQUE: Multiple axial CT images of the head were obtained without contrast. A dose lowering technique was utilized adhering to the principles of ALARA. CT DOSE: 1235 COMPARISON: 10/30/2023 FINDINGS: No intracranial hemorrhage seen. No mass effect, midline shift, or hydrocephalus. No skull fracture seen. Visualized paranasal sinuses and mastoid air cells are clear. IMPRESSION: No acute findings. ACT 112: Negative or not required by law. The above report was generated using voice recognition software. It may contain grammatical, syntax or spelling errors. Electronically signed by: Zak Lion M.D. 08/06/2025 12:18 PM Humerus X-Ray 08/06/25 10:52 XR shoulder RT min 2V routine, XR humerus RT 2V CLINICAL HISTORY: fall COMPARISON: None FINDINGS: There is an acute mildly comminuted mildly displaced fracture at the mid to distal shaft of the right clavicle. No other fracture or dislocation seen at the right shoulder or right humerus. IMPRESSION: Acute fracture at the right clavicle. ACT 112: Negative or not required by law. Electronically signed by: Zak Lion M.D. 08/06/2025 2:15 PM Pelvis X-Ray 08/06/25 10:52 XR pelvis 1-2V routine CLINICAL HISTORY: Trauma COMPARISON: None FINDINGS: No fracture or dislocation seen. IMPRESSION: No fracture seen. ACT 112: Negative or not required by law. Electronically signed by: Zak Lion M.D. 08/06/2025 2:14 PM Shoulder X-Ray 08/06/25 10:52 XR shoulder RT min 2V routine, XR humerus RT 2V CLINICAL HISTORY: fall COMPARISON: None FINDINGS: There is an acute mildly comminuted mildly displaced fracture at the mid to distal shaft of the right clavicle. No other fracture or dislocation seen at the right shoulder or right humerus. IMPRESSION: Acute fracture at the right clavicle. ACT 112: Negative or not required by law. Electronically signed by: Zak Lion M.D. 08/06/2025 2:15 PM Chest CTA 08/06/25 12:54 CT angio chest w con CT DOSE: 452.12 mGy.cm HISTORY: 75 years-old Male with R clavicle fracture with large expanding hematoma. Acute right chest wall pain status post trauma TECHNIQUE: Multiple CTA images of the chest were obtained after the intravenous administration of 112 ml Optiray. Coronal and sagittal MIPS were obtained from the axial data set and were submitted for review. All measurements were obtained according to NASCET criteria. A dose lowering technique was utilized adhering to the principles of ALARA. COMPARISON: CT abdomen and pelvis 10/30/2023 FINDINGS: CTA: Cardiomegaly with prosthetic mitral valve. Mild coronary artery calcifications. Median sternotomy. Mild fusiform dilation of the ascending thoracic aorta, 4.0 x 4.0 cm without dissection. Patent imaged great vessels. No pulmonary emboli identified. CT CHEST: Acute, comminuted, angulated, displaced and foreshortened fracture involves the mid to distal third of the right clavicle. There is adjacent deep tissue edema with 11 cm hematoma. No areas of active extravasation identified. Hematoma compresses the adjacent internal jugular vein. Partially imaged large lipoma in the left upper arm measures over 8 cm. No additional acute fracture identified. Degenerative changes of the shoulders and spine. No dominant thyroid nodule. No lymphadenopathy. Nonspecific right hilar lymph nodes measure up to 8 mm. No pneumothorax, pleural effusion or overt pulmonary edema. No suspicious pulmonary nodules or masses. Subsegmental dependent right basilar atelectasis. No acute upper abdominal abnormality. Left renal cysts are present. Postoperative changes are noted within the upper abdominal bowel loop. IMPRESSION: 1. Acute, comminuted, angulated, displaced and foreshortened right clavicular fracture with adjacent 11 cm hematoma extends into the supraclavicular tissues. No active extravasation. 2. No mild dilation of the ascending thoracic aorta measures 4 cm. Otherwise unremarkable CTA component of the study 3. No pneumothorax. ACT 112: Negative or not required by law. The above report was generated using voice recognition software. It may contain grammatical, syntax or spelling errors. Electronically signed by: Arthur De Los Santos M.D. 08/06/2025 1:41 PM Medications Administered Discontinued Medications Fentanyl Citrate (Fentanyl Citrate Pf 100 Mcg/2 Ml Vial) 50 mcg IV NOW STA Stop: 08/06/25 10:53 Last Admin: 08/06/25 11:07 Dose: 50 mcg Documented By: JACINTA Ioversol (Optiray 320 125ml) 112 ml IV ONCE ONE Stop: 08/06/25 13:14 Last Admin: 08/06/25 13:13 Dose: 112 ml Documented By: MAURA (1) Fall Encounter type: initial encounter Qualified Code(s): W19.XXXA - Unspecified fall, initial encounter (2) Right clavicle fracture Clavicle location: unspecified part of clavicle Encounter type: initial encounter Fracture alignment: displaced Fracture type: closed Qualified Code(s): S42.001A - Fracture of unspecified part of right clavicle, initial encounter for closed fracture
--- NOTE | 2025-08-06 14:34 | Communication Note ---
Date of Service: August 06, 2025 Attending Addendum: Case reviewed with the advanced practitioner. I have personally performed a history and physical examination on the patient. I have reviewed the advanced practitioner's documentation on the date of service referenced in note, and I agree with, and take responsibility for the plan of care. please refer to her notes for full details patient seen and examined, records reviewed by myself as well on exam, patient seen resting in bed, not in distress very pleasant states pain over R clavicle is 7/10, morphine to be given by RN no chest pain, dyspnea, palpitations, dizziness no other symptoms VS noted and reviewed oriented x 3, not in distress, speaks in sentences with no effort nor accessory muscle use normal rate, irregularly irregular rhythm, no murmurs mild edema R clavicle area, small, faint hematoma lower lateral neck, clear breath sounds bilaterally abdomen non distended, soft, nontender no bipedal edema, erythema, warmth no neuro deficits all labs, imaging noted and reviewed ASSESSMENT AND PLAN> RIGHT CLAVICULAR FRACTURE WITH HEMATOMA IN THE SETTING OF APIXABAN USE FOR CHRONIC ATRIAL FIBRILLATION S/P MECHANICAL FALL, RECURRENT FALLS, PARKIN[place] DISEASE CT angio chest: Acute, comminuted, angulated, displaced and foreshortened right clavicular fracture with adjacent 11 cm hematoma extends into the supraclavicular tissues Hg 13--> Hg q6h hold Apixaban Ortho consulted- no surgery today as per ER MD, awaiting further recommendations Pain Control HYPONATREMIA Na 129 Na q6h check serum osm, Urine osm and Na appears euvolemic, hold Lasix for today, reassess tomrrow CHRONIC ATRIAL FIBRILLATION HR controlled continue usual Metoprolol hold Apixaban other diagnoses and plan of care as per advanced practitioner's notes I spent a total of 40 minutes coordinating, documenting, and providing care for this patient, excluding time spent in the performance of separately billed services or time spent by another provider/QHP. Romario Zuñiga MD
[2025-08-06] MEDS: MoRPHine SULFATE 4 MG/ML 1 ML CARP\\VIAL IV STA (15:17)
[2025-08-06] MEDS ORDERED: MAGNESIUM HYDROXIDE SUSP 30 ML UDC PO PRN (18:22)
[2025-08-06] MEDS ORDERED: POLYETHYLENE (MIRALAX) 17 GM PACK PO PRN (18:22)
[2025-08-06] MEDS ORDERED: ACETAMINOPHEN 325 MG TAB PO PRN (18:22)
[2025-08-06] MEDS ORDERED: ONDANSETRON INJ 2 MG/ML 2 ML VIAL IV PRN (18:22)
[2025-08-06] MEDS: ACETAMINOPHEN 500 MG TAB PO SCH (18:23)
--- NOTE | 2025-08-06 19:07 | Electrocardiogram Report ---
Test Reason : Blood Pressure : */* mmHG Vent. Rate : 81 BPM Atrial Rate : * BPM P-R Int : * ms QRS Dur : 110 ms QT Int : 406 ms P-R-T Axes : * 89 -24 degrees QTcB Int : 471 ms Atrial fibrillation with premature ventricular or aberrantly conducted complexes Nonspecific ST abnormality Abnormal ECG When compared with ECG of 30-Oct-2023 14:14, No significant change was found Confirmed by Ryan Ellis ([id number]) on 08/06/2025 7:07:29 PM Referred By: REFERRED SELF Confirmed By: Ryan Ellis
[2025-08-06 20:23] LABS: Hematocrit (blood only) 32.3 % (42.0-52.0); Hemoglobin 11.6 g/dl (14.0-18.0)
[2025-08-06] MEDS: METOPROLOL SUCC 25MG EXT REL TAB PO SCH (20:45)
[2025-08-06] MEDS: CARBIDOPA/LEVODOPA 25/100MG TAB PO SCH (20:45)
[2025-08-07 00:49] LABS: Hematocrit (blood only) 34.0 % (42.0-52.0); Hemoglobin 12.1 g/dl (14.0-18.0)
[2025-08-07 06:36] LABS: Hematocrit (blood only) 32.7 % (42.0-52.0); Hemoglobin 11.5 g/dl (14.0-18.0); Mean Corpuscular Hemoglobin 32.5 pg (25.0-34.0); Mean Corpuscular Volume 92.4 fL (80.0-100.0); Platelet Count 116 K/uL (130-400); RDW Standard Deviation 43.5 fL (36.4-46.3); Red Blood Count 3.54 M/uL (4.70-6.10); White Blood Count 6.86 K/ul (4.8-10.8)
[2025-08-07 07:00] LABS: Alanine Aminotransferase 3.0 U/L (7-52); Albumin Globulin Ratio 2.2 (0.9-2); Albumin Level 3.9 gm/dl (3.4-5.0); Alkaline Phosphatase 65.0 U/L (34-104); Anion Gap 5.0 (3-11); Bilirubin,Total 1.4 mg/dl (0.2-1.0); Blood Urea Nitrogen 13.0 mg/dl (6-23); Calcium 9.0 mg/dl (8.6-10.3); Carbon Dioxide 30.0 mmol/L (21-32); Chloride 94.0 mmol/L (98-107); Creatinine Clr Calc Pharmacy 90.2 ml/min; Globulin 1.8 gm/dl (2.5-4.0); Glucose 84.0 mg/dl (70-99(Fasting)); Potassium 4.1 mmol/L (3.5-5.1); Sodium 129.0 mmol/L (136-145); Total Protein 5.7 gm/dl (6.0-8.3)
[2025-08-07] MEDS: ATORVASTATIN 10 MG TAB PO SCH (08:16)
--- NOTE | 2025-08-07 09:45 | Hospitalist Progress Note ---
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 in January 2013, history of right lower extremity/right iliac vein/right common femoral DVT s/p cardiac catheterization prior to mitral valve repair operation with documented resolution on duplex s/p treatment with Coumadin, mild aortic root/proximal ascending aorta dilatation, HTN, history of traumatic subdural hematoma in 2017, cervical myelopathy s/p C3-C6 posterior cervical decompression, 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 #Right clavicular fracture with adjacent 11 cm hematoma s/p mechanical fall -ISO eliquis -Acute blood loss anemia due to hematoma -Hgb 13-->11.5 Plan -Appreciate ortho input -Follow Hgb. transfuse < 7 -Hold eliquis until Hgb stabilizes -Pain control -PT/OT #Chronic hyponatremia -Asymptomatic, mild -Monitor #Persistent atrial fibrillation Holding Eliquis for now as outlined above Rate-controlled, continue BB #Parkinson's disease 3-4 reported mechanical falls over the past 3 months (increasing frequency per pt's ) Does not use assistive devices for ambulation at baseline Appreciate PT/OT evaluation to assist mobility status #Chronic systolic CHF -At baseline -Resume home lasix #HLD #Nonobstructive CAD Continue statin #Mild aortic root/proximal ascending aorta dilatation Prior diagnosis Mild fusiform dilation of the ascending thoracic aorta, 4.0 x 4.0 cm without dissection noted on chest CTA TTE, 01/2025: mildly enlarged proximal ascending thoracic aorta #Myxomatous mitral valve disease with severe mitral regurgitation s/p complex mitral valve repair in January 2013 Follows with [facility] cardiology, Dr. Colbert TTE, 01/2025: LVEF = 55-59%, severely enlarged LA (c/w pt's h/o atrial fibrillation), mild MR/TR DVT Prophylaxis: Eliquis on hold, SCDs/TEDs only for now ISO above Code Status: FULL CODE PCP: Davi Kaur MD I spent a total of 38 minutes coordinating, documenting, and providing care for this patient excluding time spent in the performance of separately billed services. This included personally reviewing all current laboratories and imaging studies, medical reconciliation, outpatient chart review and discussion with specialists Admission and Anticipated Discharge Date Admission Date: August 06, 2025 Subjective Feeling well today. c/o R clavicle pain. Patient denies F/C, CP, palpitations, SOB, dyspnea, abd pain, N/V/D. updated on phone Physical Exam Physical Exam: Vitals and labs reviewed General: Well appearing, NAD HEENT: EOMI, PERRLA Neck: Supple Cardiac: irregular rhythm. regular rate. Lungs: CTA no rhonchi wheezing or rales Abd: S NT ND BS positive : Deffered MSK: ecchymoses over R clavicle. TTP. Limited ROM in R shoulder due to pain. Ext: No Edema cyanosis Skin: Warm, Dry Neuro: AOx3 No focal deficits. Psych: Normal Mood Results & Data Results & Data Vital Signs (Past 12 Hours) Vital Signs Temp Pulse Pulse Resp BP Pulse Ox O2 Del Method 08/07/25 07:25 36.8 C 62 18 104/65 98 Room Air 08/07/25 04:30 36.6 C 65 18 103/67 99 Room Air 08/06/25 23:28 36.9 C 74 18 111/66 97 Room Air Laboratory Results Abnormal lab results 08/06/25 08/06/25 08/07/25 Range/Units 11:06 19:56 00:34 RBC 3.99 L (4.70-6.10) M/uL Hgb 13.0 L 11.6 L 12.1 L (14.0-18.0) g/dl Hct 36.8 L 32.3 L 34.0 L (42.0-52.0) % Plt Count 123 L (130-400) K/uL PT 12.7 H (9.0-12.0) Seconds INR 1.2 H (0.9-1.1) APTT 32 H (21-31) Seconds Sodium 129 L 128 L (136-145) mmol/L Chloride 94 L (98-107) mmol/L BUN/Creatinine Ratio 20.3 H (10-20) Osmolality 274 L (280-300) mOsm/kg Total Bilirubin 1.1 H (0.2-1.0) mg/dl ALT (7-52) U/L Total Protein (6.0-8.3) gm/dl Globulin 2.4 L (2.5-4.0) gm/dl Albumin/Globulin Ratio (0.9-2) 08/07/25 Range/Units 06:06 RBC 3.54 L (4.70-6.10) M/uL Hgb 11.5 L (14.0-18.0) g/dl Hct 32.7 L (42.0-52.0) % Plt Count 116 L (130-400) K/uL PT (9.0-12.0) Seconds INR (0.9-1.1) APTT (21-31) Seconds Sodium 129 L (136-145) mmol/L Chloride 94 L (98-107) mmol/L BUN/Creatinine Ratio 20.3 H (10-20) Osmolality (280-300) mOsm/kg Total Bilirubin 1.4 H (0.2-1.0) mg/dl ALT 3 L (7-52) U/L Total Protein 5.7 L (6.0-8.3) gm/dl Globulin 1.8 L (2.5-4.0) gm/dl Albumin/Globulin Ratio 2.2 H (0.9-2) (1) Fall Encounter type: initial encounter Qualified Code(s): W19.XXXA - Unspecified fall, initial encounter (2) Right clavicle fracture Encounter type: initial encounter Clavicle location: unspecified part of clavicle Fracture type: closed Fracture alignment: displaced Qualified Code(s): S42.001A - Fracture of unspecified part of right clavicle, initial encounter for closed fracture
[2025-08-07] MEDS: FUROSEMIDE 20 MG TAB PO SCH (10:37)
--- NOTE | 2025-08-07 11:18 | Orthopedic Consultation ---
Date of Consultation August 07, 2025 Assessment & Plan (1) Clavicle fracture: Nonsurgical treatment recommended. Sling to be worn at all times except to shower He may perform PT and OT with finger, wrist, and elbow motion. Leave the shoulder immobile for 2 weeks. Do not bear any weight on the right arm. May resume Eliquis tomorrow, but needs to carefully monitor hematoma to ensure it does not enlarge Ice and pain medications per hospitalist. Avoid NSAIDs. Follow-up in ortho clinic in 2 weeks to see Greg Hanson PA-C with x-rays to be done at that visit. (2) Chronic anticoagulation: Supervising Physician Co-Signing Physician Notes I saw and examined patient, interpreted his imaging, formulated the plan and performed substantive portion of the visit. Agree with above note. History of Present Illness Reason for Consultation: Right clavicle fracture Attending Physician: Caio Koch DO History of Present Illness This 75-year-old male with past medical history significant for HLD, nonobstructive CAD, myxomatous mitral valve disease with severe mitral regurgitation s/p complex mitral valve repair in January 2013, history of right lower extremity/right iliac vein/right common femoral DVT s/p cardiac catheterization prior to mitral valve repair operation with documented resolution on duplex s/p treatment with Coumadin, mild aortic root/proximal ascending aorta dilatation, HTN, history of traumatic subdural hematoma in 2016, cervical myelopathy s/p C3-C6 posterior cervical decompression, history of jejunal diverticulitis s/p laparoscopic small bowel resection, persistent atrial fibrillation anticoagulated on Eliquis, chronic systolic CHF, venous stasis dermatitis of both lower extremities, BPH with LUTS, left renal mass, FAZAL and Parkinson's disease who presented to the ED with complaint of right shoulder pain s/p mechanical fall at home. The patient states he was pulling some weeds and got his foot trapped in additional weeds. He fell onto his right side and had immediate onset of pain. He was able to pull himself up on his wood pile and had his bring him to the ED for evaluation. He was found to have an acute right clavicular fracture with adjacent 11cm hematoma extending into the supraclavicular tissues. [id number]. He denies any numbness or tingling. No prior history of clavicular injury. He takes Eliquis twice daily, which likely contributed to his extensive hematoma. He was admitted to the hospital last evening. Orthopaedics was consulted for eval and treatment of the right clavicle fracture. Allergies Allergy/AdvReac Type Severity Reaction Status Date / Time Penicillins Allergy Mild rash Verified 06/04/25 13:14 Home Medications Medication Instructions Recorded Confirmed Type apixaban 5 mg tablet (Eliquis) 5 mg PO BID 08/23/23 08/06/25 History atorvastatin 10 mg tablet 10 mg PO DAILY 08/23/23 08/06/25 History metoprolol succinate 25 mg 25 mg PO HS 08/23/23 08/06/25 History tablet,extended release 24 hr carbidopa 25 mg-levodopa 100 mg 1.5 tab PO TID 08/06/25 08/06/25 History tablet furosemide 20 mg tablet 20 mg PO QAM 08/06/25 08/06/25 History Patient History Medical History Pressure injury of sacral region, stage 1 Cervical vertebral fusion Tubulovillous adenoma of colon Cervical myelopathy Colon polyps Tortuous colon BPH loc w urin obs/LUTS Intracerebral hemorrhage Subdural hematoma CHI (closed head injury) 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 History of rectal abscess Mitral regurgitation Diverticulosis Surgical History H/O excision of lamina of cervical vertebra for decompression of spinal cord History of esophagogastroduodenoscopy (EGD) History of incision and drainage History of cholecystectomy H/O colonoscopy Family History Mother Cancer Father Cancer Social History Smoking Status: Never smoker Hx Alcohol Use: No Hx Substance Use: No Preferred Language: Nauruan Communication Ability: Effective Visual Impairment: No Limitations Hearing Ability: Normal Transcribing Operators Supervisor Required: No Beliefs That Will Affect Care: None marital status: Current Living Situation: Spouse current occupational status: employed Other Information That Helps Us Care for You: No Feels Safe at Home: Yes Safety Concerns: Feels Safe At This Time Diet: regular caffeine: Yes during the past year weight has: decreased > 10 lbs Do you think of yourself as: straight/heterosexual Gender Identity: Male Assistive Devices: Cane and Walker Review of Systems Review of Systems: All systems reviewed & are unremarkable except as noted in HPI & below Physical Exam Physical Exam: General: Well-developed, well-nourished, elderly white male, in no acute distress. Resting comfortably in bed. Skin: Warm and dry with good turgor. No rashes. Extensive tattoos on his arms. He has a large hematoma over the right clavicle. No open wounds. RUE: sling in place. Swelling and bruising over the midclavicle. Tender to palpation here. No skin tenting. Distally NVI. Intact motor function of the e lbow, wrist, and digits. Radial, median, and ulnar nerve functions are intact for both motor and sensory. Peripheral pulses are 2+. Results & Data Vital Signs (Past 12 Hours) Vital Signs Temp Pulse Pulse Resp BP BP Pulse Ox 08/07/25 11:08 37.0 C 69 18 102/54 L 95 08/07/25 07:25 36.8 C 62 18 104/65 98 08/07/25 04:30 36.6 C 65 18 103/67 99 08/06/25 23:28 36.9 C 74 18 111/66 97 O2 Del Method 08/07/25 11:08 Room Air 08/07/25 07:25 Room Air 08/07/25 04:30 Room Air 08/06/25 23:28 Room Air Diagnostic Findings I independently interpreted his shoulder, clavicle and chest XR, and Chest CT. He has a comminuted clavicle fracture with minimal displacement. (1) Clavicle fracture Encounter type: initial encounter Clavicle location: shaft Fracture type: closed Fracture alignment: nondisplaced Laterality: right Qualified Code(s): S42.024A - Nondisplaced fracture of shaft of right clavicle, initial encounter for closed fracture
[2025-08-07] MEDS: MoRPHine SULFATE 4 MG/ML 1 ML CARP\\VIAL IV PRN (20:50)
[2025-08-08 06:19] LABS: Anion Gap 7.0 (3-11); Blood Urea Nitrogen 15.0 mg/dl (6-23); Calcium 8.9 mg/dl (8.6-10.3); Carbon Dioxide 28.0 mmol/L (21-32); Chloride 94.0 mmol/L (98-107); Creatinine Clr Calc Pharmacy 93.3 ml/min; Glucose 86.0 mg/dl (70-99(Fasting)); Potassium 4.1 mmol/L (3.5-5.1); Sodium 129.0 mmol/L (136-145)
[2025-08-08 08:22] VITALS: RESP 16
--- NOTE | 2025-08-08 09:58 | Orthopedic Progress Note ---
Date of Service August 08, 2025 Assessment & Plan (1) Clavicle fracture: Plan: Nonsurgical treatment recommended. Sling to be worn at all times except to shower He may perform PT and OT with finger, wrist, and elbow motion. Leave the shoulder immobile for 2 weeks. Do not bear any weight on the right arm. May resume Eliquis tomorrow, but needs to carefully monitor hematoma to ensure it does not enlarge Ice and pain medications per hospitalist. Avoid NSAIDs. Follow-up in ortho clinic in 2 weeks to see Greg Hanson PA-C with x-rays to be done at that visit. (2) Chronic anticoagulation: Admission and Anticipated Discharge Date Admission Date: August 06, 2025 Subjective This 75-year-old male seen today for follow-up of a right clavicle fracture that is being treated conservatively with the use of a sling. Patient states that the swelling over the clavicle is much better than it was yesterday. He is still not moving at the shoulder. He is hoping to be discharged home. Currently denies chest pain, shortness of breath, fever, chills, sweats, nausea, vomiting, diarrhea, difficulty voiding or numbness or tingling in the right upper extremity. Review of Systems Review of Systems: All systems reviewed & are unremarkable except as noted in Subjective Physical Exam Physical Exam: Right upper extremity: Patient has visible edema and erythema with a palpable defect of the midshaft of the clavicle. There is also some edema and erythema over the AC joint. Patient experiences tenderness to palpation with light touch. He is able to reach terminal flexion and extension at his elbow. Has full range of motion of his hand wrist and fingers. His peripheral pulses are 2+. He is able to detect light sensation to touch over the pads of all digits. Capillary fill is less than 2 seconds. Toll Line Mechanic strength is equal bilaterally. He has no deficits with strength or sensation in his hands. Results & Data Vital Signs (Past 12 Hours) Vital Signs Temp Pulse Pulse Resp BP BP Pulse Ox 08/08/25 08:22 36.8 C 64 16 100/61 98 08/08/25 04:00 36.6 C 68 18 102/63 96 08/08/25 00:20 76 08/08/25 00:00 36.7 C 82 18 118/69 96 O2 Del Method 08/08/25 08:22 Room Air 08/08/25 04:00 Room Air 08/08/25 00:20 08/08/25 00:00 Room Air Diagnostic Findings Laboratory Results WBC 6.86 K/ul (4.8-10.8) 08/07/25 06:06 RBC 3.54 M/uL (4.70-6.10) L 08/07/25 06:06 Hgb 11.5 g/dl (14.0-18.0) L 08/08/25 05:35 Hct 32.7 % (42.0-52.0) L 08/07/25 06:06 MCV 92.4 fL (80.0-100.0) 08/07/25 06:06 MCH 32.5 pg (25.0-34.0) 08/07/25 06:06 MCHC 35.2 g/dL (32.0-36.0) 08/07/25 06:06 RDW Std Deviation 43.5 fL (36.4-46.3) 08/07/25 06:06 RDW Coeff of Rudi 12.7 % (11.5-14.5) 08/07/25 06:06 Plt Count 116 K/uL (130-400) L 08/07/25 06:06 MPV 10.1 fL (9.4-12.4) 08/07/25 06:06 Immature Gran % (Auto) 0.7 % 08/06/25 11:06 Neut % (Auto) 64.0 % 08/06/25 11:06 Lymph % (Auto) 22.1 % 08/06/25 11:06 [place] % (Auto) 9.6 % 08/06/25 11:06 Eos % (Auto) 2.7 % 08/06/25 11:06 Baso % (Auto) 0.9 % 08/06/25 11:06 Neut # (Auto) 3.58 K/uL (1.40-6.50) 08/06/25 11:06 Lymph # (Auto) 1.24 K/uL (1.20-3.40) 08/06/25 11:06 [place] # (Auto) 0.54 K/uL (0.11-0.59) 08/06/25 11:06 Eos # (Auto) 0.15 K/uL (0.00-0.50) 08/06/25 11:06 Baso # (Auto) 0.05 K/uL (0.00-0.20) 08/06/25 11:06 Immature Gran # (Auto) 0.04 K/uL (0.01-0.20) 08/06/25 11:06 PT 12.7 Seconds (9.0-12.0) H 08/06/25 11:06 INR 1.2 (0.9-1.1) H 08/06/25 11:06 APTT 32 Seconds (21-31) H 08/06/25 11:06 PTT Ratio 1.2 08/06/25 11:06 Sodium 129 mmol/L (136-145) L 08/08/25 05:35 Potassium 4.1 mmol/L (3.5-5.1) 08/08/25 05:35 Chloride 94 mmol/L (98-107) L 08/08/25 05:35 Carbon Dioxide 28 mmol/L (21-32) 08/08/25 05:35 Anion Gap 7 (3-11) 08/08/25 05:35 BUN 15 mg/dl (6-23) 08/08/25 05:35 Creatinine 0.60 mg/dl (0.6-1.4) 08/08/25 05:35 Est Cr Clr Drug Dosing 93.3 ml/min 08/08/25 05:35 eGFR 99.42 08/08/25 05:35 BUN/Creatinine Ratio 25.0 (10-20) H 08/08/25 05:35 Glucose 86 mg/dl (70-99(Fasting)) 08/08/25 05:35 Osmolality 274 mOsm/kg (280-300) L 08/06/25 11:06 Calcium 8.9 mg/dl (8.6-10.3) 08/08/25 05:35 Total Bilirubin 1.4 mg/dl (0.2-1.0) H 08/07/25 06:06 AST 18 U/L (13-39) 08/07/25 06:06 ALT 3 U/L (7-52) L 08/07/25 06:06 Alkaline Phosphatase 65 U/L (34-104) 08/07/25 06:06 Total Protein 5.7 gm/dl (6.0-8.3) L 08/07/25 06:06 Albumin 3.9 gm/dl (3.4-5.0) 08/07/25 06:06 Globulin 1.8 gm/dl (2.5-4.0) L 08/07/25 06:06 Albumin/Globulin Ratio 2.2 (0.9-2) H 08/07/25 06:06 Lipase 28 U/L (11-82) 08/06/25 11:06 Urine Osmolality 599 mOsm/kg (500-800) 08/06/25 Unknown Ur Random Sodium 120 mmol/L 08/06/25 Unknown Impressions Cervical Spine CT 08/06/25 10:52 CT cervical spine wo con CT DOSE: 1235.47 mGy.cm CLINICAL HISTORY: 75 years-old Male with Trauma. Acute neck trauma status post COMPARISON: Head CT same day TECHNIQUE: Multiple axial CT images of the cervical spine were obtained without contrast. A dose lowering technique was utilized adhering to the principles of ALARA. FINDINGS: Demineralized appearance of the bones. Multilevel degenerative changes include moderate disc space narrowing with degenerative partial bony fusion at C5-C6 and C6-C7. Posterior interbody cristian and screw fusion hardware and posterior decompression is noted at C3-C6. No evidence of hardware fracture or definite loosening. No acute fracture or subluxation identified. Multilevel neural foraminal narrowing. Acute, comminuted, angled and displaced partially imaged mid right clavicular fracture with adjacent edema and 6 cm hematoma. Median sternotomy wires are present. The visualized lung apices appear clear. IMPRESSION: 1. No acute cervical spine fracture or subluxation identified. 2. Partially imaged acute, comminuted, angulated and displaced right clavicular fracture with adjacent hematoma. 3. Degenerative and postoperative changes as above. ACT 112: Negative or not required by law. The above report was generated using voice recognition software. It may contain grammatical, syntax or spelling errors. Electronically signed by: Arthur De Los Santos M.D. 08/06/2025 12:25 PM Chest X-Ray 08/06/25 10:52 XR chest 1V not portable CLINICAL HISTORY: Trauma COMPARISON STUDY: 08/23/2023 FINDINGS: Stable cardiac valve repair. Heart size and pulmonary vasculature are normal. No consolidation or pleural effusion. No pneumothorax. There is an acute fracture at the right clavicle. IMPRESSION: Acute fracture at the right clavicle with no pneumothorax. ACT 112: Negative or not required by law. Electronically signed by: Zak Lion M.D. 08/06/2025 2:[address] 08/06/25 10:52 CT head/brain wo con CLINICAL HISTORY: trauma. TECHNIQUE: Multiple axial CT images of the head were obtained without contrast. A dose lowering technique was utilized adhering to the principles of ALARA. CT DOSE: 1235 COMPARISON: 10/30/2023 FINDINGS: No intracranial hemorrhage seen. No mass effect, midline shift, or hydrocephalus. No skull fracture seen. Visualized paranasal sinuses and mastoid air cells are clear. IMPRESSION: No acute findings. ACT 112: Negative or not required by law. The above report was generated using voice recognition software. It may contain grammatical, syntax or spelling errors. Electronically signed by: Zak Lion M.D. 08/06/2025 12:18 PM Humerus X-Ray 08/06/25 10:52 XR shoulder RT min 2V routine, XR humerus RT 2V CLINICAL HISTORY: fall COMPARISON: None FINDINGS: There is an acute mildly comminuted mildly displaced fracture at the mid to distal shaft of the right clavicle. No other fracture or dislocation seen at the right shoulder or right humerus. IMPRESSION: Acute fracture at the right clavicle. ACT 112: Negative or not required by law. Electronically signed by: Zak Lion M.D. 08/06/2025 2:15 PM Pelvis X-Ray 08/06/25 10:52 XR pelvis 1-2V routine CLINICAL HISTORY: Trauma COMPARISON: None FINDINGS: No fracture or dislocation seen. IMPRESSION: No fracture seen. ACT 112: Negative or not required by law. Electronically signed by: Zak Lion M.D. 08/06/2025 2:14 PM Shoulder X-Ray 08/06/25 10:52 XR shoulder RT min 2V routine, XR humerus RT 2V CLINICAL HISTORY: fall COMPARISON: None FINDINGS: There is an acute mildly comminuted mildly displaced fracture at the mid to distal shaft of the right clavicle. No other fracture or dislocation seen at the right shoulder or right humerus. IMPRESSION: Acute fracture at the right clavicle. ACT 112: Negative or not required by law. Electronically signed by: Zak Lion M.D. 08/06/2025 2:15 PM Chest CTA 08/06/25 12:54 CT angio chest w con CT DOSE: 452.12 mGy.cm HISTORY: 75 years-old Male with R clavicle fracture with large expanding hematoma. Acute right chest wall pain status post trauma TECHNIQUE: Multiple CTA images of the chest were obtained after the intravenous administration of 112 ml Optiray. Coronal and sagittal MIPS were obtained from the axial data set and were submitted for review. All measurements were obtained according to NASCET criteria. A dose lowering technique was utilized adhering to the principles of ALARA. COMPARISON: CT abdomen and pelvis 10/30/2023 FINDINGS: CTA: Cardiomegaly with prosthetic mitral valve. Mild coronary artery calcifications. Median sternotomy. Mild fusiform dilation of the ascending thoracic aorta, 4.0 x 4.0 cm without dissection. Patent imaged great vessels. No pulmonary emboli identified. CT CHEST: Acute, comminuted, angulated, displaced and foreshortened fracture involves the mid to distal third of the right clavicle. There is adjacent deep tissue edema with 11 cm hematoma. No areas of active extravasation identified. Hematoma com presses the adjacent internal jugular vein. Partially imaged large lipoma in the left upper arm measures over 8 cm. No additional acute fracture identified. Degenerative changes of the shoulders and spine. No dominant thyroid nodule. No lymphadenopathy. Nonspecific right hilar lymph nodes measure up to 8 mm. No pneumothorax, pleural effusion or overt pulmonary edema. No suspicious pulmonary nodules or masses. Subsegmental dependent right basilar atelectasis. No acute upper abdominal abnormality. Left renal cysts are present. Postoperative changes are noted within the upper abdominal bowel loop. IMPRESSION: 1. Acute, comminuted, angulated, displaced and foreshortened right clavicular fracture with adjacent 11 cm hematoma extends into the supraclavicular tissues. No active extravasation. 2. No mild dilation of the ascending thoracic aorta measures 4 cm. Otherwise unremarkable CTA component of the study 3. No pneumothorax. ACT 112: Negative or not required by law. The above report was generated using voice recognition software. It may contain grammatical, syntax or spelling errors. Electronically signed by: Arthur De Los Santos M.D. 08/06/2025 1:41 PM (1) Clavicle fracture Clavicle location: shaft Encounter type: initial encounter Fracture alignment: nondisplaced Fracture type: closed Laterality: right Qualified Code(s): S42.024A - Nondisplaced fracture of shaft of right clavicle, initial encounter for closed fracture
--- NOTE | 2025-08-08 10:23 | Discharge Summary ---
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, history of right lower extremity/right iliac vein/right common femoral DVT s/p cardiac catheterization prior to mitral valve repair operation with documented resolution on duplex s/p treatment with Coumadin, mild aortic root/proximal asc ending aorta dilatation, HTN, history of traumatic subdural hematoma in 2017, cervical myelopathy s/p C3-C6 posterior cervical decompression, 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 Ortho was consulted; non operative management. He is to f/u with them in two weeks in the office for repeat x rays. His Hgb dropped from 13 on admission but stabilized at 11.7 today. He feels well and wishes to go home. ortho recommending eliquis be resumed tomorrow. He is instructed to ask his PCP for repeat Hgb on monday/monday. #Right clavicular fracture with adjacent 11 cm hematoma s/p mechanical fall -ISO eliquis -Acute blood loss anemia due to hematoma -Hgb 13-->11.5 Plan -Appreciate ortho input -Follow Hgb. transfuse < 7 -Hold eliquis until Hgb stabilizes -Pain control -PT/OT #Chronic hyponatremia -Asymptomatic, mild -Monitor #Persistent atrial fibrillation Holding Eliquis for now as outlined above Rate-controlled, continue BB #Parkinson's disease 3-4 reported mechanical falls over the past 3 months (increasing frequency per pt's ) Does not use assistive devices for ambulation at baseline Appreciate PT/OT evaluation to assist mobility status #Chronic systolic CHF -At baseline -Resume home lasix #HLD #Nonobstructive CAD Continue statin #Mild aortic root/proximal ascending aorta dilatation Prior diagnosis Mild fusiform dilation of the ascending thoracic aorta, 4.0 x 4.0 cm without dissection noted on chest CTA TTE, 01/2025: mildly enlarged proximal ascending thoracic aorta #Myxomatous mitral valve disease with severe mitral regurgitation s/p complex mitral valve repair in January 2013 Follows with [facility] cardiology, Dr. Colbert TTE, 01/2025: LVEF = 55-59%, severely enlarged LA (c/w pt's h/o atrial fibrillation), mild MR/TR DVT Prophylaxis: Eliquis on hold, SCDs/TEDs only for now ISO above Code Status: FULL CODE PCP: Davi Kaur MD I spent a total of 37minutes coordinating, documenting, and providing care for this patient excluding time spent in the performance of separately billed services. 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 s/p complex mitral valve repair in January 2013, history of right lower extremity/right iliac vein/right common femoral DVT s/p cardiac catheterization prior to mitral valve repair operation with documented resolution on duplex s/p treatment with Coumadin, mild aortic root/proximal ascending aorta dilatation, HTN, history of traumatic subdural hematoma in 2017, cervical myelopathy s/p C3-C6 posterior cervical decompression, 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 History obtained from the patient, patient's at bedside, discussion with ED provider and associated chart review. Sustained mechanical fall while outside stacking wood piles behind his house. Notes he tripped over the tall grass and weeds. Denies any prodromal symptoms. No LOC. Landed on right side, primarily right shoulder and right side of face. Significant right shoulder pain s/p fall. Was able to get up off the ground on his own and call his to bring him to the ED. Denies any chest pain or SOB. No reported right upper extremity paraesthesias or loss of tactile sensation. Able to flex and extend the right elbow however it is limited by pain and discomfort. No smoking history. Former alcohol use, quit >20 years ago. No recreational drug use. Has sustained about 3 or 4 falls in the past 3 months. History of Parkinson's disease. Does not use any assistive devices for ambulation at baseline. Discharge Exam Vitals and labs reviewed General: Well appearing, NAD HEENT: EOMI, PERRLA Neck: Supple Cardiac: RRR no rubs gallops or murmurs Lungs: CTA no rhonchi wheezing or rales Abd: S NT ND BS positive : Deffered MSK: Limited ROM in R shoulder Ext: No Edema cyanosis Skin: Warm, Dry. stable ecchymoses over R clavicle Neuro: AOx3 No focal deficits. Psych: Normal Mood Updated Medication List Medication Instructions Recorded Confirmed Type apixaban 5 mg tablet (Eliquis) 5 mg PO BID 08/23/23 08/06/25 History atorvastatin 10 mg tablet 10 mg PO DAILY 08/23/23 08/06/25 History metoprolol succinate 25 mg 25 mg PO HS 08/23/23 08/06/25 History tablet,extended release 24 hr carbidopa 25 mg-levodopa 100 mg 1.5 tab PO TID 08/06/25 08/06/25 History tablet furosemide 20 mg tablet 20 mg PO QAM 08/06/25 08/06/25 History oxycodone 5 mg tablet 5 mg PO Q8H PRN pain #12 tabs 08/08/25 Rx Hospital Stay Data Consultations 08/06/25 14:20 ED Decision to Admit Stat 08/06/25 14:34 Consult Orthopedic Surgery Routine Diagnostic Imagining Performed 08/06/25 10:52 CT cervical spine wo con Stat CT head/brain wo con Stat 08/06/25 12:54 CTA chest w con [CT angio chest w con] Stat Pending Results Patient Have Any Pending Studies at Discharge: No Discharge Instructions Given to Patient (Per Discharging Provider) Follow-up in ortho clinic in 2 weeks to see Greg Sefchick, PA-C with x-rays to be done at that visit. Call your PCP on monday to have repeat hemoglobin checked Resume your eliquis tomorrow 08/09 Return to ED if you get worsening pain, lightheadedness, fatigue, shortness of breath Total Time Total Time Spent Total Time Spent (In Minutes): 37
[2025-08-08 11:16] VITALS: TEMP 98.8; O2SAT 97
[2025-08-08 11:33] VITALS: BP 102/63; PULSE 65
== END 2025-08-08 14:42 | disposition home health service (06) | DRG 563 ==
LOC: ED 10:37 → 2N 14:34 → SUATTDRO 14:34 → 2N 16:15